=== PATIENT | female | born 1985 | race Caucasian/White ===

== ENCOUNTER 2017-02-06 09:26 | Emergency (ER) | payer MEDICAID ==
[2017-02-06 09:40] VITALS: BP 102/68
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
== END 2017-02-06 10:54 | disposition home or self-care (01) ==
LOC: UCCORT 09:26
DX: S00.83XA Contusion of other part of head, initial encounter (principal); X79.XXXA Intentional self-harm by blunt object, initial encounter; Y93.9 Activity, unspecified; Y92.199 Unspecified place in other specified residential institution as the place of occurrence of the external cause; F90.9 Attention-deficit hyperactivity disorder, unspecified type; R56.9 Unspecified convulsions; F79 Unspecified intellectual disabilities; F41.9 Anxiety disorder, unspecified; F32.9 Major depressive disorder, single episode, unspecified; F60.3 Borderline personality disorder
CPT/HCPCS: 99202; G0463

== ENCOUNTER 2017-04-04 17:07 | Emergency (ER) | payer MEDICAID ==
[2017-04-04 18:37] VITALS: BP 106/74
--- NOTE | 2017-04-04 18:53 | UC ---
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 Hx Last Menstrual Period: on depo ?: No Onset/Duration: Sudden Onset, Lasting Days - 2-3, Still Present Timing: Constant Severity Initially: Moderate Severity Currently: Moderate Pain Intensity: 6 Character: Burning Aggravating Factor(s): Urination Alleviating Factor(s): Nothing - Allergies/Home Medications Allergies/Adverse Reactions: Allergies Allergy/AdvReac Type Severity Reaction Status Date / Time No Known Allergies Allergy Verified 04/04/17 18:36 PMH/Surg Hx/FS Hx/Imm Hx Previously Healthy: No Endocrine History: Hypothyroidism Neurological History: Seizures Psychological History: Anxiety, Bipolar Disorder - Surgical History Surgical History: Yes Surgery Procedure, Year, and Place: SURGERY AN INFANT - Family History Known Family History: Positive: Hypertension - Social History Occupation: Employed Full-time Lives: [place] Alcohol Use: Rare Substance Use Type: None Smoking Status (MU): Never Smoked Tobacco Review of Systems Constitutional: Negative Skin: Negative Eyes: Negative ENT: Negative Respiratory: Negative Cardiovascular: Negative Gastrointestinal: Negative Genitourinary: Negative, Dysuria, Frequency, Urgency Motor: Negative Neurovascular: Negative Musculoskeletal: Negative Neurological: Negative Psychological: Negative Is Patient Immunocompromised?: No All Other Systems Reviewed And Are Negative: Yes Physical Exam Triage Information Reviewed: Yes Appearance: Well-Appearing, No Pain Distress, Well-Nourished Vital Signs: Initial Vital Signs Temp 98.7 F 04/04/17 18:28 Pulse 86 04/04/17 18:28 Resp 16 04/04/17 18:28 BP 106/74 04/04/17 18:28 Pulse Ox 100 04/04/17 18:28 Vital Signs Reviewed: Yes Eye Exam: Normal Eyes: Positive: Conjunctiva Clear ENT Exam: Normal ENT: Positive: Normal ENT inspection, Hearing grossly normal. Negative: Nasal congestion, Nasal drainage, Tonsillar swelling, Tonsillar exudate, Trismus, Muffled voice, Hoarse voice, Dental tenderness Dental Exam: Normal Neck exam: Normal Neck: Positive: Supple, Nontender, No Lymphadenopathy Respiratory Exam: Normal Respiratory: Positive: Chest non-tender, Lungs clear, Normal breath sounds, No respiratory distress, No accessory muscle use Cardiovascular Exam: Normal Cardiovascular: Positive: RRR, No Murmur, Pulses Normal, Brisk Capillary Refill Abdominal Exam: Normal Abdomen Description: Positive: No Organomegaly, Soft, Other: - suprapubic pain. Negative: CVA Tenderness (R), CVA Tenderness (L) Bowel Sounds: Positive: Present Musculoskeletal Exam: Normal Musculoskeletal: Positive: Strength Intact, ROM Intact, No Edema Neurological Exam: Normal Neurological: Positive: Alert, Muscle Tone Normal Psychological Exam: Normal Skin Exam: Normal UC Physical Exam Vital Signs On Initial Exam: Initial Vitals Temp Pulse Resp BP Pulse Ox 98.7 F 86 16 106/74 100 04/04/17 18:28 04/04/17 18:28 04/04/17 18:28 04/04/17 18:28 04/04/17 18:28 - Genitalia Exam Female Genitourinary: Genitalia without Lesions/Masses - tender labia minora with localized irratation---no vaginal discharge or bleeding ---internal exam not down as patient not tolerating Diagnostics - Laboratory Diagnostic Studies Completed/Ordered: ua -+2 blood otherwise wnl Complaint Female Dx - Course Course Of Treatment: external barrier cream and assist with hygiene prn, follow hematuria with pcp,. culture urine - Differential Dx/Diagnosis Provider Diagnoses: external gential irratation, hematuria Discharge - Discharge Plan Condition: Stable Disposition: HOME Patient Education Materials: Topical Barrier Preparations (On the skin), Hematuria (ED) Referrals: Merrick WALSH,Flora [Primary Care Provider] - 4 Days Additional Instructions: 1. Will culture urine 2. Assist patient with Hygiene and use barrier cream 3. Follow hematuria with PCP in next 3-5 days 4. To ED should symptoms worsen or fail to improve
--- NOTE | 2017-04-05 15:15 | UC ---
- Progress Note Progress Note: Please call patients residence and advise patient is positive for "GARDNERELLA VAGINALIS" This is treated with Flagyl 500mg po bid for 7 days... and assure patient gets rechecked by pcp---med has been sent to patients pharmacy
== END 2017-04-04 20:12 | disposition home or self-care (01) ==
LOC: UCEAST 17:07
DX: R31.9 Hematuria, unspecified (principal); N89.8 Other specified noninflammatory disorders of vagina; B96.89 Other specified bacterial agents as the cause of diseases classified elsewhere
CPT/HCPCS: 81003; 84702; 87086; 87480; 87510; 87660; 99212; G0463

== ENCOUNTER 2017-07-24 14:41 | Emergency (ER) | payer MEDICAID ==
[2017-07-24 15:07] VITALS: BP 97/62
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
== END 2017-07-24 15:42 | disposition home or self-care (01) ==
LOC: UCCORT 14:41
DX: L56.2 Photocontact dermatitis [berloque dermatitis] (principal)
CPT/HCPCS: 99211; G0463

== ENCOUNTER 2018-08-13 14:10 | Emergency (ER) | payer MEDICAID ==
--- OUTSIDE RECORDS SUMMARY | 2018-08-13 15:05 | XMS REPORT | Continuity of Care Document ---
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 Constipation Roslyn Smith NP Onset: 08/31/2016 Mood disorder Roslyn Smith NP Onset: 08/31/2016 Seizure Roslyn Smith NP Onset: 08/31/2016 Mild recurrent major depression Roslyn Smith NP Onset: 08/31 Family History Date Family Member(s) Observation Comments Mother Depression Social History Type Date Description Comments Sex Unknown ETOH Use Denies alcohol use Tobacco Use Reviewed: 04/16/18 Patient has never smoked Smoking Status Reviewed: 07/18/18 Patient has never smoked Allergies, Adverse Reactions, Alerts Description No Known Drug Allergies Medications Active Medications SIG Qnty Indications Ordering Date Provider Stool Softener Take 2 Capsules 60caps Nanava, 06/11/19 100mg Capsules (200MG) By Mouth AT Flora Goodman MD 19 Bedtime * Hold For Loose Stools * Cabergoline one tablet twice per [facility], 10/24/19 0.5mg Tablets week MD Rubia Doss Medroxyprogesterone Inject 1ML (150MG) un [facility], 09/13/19 Acetate Intramuscularly MD Rubia Doss 150mg/ml Suspension Every 3 Months Clonazepam 1 by mouth three 90tabs [facility], 08/03/19 1mg Tablets times a day MDD 3 MD Rubia Doss Risperdal 1 tab b ymouth q 30tabs [facility], 08/03/19 3mg Tablets daily MD Rubia Doss Premarin 1 By Mouth Every Day 30tabs Deya, 03/11/19 0.3mg Tablets MD Rubia Doss Fluticasone Propionate use [address] [facility], 11/16/19 nostril daily MD Ashely Doss 50mcg/Act Suspension SM Triple Antibiotic Apply Topically To [facility], 10/12/19 Affected Area Up To MD Ashely Doss 3.5-400-5000 Ointment Four Times A Day as Needed *May Use Up To 5 Consecutive Day Q-Tussin Take 2 Teaspoonfuls [facility] Deya, 10/12/19 100mg/5ML Solution By Mouth Every 4 Flora Goodman MD 17 Hours as Needed For Minor Cough Without Fever >100 [place]-Acid Take 1 Tablespoonful [facility], 09/07/19 [id number] By Mouth Every 4 MD Ashely Doss Suspension Hours as Needed For Stomach Upset And Heart Burn SM Hydrocortisone Apply Topically To [facility], 09/07/19 Maximum Strength Affected Area Up To MD Ashely Doss 1% Ointment 2Times A Day * May Use For Up To 3 Consecutive Days* Docqlace Take 2 Capsules 60caps Nanavati, 04/14/19 100mg Capsules (200MG) By Mouth AT Flora Goodman MD 16 Bedtime * Hold For Loose Stools * Fleet Enema give enema today- if 2units Merrick, 05/30/19 7-19GM/118ML no bm, repeat in 12 Flora Goodman MD 15 Enema hours. if no bm after 2nd enema- call pcp. [place] Carbonate one capsule three Other 02/23/19 300mg times a day Provider 15 Capsules Vitamin D3 Take 1 Capsule By 30capisaias Sin, 11/20/19 2000Unit Capsules Mouth Daily For Flora Goodman MD 14 Supplement Levothyroxine Sodium Take 1 Tablet By 30tabs [place], 11/01/19 75mcg Mouth 30 Minutes REJI Davis 13 Tablets Before Breakfast Citalopram Hydrobromide Take 1 Tablet By 30tabs Merrick, 06/15/19 20mg Mouth Daily Flora Goodman MD 12 Tablets Latanoprost 1 drop in each eye Unknown 0.005% Solution at bedtime 00 Biotene Dry Mouth use several times a Unknown Liquid day when mouth is 00 very dry otc Mapap Take 2 Tablets By 00tabs Merrick, 325mg Tablets Mouth Every 4 Hours Flora Goodman MD 00 Asneeded For Pain Or Fever >101*May Take Up To 7 Days Consecutively Risperidone one table by mouth Unknown 2mg Tablets every afternoon (in 00 addition to Am dose of 3mg) Quetiapine Fumarate one tablet by mouth Unknown 100mg at bedtime 00 Tablets Lamotrigine Take 1 Tablet By 60tabs Merrick, 100mg Tablets Mouth 2 Times Daily Flora Goodman MD 00 Oxybutynin Chloride ER 1 by mouth every day Unknown 10mg 00 Tablets ER 24HR History Medications Lamictal 1 by mouth twice a 60tabs B37.2 Flora Sin 08/02/2017 - 100mg day MD Rex 06/05/2018 Tablets Klonopin one at bedtime Flora Sin 04/19/2017 - 1mg Tablets MD Rex 04/19/2017 Risperdal 1 po tid 90tabs Flora Sin 04/09/2017 - 1mg Tablets MMD Thony 08/02/2017 Metronidazole 1 by mouth twice a 14tabs Flora Sin 04/09/2017 - 500mg day x 7 days. MD Rex 04/19/2017 Tablets Cipro 1 by mouth twice a 20tabs Flora Sin 07/19/2015 - 250mg Tablets day MD Rex 08/31/2015 Depo-Provera 150mg intramuscular 1ml Flora Sin 12/22/2014 - 150mg/ml every 3 months MD Rex 09/12/2017 Suspension Lactulose 30ml po x 2 days 60ml Flora Sin 05/29/2014 - 10GM/15ML MD Rex 03/15/2017 Solution Nystatin apply thin layer to 1units 112.3 Flora Sin 02/23/2014 - affected area on abd MMD Thony 04/09/2017 [id number]/GM Cream twice a day Lamotrigine 2 po three times a Other Provider 02/23/2014 - 25mg day 02/23/2014 Tablets Lamictal 2 po three times a 112.3 Other Provider 02/23/2014 - 25mg Tablets day 08/02/2017 Trospium Chloride take 1 tablet by 60tabs Flora Sin 01/28/2013 - mouth 2 times daily Cedric.MD 03/15/2017 20mg Tablets for bladder control Tropsium 1 tab PO bid Other Provider 10/15/2012 - 20mg 01/28/2013 D/C Order D/C ibuprofen 200 mg Flora Sin 08/26/2012 - 3 tabs po prn. PT MD Rex 09/09/2012 may only take 2 tabs po prn Ibuprofen 2 tabs by mouth 60tabs Flora Sin 08/19/2012 - 200mg every 4 hours as MMD Thony 03/15/2017 Tablets needed pain and menstraul cramps, with food up to 8 days consecutively Levothyroxine Sodium 1 po qd 30tabs Flora Sin 08/05/2012 - MD Rex 10/31/2012 50mcg Tablets Cyclessa 1 by mouth every day 1PK lFora Sin 05/09/2012 - MD Rex 08/31/2015 0.1/0.125/0.15 -0.025 mg Tablets Cyclessa 1 po qd 3Packs Flora Sin 05/09/2012 - Tablets MMD Thony 05/09/2012 Levothyroxine Sodium 1 po qd 30tabs Flora Sin 01/19/2012 - MD Rex 08/05/2012 75mcg Tablets Azithromycin 2 tab po today 1 tab 1Pack 461.0 Flora Sin 11/27/2011 - 250mg po qd x 4 M., 01/21/2012 Tablets Vesicare 1 po qd 30tabs Flora Sin 06/15/2011 - 10mg Tablets MMD Thony 10/15/2012 Cyclessa 1 po qd 3Packs Flora Sin 06/15/2011 - Tablets MD Rex 05/09/2012 Colace 2 tabs by mouth 60caps Flora Sin 06/15/2011 - 100mg Capsules every at bedtime MD Rex 04/14/2015 Risperdal 1 po qd 30tabs Flora Sin 06/15/2011 - 4mg Tablets MMD Thony 04/09/2017 [place] Carbonate 2 po bid 60caps Flora Sin 06/15/2011 - MD Rex 02/23/2014 300mg Capsules Klonopin 1 po qid 90tabs Flora Sin 06/15/2011 - 1mg Tablets MMD Thony 08/02/2017 Lamictal 2 po three times a SaadiaavaFlora rice 06/15/2011 - 25mg Tablets day MD Rex 02/23/2014 Levothyroxine Sodium 1 po qd 30tabs Odilia 06/09/2011 - NAVJOT Fan 01/19/2012 50mcg Tablets Medications Administered in Office Medication SIG Qnty Indications Ordering Provider Date Medroxyprogesterone Acetate, 1MG Farchione, Susan, 06/26/2018 - Use 150MG For Depo-Provera PA Injection Medroxyprogesterone Acetate, 1MG Farchione, Susan, 03/19/2018 - Use 150MG For Depo-Provera PA Injection Medroxyprogesterone Acetate, 1MG Farchione, Susan, 12/17/2017 - Use 150MG For Depo-Provera PA Injection Medroxyprogesterone Acetate, 1MG Location V1 Nurse 2 09/14/2017 - Use 150MG For Depo-Provera Injection Medroxyprogesterone Acetate, 1MG Nanavati, Digant M., 06/12/2017 - Use 150MG For Depo-Provera MD Injection Medroxyprogesterone Acetate, 1MG Farchione, Susan, 03/15/2017 - Use 150MG For Depo-Provera PA Injection Medroxyprogesterone Acetate, 1MG Nanavati, Digant M., 12/04/2016 - Use 150MG For Depo-Provera MD Injection Medroxyprogesterone Acetate, 1MG Depdennis Aquinoo, 08/31/2016 - Use 150MG For Depo-Provera Roslyn, SENIOR ANALYST PROGRAMMER Injection Medroxyprogesterone Acetate, 1MG Nanavati, Digant M., 06/15/2016 - Use 150MG For Depo-Provera MD Injection Medroxyprogesterone Acetate, 1MG Nanavati, Digant M., 06/15/2016 - Use 150MG For Depo-Provera MD Injection Medroxyprogesterone Acetate, 1MG Nanavati, Digant M., 03/16/2016 - Use 150MG For Depo-Provera MD Injection Medroxyprogesterone Acetate, 1MG Nanavati, Digant M., 12/16/2015 - Use 150MG For Depo-Provera MD Injection Medroxyprogesterone Acetate, 1MG Nanavati, Digant M., 10/04/2015 - Use 150MG For Depo-Provera MD Injection Medroxyprogesterone Acetate, 1MG Nanavati, Digant M., 07/05/2015 - Use 150MG For Depo-Provera MD Injection Medroxyprogesterone Acetate, 1MG Nanavati, Digant M., 04/05/2015 - Use 150MG For Depo-Provera MD Injection Medroxyprogesterone Acetate, 1MG Nataliia Kenny, SENIOR ANALYST PROGRAMMER 01/05/2015 - Use 150MG For Depo-Provera Injection PPD Nanavati, Digant M., 09/15/2011 Injection MD Immunizations CPT Code Status Date Vaccine Lot # [id number] Given 12/10/2017 Influenza Virus Vaccine,Quadrivalent,Split,Preserv [id number] Free, 0.5mL,[place] [address] Given 12/04/2016 Influenza Virus Vaccine,Quadrivalent,Split,Preserv [id number] Free, 0.5mL,[place] 28079 Given 12/16/2015 Influenza Vac, Quadrivalent, Split, 0.5mL Dosage, [id number] Im Use 48056 Given 08/31/2015 Tdap (Adacel) Ages 7 And Above Only 23288 Given 11/03/2014 Influenza Vac, Quadrivalent, Split, 0.5mL Dosage, [id number] Im Use 48300 Given 11/19/2013 Influenza Virus Vaccine,Quadrivalent,Split,Preserv [id number] Free, 0.5mL,Im [id number] Given 01/19/2012 Fluvirin Immunization [id number] Given 11/12/2006 Tdap (Adacel) Ages 7 And Above Only Vital Signs Date Vital Result Comment 07/18/2018 1:11pm Body Temperature 97.9 F Weight 189.00 lb Heart Rate 71 /min BP Systolic 110 mmHg BP Diastolic 76 mmHg Respiratory Rate 16 /min Height 64 inches 5'4" O2 % BldC Oximetry 97 % BMI (Body Mass Index) 32.4 kg/m2 06/26/2018 3:30pm Weight 190.00 lb Heart Rate 89 /min BP Systolic 104 mmHg BP Diastolic 82 mmHg Respiratory Rate 16 /min Height 64 inches 5'4" O2 % BldC Oximetry 98 % BMI (Body Mass Index) 32.6 kg/m2 06/05/2018 1:09pm Body Temperature 98.4 F Weight 187.00 lb Heart Rate 54 /min BP Systolic 109 mmHg BP Diastolic 83 mmHg Respiratory Rate 16 /min Height 64 inches 5'4" O2 % BldC Oximetry 98 % BMI (Body Mass Index) 32.1 kg/m2 04/16/2018 10:19am Body Temperature 98.2 F Weight 187.31 lb Heart Rate 64 /min BP Systolic 96 mmHg BP Diastolic 69 mmHg Respiratory Rate 16 /min Height 64 inches 5'4" O2 % BldC Oximetry 98 % BMI (Body Mass Index) 32.1 kg/m2 03/19/2018 9:51am Weight 185.00 lb Heart Rate 68 /min BP Systolic 90 mmHg BP Diastolic 70 mmHg Respiratory Rate 16 /min Height 64 inches 5'4" O2 % BldC Oximetry 93 % BMI (Body Mass Index) 31.8 kg/m2 01/16/2018 9:45am Weight 180.00 lb Heart Rate 64 /min BP Systolic 98 mmHg BP Diastolic 76 mmHg Respiratory Rate 16 /min Height 64 inches 5'4" O2 % BldC Oximetry 99 % BMI (Body Mass Index) 30.9 kg/m2 12/17/2017 9:43am Weight 178.00 lb Heart Rate 57 /min BP Systolic 89 mmHg BP Diastolic 58 mmHg Respiratory Rate 16 /min Height 64 inches 5'4" O2 % BldC Oximetry 97 % BMI (Body Mass Index) 30.6 kg/m2 10/23/2017 1:04pm Weight 176.00 lb Heart Rate 91 /min BP Systolic 118 mmHg BP Diastolic 84 mmHg Respiratory Rate 16 /min Height 64 inches 5'4" O2 % BldC Oximetry 95 % BMI (Body Mass Index) 30.2 kg/m2 10/11/2017 3:09pm Body Temperature 98.0 F Weight 174.00 lb Heart Rate 78 /min BP Systolic 122 mmHg BP Diastolic 78 mmHg Respiratory Rate 16 /min Height 64 inches 5'4" O2 % BldC Oximetry 98 % BMI (Body Mass Index) 29.9 kg/m2 09/11/2017 10:30am Body Temperature 98.2 F Weight 174.00 lb Heart Rate 63 /min BP Systolic 100 mmHg BP Diastolic 68 mmHg Respiratory Rate 16 /min Height 64 inches 5'4" O2 % BldC Oximetry 98 % BMI (Body Mass Index) 29.9 kg/m2 06/12/2017 2:02pm Body Temperature 98.6 F Weight 169.00 lb Heart Rate 63 /min BP Systolic 102 mmHg BP Diastolic 73 mmHg Respiratory Rate 16 /min Height 64 inches 5'4" O2 % BldC Oximetry 98 % BMI (Body Mass Index) 29.0 kg/m2 04/19/2017 2:08pm Body Temperature 98.2 F Weight 165.00 lb Heart Rate 76 /min BP Systolic 124 mmHg BP Diastolic 70 mmHg Height 64 inches 5'4" O2 % BldC Oximetry 98 % BMI (Body Mass Index) 28.3 kg/m2 04/09/2017 1:02pm Body Temperature 97.8 F Weight 165.00 lb Heart Rate 84 /min BP Systolic 126 mmHg BP Diastolic 80 mmHg Height 64 inches 5'4" O2 % BldC Oximetry 99 % BMI (Body Mass Index) 28.3 kg/m2 03/15/2017 11:10am Body Temperature 98.7 F Weight 163.00 lb Heart Rate 70 /min BP Systolic 100 mmHg BP Diastolic 74 mmHg Respiratory Rate 16 /min Height 64 inches 5'4" O2 % BldC Oximetry 98 % BMI (Body Mass Index) 28.0 kg/m2 03/06/2017 1:07pm Body Temperature 98.0 F Weight 162.00 lb Heart Rate 68 /min BP Systolic 105 mmHg BP Diastolic 57 mmHg Respiratory Rate 16 /min Height 64 inches 5'4" O2 % BldC Oximetry 100 % BMI (Body Mass Index) 27.8 kg/m2 12/04/2016 10:59am Body Temperature 97.6 F Weight 152.00 lb Heart Rate 60 /min BP Systolic 118 mmHg BP Diastolic 70 mmHg Respiratory Rate 16 /min Height 64 inches 5'4" O2 % BldC Oximetry 98 % BMI (Body Mass Index) 26.1 kg/m2 11/15/2016 2:45pm Body Temperature 98.2 F Weight 153.00 lb Heart Rate 60 /min BP Systolic 116 mmHg BP Diastolic 62 mmHg Height 64 inches 5'4" O2 % BldC Oximetry 99 % BMI (Body Mass Index) 26.3 kg/m2 08/31/2016 9:59am Body Temperature 97.9 F Weight 151.00 lb Heart Rate 78 /min BP Systolic 132 mmHg BP Diastolic 78 mmHg Height 64 inches 5'4" O2 % BldC Oximetry 98 % BMI (Body Mass Index) 25.9 kg/m2 07/17/2016 2:16pm Body Temperature 98.4 F Weight 154.00 lb Heart Rate 63 /min BP Systolic 109 mmHg BP Diastolic 71 mmHg Respiratory Rate 18 /min Height 64 inches 5'4" O2 % BldC Oximetry 100 % BMI (Body Mass Index) 26.4 kg/m2 06/15/2016 2:01pm Body Temperature 97.6 F Weight 155.00 lb Heart Rate 83 /min BP Systolic 98 mmHg BP Diastolic 70 mmHg Respiratory Rate 16 /min Height 64 inches 5'4" O2 % BldC Oximetry 99 % BMI (Body Mass Index) 26.6 kg/m2 04/04/2016 11:47am Body Temperature 97.4 F Weight 157.00 lb Heart Rate 76 /min BP Systolic 104 mmHg BP Diastolic 66 mmHg Respiratory Rate 18 /min O2 % BldC Oximetry 98 % 03/16/2016 8:55am Body Temperature 99.0 F Weight 162.00 lb Heart Rate 78 /min BP Systolic 104 mmHg BP Diastolic 76 mmHg Respiratory Rate 16 /min Height 64 inches 5'4" O2 % BldC Oximetry 97 % BMI (Body Mass Index) 27.8 kg/m2 12/16/2015 9:58am Body Temperature 97.7 F Weight 164.00 lb Heart Rate 96 /min BP Systolic 102 mmHg BP Diastolic 66 mmHg Respiratory Rate 18 /min Height 64 inches 5'4" O2 % BldC Oximetry 99 % BMI (Body Mass Index) 28.1 kg/m2 10/04/2015 8:27am Body Temperature 97.8 F Weight 163.00 lb Heart Rate 68 /min BP Systolic 98 mmHg BP Diastolic 64 mmHg Respiratory Rate 16 /min Height 64 inches 5'4" O2 % BldC Oximetry 98 % BMI (Body Mass Index) 28.0 kg/m2 08/31/2015 10:11am Body Temperature 98.4 F Weight 163.00 lb Heart Rate 101 /min BP Systolic 110 mmHg BP Diastolic 70 mmHg Respiratory Rate 18 /min Height 64 inches 5'4" O2 % BldC Oximetry 99 % BMI (Body Mass Index) 28.0 kg/m2 07/05/2015 10:04am Body Temperature 98.8 F Weight 166.00 lb Heart Rate 78 /min BP Systolic 122 mmHg BP Diastolic 76 mmHg Respiratory Rate 18 /min Height 64 inches 5'4" O2 % BldC Oximetry 99 % BMI (Body Mass Index) 28.5 kg/m2 04/05/2015 9:40am Body Temperature 98.3 F Weight 171.00 lb Heart Rate 87 /min BP Systolic 110 mmHg BP Diastolic 72 mmHg Respiratory Rate 18 /min Height 64 inches 5'4" O2 % BldC Oximetry 98 % BMI (Body Mass Index) 29.3 kg/m2 02/02/2015 10:21am Weight 172.00 lb Heart Rate 76 /min BP Systolic 110 mmHg BP Diastolic 70 mmHg Respiratory Rate 18 /min Height 64 inches 5'4" BMI (Body Mass Index) 29.5 kg/m2 01/05/2015 8:11am Weight 175.38 lb Heart Rate 72 /min BP Systolic 87 mmHg BP Diastolic 63 mmHg Height 64 inches 5'4" BMI (Body Mass Index) 30.1 kg/m2 12/22/2014 3:43pm Body Temperature 98.9 F Weight 175.00 lb Heart Rate 69 /min BP Systolic 102 mmHg BP Diastolic 68 mmHg Respiratory Rate 18 /min Height 64 inches 5'4" O2 % BldC Oximetry 98 % BMI (Body Mass Index) 30.0 kg/m2 11/03/2014 1:14pm Body Temperature 98.6 F Weight 177.00 lb Heart Rate 60 /min BP Systolic 122 mmHg BP Diastolic 68 mmHg Respiratory Rate 18 /min Height 64 inches 5'4" O2 % BldC Oximetry 98 % BMI (Body Mass Index) 30.4 kg/m2 08/17/2014 2:07pm Body Temperature 96.2 F Weight 181.25 lb Heart Rate 80 /min BP Systolic 120 mmHg BP Diastolic 82 mmHg Respiratory Rate 16 /min Height 64 inches 5'4" O2 % BldC Oximetry 98 % BMI (Body Mass Index) 31.1 kg/m2 08/03/2014 11:19am Body Temperature 97.2 F Weight 183.00 lb Heart Rate 57 /min BP Systolic 109 mmHg BP Diastolic 68 mmHg Respiratory Rate 18 /min Height 64 inches 5'4" BMI (Body Mass Index) 31.4 kg/m2 05/26/2014 10:58am Body Temperature 97.6 F Weight 187.00 lb Heart Rate 62 /min BP Systolic 110 mmHg BP Diastolic 70 mmHg Respiratory Rate 16 /min Height 64 inches 5'4" O2 % BldC Oximetry 95 % BMI (Body Mass Index) 32.1 kg/m2 05/20/2014 2:18pm Body Temperature 99.2 F Weight 187.00 lb Heart Rate 112 /min BP Systolic 108 mmHg BP Diastolic 64 mmHg Respiratory Rate 18 /min Height 64 inches 5'4" O2 % BldC Oximetry 96 % BMI (Body Mass Index) 32.1 kg/m2 05/12/2014 10:00am Body Temperature 97.4 F Weight 185.00 lb Heart Rate 64 /min BP Systolic 96 mmHg BP Diastolic 60 mmHg Respiratory Rate 18 /min Height 64 inches 5'4" O2 % BldC Oximetry 96 % BMI (Body Mass Index) 31.8 kg/m2 02/23/2014 10:43am Body Temperature 97.5 F Heart Rate 64 /min BP Systolic 118 mmHg BP Diastolic 84 mmHg Respiratory Rate 16 /min Height 64 inches 5'4" O2 % BldC Oximetry 98 % 01/05/2014 2:59pm Body Temperature 98.4 F Weight 200.00 lb Heart Rate 72 /min BP Systolic 104 mmHg BP Diastolic 58 mmHg Respiratory Rate 18 /min Height 64 inches 5'4" BMI (Body Mass Index) 34.3 kg/m2 12/29/2013 4:08pm Body Temperature 98.0 F Weight 200.00 lb Heart Rate 84 /min BP Systolic 106 mmHg BP Diastolic 64 mmHg Respiratory Rate 16 /min Height 64 inches 5'4" BMI (Body Mass Index) 34.3 kg/m2 11/19/2013 9:04am Body Temperature 97.6 F Weight 203.00 lb Heart Rate 84 /min BP Systolic 114 mmHg BP Diastolic 74 mmHg Respiratory Rate 16 /min Height 64 inches 5'4" BMI (Body Mass Index) 34.8 kg/m2 09/22/2013 3:44pm Weight 206.25 lb Heart Rate 83 /min BP Systolic 95 mmHg BP Diastolic 73 mmHg 07/30/2013 11:47am Body Temperature 96.3 F Weight 210.00 lb Heart Rate 76 /min BP Systolic 106 mmHg BP Diastolic 62 mmHg Respiratory Rate 18 /min Height 62 inches 5'2" BMI (Body Mass Index) 38.4 kg/m2 05/15/2013 10:07am Body Temperature 97.1 F Weight 213.00 lb Heart Rate 66 /min BP Systolic 116 mmHg BP Diastolic 80 mmHg Respiratory Rate 16 /min Height 62 inches 5'2" O2 % BldC Oximetry 98 % BMI (Body Mass Index) 39.0 kg/m2 04/14/2013 10:17am Body Temperature 97.9 F Weight 215.00 lb Heart Rate 84 /min BP Systolic 118 mmHg BP Diastolic 80 mmHg Respiratory Rate 16 /min Height 62 inches 5'2" O2 % BldC Oximetry 98 % BMI (Body Mass Index) 39.3 kg/m2 01/14/2013 10:29am Body Temperature 99.4 F Weight 215.00 lb Heart Rate 76 /min BP Systolic 110 mmHg BP Diastolic 72 mmHg Respiratory Rate 16 /min Height 62 inches 5'2" O2 % BldC Oximetry 96 % BMI (Body Mass Index) 39.3 kg/m2 10/15/2012 9:15am Body Temperature 98.6 F Weight 214.00 lb Heart Rate 68 /min BP Systolic 106 mmHg BP Diastolic 58 mmHg Respiratory Rate 16 /min Height 62 inches 5'2" O2 % BldC Oximetry 98 % BMI (Body Mass Index) 39.1 kg/m2 08/19/2012 3:04pm Body Temperature 98.3 F Weight 214.25 lb Heart Rate 72 /min BP Systolic 102 mmHg BP Diastolic 80 mmHg Respiratory Rate 16 /min Height 62 inches 5'2" BMI (Body Mass Index) 39.2 kg/m2 07/15/2012 9:29am Body Temperature 97.8 F Weight 214.00 lb Heart Rate 68 /min BP Systolic 104 mmHg BP Diastolic 70 mmHg Respiratory Rate 16 /min Height 62 inches 5'2" BMI (Body Mass Index) 39.1 kg/m2 04/12/2012 9:14am Body Temperature 98.0 F Weight 222.00 lb Heart Rate 78 /min BP Systolic 104 mmHg BP Diastolic 72 mmHg Respiratory Rate 16 /min Height 62 inches 5'2" BMI (Body Mass Index) 40.6 kg/m2 03/01/2012 11:03am Body Temperature 97.5 F Weight 220.00 lb Heart Rate 64 /min BP Systolic 122 mmHg BP Diastolic 86 mmHg Respiratory Rate 16 /min Height 62 inches 5'2" BMI (Body Mass Index) 40.2 kg/m2 01/19/2012 3:19pm Body Temperature 98.5 F Weight 221.00 lb Heart Rate 70 /min BP Systolic 104 mmHg BP Diastolic 64 mmHg Respiratory Rate 16 /min Height 62 inches 5'2" BMI (Body Mass Index) 40.4 kg/m2 11/27/2011 2:57pm Body Temperature 98.4 F Weight 221.00 lb Heart Rate 80 /min BP Systolic 102 mmHg BP Diastolic 70 mmHg Respiratory Rate 16 /min Height 62 inches 5'2" BMI (Body Mass Index) 40.4 kg/m2 09/15/2011 10:41am Body Temperature 98.0 F Weight 225.00 lb Heart Rate 84 /min BP Systolic 106 mmHg BP Diastolic 72 mmHg Respiratory Rate 16 /min Height 62 inches 5'2" BMI (Body Mass Index) 41.1 kg/m2 05/29/2011 8:21am Body Temperature 98.8 F Weight 225.00 lb Heart Rate 84 /min BP Systolic 108 mmHg BP Diastolic 70 mmHg Respiratory Rate 18 /min Height 62 inches 5'2" BMI (Body Mass Index) 41.1 kg/m2 Results Test Date Facility Test Result H/L Range Note CBC with Auto Diff-fcmg 04/16/2018 [facility] WBC 12.8 10*3/uL High (4.1- 11.0) 1 RBC 4.49 10*6/uL (4.00-5.40) HGB 12.6 g/dL (12.0-16.0) HCT 40.3 % (36.0-47.0) MCV 89.8 fL (80.0-95.0) MCH 28.1 pg (27.0-32.0) MCHC 31.3 g/dL Low (32.0-36.0) RDW 15.5 % High (10.5-14.5) PLT 331 10*3/uL (150-450) MPV 9.8 fL (7.1-10.7) Neut % 70.8 % (35.0-75.0) Lymph % 20.1 % (16.0-52.0) [place] % 6.2 % (0.0-8.0) Eos % 2.0 % (0.0-5.0) Baso % 0.9 % (0.0-4.0) Neut # 9.1 10*3/uL High (1.8-7.7) Lymph # 2.6 10*3/uL (1.2-4.8) [place] # 0.8 10*3/uL (0.0-0.8) Eos # 0.3 10*3/uL (0.0-0.5) Baso # 0.1 10*3/uL (0.0-0.2) 2 Comprehensive Met Panel-[facility] 04/16/2018 [facility] Sodium 139 mmol/L (136- 145) Potassium 5.2 mmol/L (3.6-5.2) Chloride 105 mmol/L (100-108) Co2 27 mmol/L (22-31) Anion Gap 7 mmol/L (7-16) Urea Nitrogen 15 mg/dL (7-24) Creatinine 0.66 mg/dL (0.60-1.00) BUN/Creat Ratio 22.7 RATIO High (10.0-20.0) Glucose 51 mg/dL Low (70-99) Calcium 9.1 mg/dL (8.4-10.2) Total Protein 7.0 g/dL (6.4-8.2) Albumin 3.4 g/dL Low (3.5-4.6) Globulin 3.6 g/dL (2.7-4.3) Alb/Glob Ratio 0.9 RATIO Alkaline Phosphatase 121 U/L High (45-117) Bilirubin,Total 0.2 mg/dL (0.0-1.0) Ast (Sgot) 24 U/L (11-39) Alt (SGPT) 50 U/L (12-78) GFR >60 ml/min/1.73m2 (>59) GFR ( Amer) >60 ml/min/1.73m2 (>59) GFR Interpretation (SEE NOTE) 3 Laboratory test finding 04/16/2018 [facility] Vitamin B12 661 pg/mL (193- 986) 4 Vitamin D 25 Hydroxy 41 ng/mL (31-100) 5 Prolactin 241.1 ng/mL 6 Lipid Panel-RL 04/16/2018 [facility] Cholesterol @ 161 mg/dL (0-200) Triglyceride @ 82 mg/dL (30-200) HDL Cholesterol @ 52 mg/dL (>40) 7 Chol/HDL Ratio 3.1 RATIO 8 LDL Chol (Calc) 93 mg/dL (<130) 9 Laboratory test 03/19/2018 Done In [facility] Office 1 Preg Urine Negative Negative finding (In-House) Hemoglobin A1c 03/07/2018 [facility] Hgb A1c MFr Bld 5.1 % 4.0-6.0 10 HPLC Est. average glucose Bld gHb Est-mCnc 100 mg/dL <126 Laboratory test finding 03/07/2018 [facility] TSH 1.670 u[IU]/mL 0.270 -4.200 Free Thyroxine 1.10 ng/dL 0.93-1.70 Lipid Profile 1 03/07/2018 [facility] Cholest SerPl-mCnc 170 mg/dL < 200 Trigl SerPl-mCnc 81 mg/dL <150 HDLc SerPl-mCnc 59 mg/dL >50 LDLc SerPl Calc-mCnc 95 mg/dL <100 VLDLc SerPl Calc-mCnc 16 mg/dL 16-42 NonHDLc SerPl-mCnc 111 mg/dL <130 Laboratory test finding 03/07/2018 [facility] Vit D 25 Hydroxy 39 ng/mL >30 Total Comprehensive Metabolic 01/15/2018 [facility] Albumin SerPl 3.9 g/dL 3.5-5.2 Puente BCG-mCnc Bilirub SerPl-mCnc 0.3 mg/dL <1.2 Calcium SerPl-mCnc 9.5 mg/dL 8.6-10.0 Chloride SerPl-sCnc 104 mmol/L 98-107 Creat SerPl-mCnc 0.56 mg/dL 0.4-1.0 Glucose SerPl-mCnc 87 mg/dL 70-140 Alp SerPl-cCnc 104 U/L 35-104 Potassium SerPl-sCnc 4.7 mmol/L 3.5-5.1 Prot SerPl-mCnc 6.3 g/dL Low 6.4-8.3 Sodium SerPl-sCnc 138 mmol/L 136-145 Ast SerPl-cCnc 21 U/L <32 BUN SerPl-mCnc 14 mg/dL 6-20 Osmolality SerPl Calc 286 mosm/kg 275-300 Creat/Urea nit SerPl 25 Hco3 Ser-sCnc 27 mmol/L 22-29 Alt SerPl-cCnc 39 U/L High <33 Anion Gap3 SerPl-sCnc 7 mmol/L Low 8-15 Albumin/Glob SerPl 1.6 GFR/Bsa pred.non black SerPl MDRD-ArVRat >90 mL/min/1.73m2 >60 GFR/Bsa pred.black SerPl MDRD-ArVRat >90 mL/min/1.73m2 >60 Laboratory test finding 01/15/2018 [facility] Prolactin 300.0 ng/ml High 4.7-23.3 TSH 1.290 u[IU]/mL 0.270-4.200 Vit D 25 Hydroxy Total 33 ng/mL >30 Laboratory test 12/17/2017 Done In [facility] HCG (Urine Neg finding Yes/No)RL Lipid Panel-RL 12/10/2017 [facility] Cholesterol @ 129 mg/dL (0-200) 11 Triglyceride @ 66 mg/dL (30-200) HDL Cholesterol @ 50 mg/dL (>40) 12 Chol/HDL Ratio 2.6 RATIO 13 LDL Chol (Calc) 66 mg/dL (<130) 14 Laboratory test finding 12/10/2017 [place] TSH 3.170 mIU/L (0.360-4.170 ) 15 Vitamin B12 654 pg/mL (193-986) 16 Vitamin D 25 Hydroxy 50 ng/mL (31-100) 17 Prolactin 226.5 ng/mL 18 Comprehensive Met Panel-[facility] 12/10/2017 [facility] Sodium 143 mmol/L (136- 145) Potassium 4.6 mmol/L (3.6-5.2) Chloride 109 mmol/L High (100-108) Co2 27 mmol/L (22-31) Anion Gap 7 mmol/L (7-16) Urea Nitrogen 8 mg/dL (7-24) Creatinine 0.60 mg/dL (0.60-1.00) BUN/Creat Ratio 13.3 RATIO (10.0-20.0) Glucose 79 mg/dL (70-99) Calcium 9.1 mg/dL (8.4-10.2) Total Protein 7.0 g/dL (6.4-8.2) Albumin 3.5 g/dL (3.5-4.6) Globulin 3.5 g/dL (2.7-4.3) Alb/Glob Ratio 1.0 RATIO Alkaline Phosphatase 121 U/L High (45-117) Bilirubin,Total 0.4 mg/dL (0.0-1.0) Ast (Sgot) 20 U/L (11-39) Alt (SGPT) 43 U/L (12-78) GFR >60 ml/min/1.73m2 (>59) GFR ( Amer) >60 ml/min/1.73m2 (>59) GFR Interpretation (SEE NOTE) 19 CBC with Auto Diff-fcmg 12/10/2017 [facility] WBC 12.5 10*3/uL High (4.1- 11.0) RBC 4.47 10*6/uL (4.00-5.40) HGB 12.8 g/dL (12.0-16.0) HCT 38.6 % (36.0-47.0) MCV 86.4 fL (80.0-95.0) MCH 28.6 pg (27.0-32.0) MCHC 33.2 g/dL (32.0-36.0) RDW 14.3 % (10.5-14.5) PLT 240 10*3/uL (150-450) MPV 10.1 fL (7.1-10.7) Neut % 81.2 % High (35.0-75.0) Lymph % 13.5 % Low (16.0-52.0) [place] % 4.0 % (0.0-8.0) Eos % 0.8 % (0.0-5.0) Baso % 0.5 % (0.0-4.0) Neut # 10.1 10*3/uL High (1.8-7.7) Lymph # 1.7 10*3/uL (1.2-4.8) [place] # 0.5 10*3/uL (0.0-0.8) Eos # 0.1 10*3/uL (0.0-0.5) Baso # 0.1 10*3/uL (0.0-0.2) 20 1 Urinalysis By Machine (In 11/06/2017 Done In [facility] Z#Color Yellow Ho Z#Appearance Cloudy Urine,Leukocytes - Nitrite - Urobilinogen - Urine,Protein - Z#PH Urine 6.5 Z#Blood, Urine 3+ Z#Specific [place] 1.000 Z#Ketones Urine - Z#Bili,Urine - Z#Glu Urine - Comprehensive Met Panel-[facility] 10/23/2017 [facility] Sodium 140 mmol/L (136- 145) 21 Potassium 4.5 mmol/L (3.6-5.2) Chloride 105 mmol/L (100-108) Co2 26 mmol/L (22-31) Anion Gap 9 mmol/L (7-16) Urea Nitrogen 10 mg/dL (7-24) Creatinine 0.73 mg/dL (0.60-1.00) BUN/Creat Ratio 13.7 RATIO (10.0-20.0) Glucose 67 mg/dL Low (70-99) Calcium 9.3 mg/dL (8.4-10.2) Total Protein 7.0 g/dL (6.4-8.2) Albumin 3.6 g/dL (3.5-4.6) Globulin 3.4 g/dL (2.7-4.3) Alb/Glob Ratio 1.1 RATIO Alkaline Phosphatase 112 U/L (45-117) Bilirubin,Total 0.3 mg/dL (0.0-1.0) Ast (Sgot) 22 U/L (11-39) Alt (SGPT) 47 U/L (12-78) GFR >60 ml/min/1.73m2 (>59) GFR ( Amer) >60 ml/min/1.73m2 (>59) GFR Interpretation (SEE NOTE) 22 Laboratory test finding 10/23/2017 [facility] TSH 2.130 mIU/L (0.360-4.170 ) 23 Vitamin D 25 Hydroxy 49 ng/mL (31-100) 24 Prolactin 141.1 ng/mL 25 1 Urinalysis By Machine (In 10/23/2017 Done In [facility] Z#Color Yellow Ho Z#Appearance Clear Urine,Leukocytes - Nitrite - Urobilinogen - Urine,Protein - Z#PH Urine 6.5 Z#Blood, Urine 3+ Z#Specific [place] 1.010 Z#Ketones Urine - Z#Bili,Urine - Z#Glu Urine - Urinalysis With 10/20/2017 [facility] Urine Color YELLOW Yellow 26 Microscopic (315)- - Urine Clarity CLEAR Clear Urine Glucose - Dipstick NEGATIVE mg/dL Negative Urine Bilirubin - Dipstick NEGATIVE Negative Urine Ketone NEGATIVE mg/dL Negative Urine Specific [place] 1.020 N 1.010-1.030 Urine Blood LARGE Abnormal Negative Urine PH 6.0 Low 6.5-7.5 Urine Protein - Dipstick TRACE mg/dL Negative Urine Urobilinogen - Dipstick 0.2 E.U./dL N 0.2-1.0 Urine Nitrite - Dipstick NEGATIVE Negative Urine Leuk Esterase NEGATIVE Negative Urine RBC 10-20 rbc/hpf High 0-2 Urine WBC 0-2 wbc/hpf 0-7 Urine Epithelial Cells FEW /lpf None Seen Urine Bacteria VERY FEW None Seen Urine Amorph Sediment VERY FEW Negative Source: URINE, CLEAN CAT <SEE NOTE> 27 Drugs Of Abuse-Urine 10/20/2017 [facility] Amphetamines ( Urine) Negative Screen 7 (315)- - Barbiturates (Urine) Negative Benzodiazepines (Urine) Negative Cannabinoids (Urine) Negative Cocaine Metabolite (Urine) Negative Methadone (Urine) Negative Opiates (Urine) Negative Urine Cutoffs * 28 Laboratory test 10/20/2017 [facility] Salicylate < 1.7 mg /dL Low 2.8-20.0 29 finding (315)- - Laboratory test 10/12/2017 [facility] Salicylate < 1.7 mg /dL Low 2.8-20.0 30, 31 finding (315)- - Urinalysis With 10/12/2017 [facility] Urine Color YELLOW Yellow Microscopic (315)- - Urine Clarity CLEAR Clear Urine Glucose - Dipstick NEGATIVE mg/dL Negative Urine Bilirubin - Dipstick NEGATIVE Negative Urine Ketone NEGATIVE mg/dL Negative Urine Specific [place] <=1.005 Low 1.010-1.030 Urine Blood LARGE Abnormal Negative Urine PH 6.0 Low 6.5-7.5 Urine Protein - Dipstick TRACE mg/dL Negative Urine Urobilinogen - Dipstick 0.2 E.U./dL N 0.2-1.0 Urine Nitrite - Dipstick NEGATIVE Negative Urine Leuk Esterase NEGATIVE Negative Urine RBC 5-10 rbc/hpf High 0-2 Urine WBC NONE SEEN wbc/hpf 0-7 Urine Epithelial Cells FEW /lpf None Seen Urine Amorph Sediment VERY FEW Negative Source: URINE, CLEAN CAT <SEE NOTE> 32 Drugs Of Abuse-Urine 10/12/2017 [facility] Amphetamines ( Urine) Negative Screen 7 (315)- - Barbiturates (Urine) Negative Benzodiazepines (Urine) Negative Cannabinoids (Urine) Negative Cocaine Metabolite (Urine) Negative Methadone (Urine) Negative Opiates (Urine) Negative Urine Cutoffs * 33 CBS W/Automated 09/20/2017 [facility] White Blood 11.2 K/ uL High 3.1-10.7 34 Diff (315)- - Count Red Blood Count 4.35 M/uL N 3.90-5.40 Hemoglobin 12.6 gm/dL N 11.6-15.8 Hematocrit 38.6 % N 36.0-46.1 Mean Cell Volume 88.7 fl N 80.9-99.0 Mean Corpuscular HGB 29.0 pg N 25.9-32.7 Mean Corpuscular HGB Conc 32.6 g/dL N 30.8-34.3 Platelet Count 249 K/uL N 155-360 Red Cell Distri Width SD 45.6 fl N 3-47 Red Cell Distri Width %CV 14.3 % N 11.7-14.4 Mean Platelet Volume 10.7 fL N 8.9-12.4 Neut% 78.4 % High 40.4-72.8 Lymph % 13.5 % Low 20.0-42.0 [place] % 5.7 % N 4.3-13.2 Eo% 2.1 % N 0.0-6.6 Bas% 0.3 % N 0.0-1.1 Neut# 8.80 K/uL High 1.8-7.0 Lymph # 1.51 K/uL N 1.0-4.0 [place] # 0.64 K/uL N 0.3-0.9 Eos # 0.23 K/uL N 0.0-0.5 Baso # 0.03 K/uL N 0.0-0.1 Slide Review 09/20/2017 [facility] Slide Review (SEE NOTE ) 35 (315)- - Comprehensive 09/20/2017 [facility] Glucose 100 mg/dL N 74-106 Metabolic Panel (315)- - BUN 10 mg/dL N 7-18 Creatinine 0.6 mg/dL N 0.6-1.3 Glom Filtration Rate, Estimate >60 mL/min >60 If >60 mL/min >60 36 BUN/Creat 16.6 ratio Sodium 143 mmol/L N 136-145 Potassium 3.9 mmol/L N 3.5-5.1 Chloride 113 mmol/L High 98-107 Carbon Dioxide 24 mmol/L N 21-32 Anion Gap 6 mEq/L Low 8-16 Calcium 8.9 mg/dL N 8.5-10.1 Total Protein 7.0 g/dL N 6.4-8.2 Albumin 3.2 g/dL Low 3.4-5.0 Globulin 3.8 g/dL N 1.9-4.3 Alb/Glob 0.8 ratio Bilirubin,Total 0.3 mg/dL N 0.2-1.0 Sgot/Ast 18 U/L N 15-37 SGPT/Alt 36 U/L N 12-78 Alkaline Phosphatase 108 U/L N 45-117 Laboratory test 09/20/2017 [facility] Troponin-I < 0.015 37 finding (315)- - ng/mL CBC with Auto 09/05/2017 [facility] WBC 11.3 10*3/uL High (4.1-11 38 Diff-fcmg .0) RBC 4.57 10*6/uL (4.00-5.40) HGB 13.1 g/dL (12.0-16.0) HCT 40.9 % (36.0-47.0) MCV 89.4 fL (80.0-95.0) MCH 28.6 pg (27.0-32.0) MCHC 32.0 g/dL (32.0-36.0) RDW 14.7 % High (10.5-14.5) MPV 10.1 fL (7.1-10.7) PLT 265 10*3/uL (150-450) Neut % 73.2 % (35.0-75.0) Lymph % 19.3 % (16.0-52.0) [place] % 5.2 % (0.0-8.0) Eos % 1.7 % (0.0-5.0) Baso % 0.6 % (0.0-4.0) Neut # 8.2 10*3/uL High (1.8-7.7) Lymph # 2.2 10*3/uL (1.2-4.8) [place] # 0.6 10*3/uL (0.0-0.8) Eos # 0.2 10*3/uL (0.0-0.5) Baso # 0.1 10*3/uL (0.0-0.2) 39 PLT Count 265 K/ul 140-400 PLT 265 10*3/uL (150-450) Comprehensive Met Panel-[facility] [place] 09/05/2017 [facility] Sodium 139 mmol/L (136- 145) Potassium 4.6 mmol/L (3.6-5.2) Chloride 105 mmol/L (100-108) Co2 26 mmol/L (22-31) Anion Gap 8 mmol/L (7-16) Urea Nitrogen 10 mg/dL (7-24) Creatinine 0.66 mg/dL (0.60-1.00) BUN/Creat Ratio 15.2 RATIO (10.0-20.0) Glucose 84 mg/dL (70-99) Calcium 9.2 mg/dL (8.4-10.2) Total Protein 7.1 g/dL (6.4-8.2) Albumin 3.7 g/dL (3.5-4.6) Globulin 3.4 g/dL (2.7-4.3) Alb/Glob Ratio 1.1 RATIO Alkaline Phosphatase 118 U/L High (45-117) Bilirubin,Total 0.6 mg/dL (0.0-1.0) Ast (Sgot) 19 U/L (11-39) Alt (SGPT) 39 U/L (12-78) GFR >60 ml/min/1.73m2 (>59) GFR ( Amer) >60 ml/min/1.73m2 (>59) GFR Interpretation (SEE NOTE) 40 Laboratory test finding 09/05/2017 [facility] TSH 1.770 mIU/L (0.360-4.170 ) 41 Vitamin B12 645 pg/mL (193-986) 42 Vitamin D 25 Hydroxy 50 ng/mL (31-100) 43 Lipid Panel-RL 09/05/2017 [facility] Cholesterol @ 153 mg/dL (0-200) Triglyceride @ 65 mg/dL (30-200) HDL Cholesterol @ 59 mg/dL (>40) 44 Chol/HDL Ratio 2.6 RATIO 45 LDL Chol (Calc) 81 mg/dL (<130) 46 Laboratory test 09/05/2017 [facility] [place] 0.65 mmol/L (0.60-1.50) 47 finding Basic Metabolic 07/11/2017 [facility] Glucose 84 mg/dL N 74-106 48 Panel (315)- - BUN 12 mg/dL N 7-18 Creatinine 0.6 mg/dL N 0.6-1.3 Glom Filtration Rate, Estimate >60 mL/min >60 If >60 mL/min >60 49 BUN/Creat 20.0 ratio Sodium 142 mmol/L N 136-145 Potassium 4.2 mmol/L N 3.5-5.1 Chloride 112 mmol/L High 98-107 Carbon Dioxide 25 mmol/L N 21-32 Anion Gap 5 mEq/L Low 8-16 Calcium 8.9 mg/dL N 8.5-10.1 Slide Review 07/10/2017 [facility] Slide Review . 50 (315)- - CBS W/Automated 07/10/2017 [facility] White Blood 16.0 K/ uL High 3.1-10.7 Diff (315)- - Count Red Blood Count 4.67 M/uL N 3.90-5.40 Hemoglobin 13.4 gm/dL N 11.6-15.8 Hematocrit 42.1 % N 36.0-46.1 Mean Cell Volume 90.1 fl N 80.9-99.0 Mean Corpuscular HGB 28.7 pg N 25.9-32.7 Mean Corpuscular HGB Conc 31.8 g/dL N 30.8-34.3 Platelet Count 254 K/uL N 155-360 Red Cell Distri Width SD 47.2 fl High 3-47 Red Cell Distri Width %CV 14.6 % High 11.7-14.4 Mean Platelet Volume 11.2 fL N 8.9-12.4 Neut% 78.1 % High 40.4-72.8 Lymph % 14.0 % Low 20.0-42.0 [place] % 6.0 % N 4.3-13.2 Eo% 1.6 % N 0.0-6.6 Bas% 0.3 % N 0.0-1.1 Neut# 12.48 K/uL High 1.8-7.0 Lymph # 2.23 K/uL N 1.0-4.0 [place] # 0.96 K/uL High 0.3-0.9 Eos # 0.25 K/uL N 0.0-0.5 Baso # 0.05 K/uL N 0.0-0.1 Basic Metabolic Panel 07/10/2017 [facility] Glucose 86 mg /dL N 74-106 (315)- - BUN 10 mg/dL N 7-18 Creatinine 0.5 mg/dL Low 0.6-1.3 Glom Filtration Rate, Estimate >60 mL/min >60 If >60 mL/min >60 51 BUN/Creat 20.0 ratio Sodium 141 mmol/L N 136-145 Potassium 4.1 mmol/L N 3.5-5.1 Chloride 112 mmol/L High 98-107 Carbon Dioxide 25 mmol/L N 21-32 Anion Gap 4 mEq/L Low 8-16 Calcium 9.2 mg/dL N 8.5-10.1 Laboratory 07/07/2017 [facility] Lamotrigine 1.6 ug/mL Low 2.0-20.0 52, 53 test finding (315)- - (Lamictal), Serum Drugs Of 07/07/2017 [facility] Amphetamines Negative Abuse-Urine (315)- - (Urine) Screen 7 Barbiturates (Urine) Negative Benzodiazepines (Urine) Negative Cannabinoids (Urine) Negative Cocaine Metabolite (Urine) Negative Methadone (Urine) Negative Opiates (Urine) Negative Urine Cutoffs * 54 Laboratory 07/07/2017 [facility] [place] 0.69 N 0.60- 1.20 test finding (315)- - mmol/L Laboratory 07/02/2017 [facility] Lamotrigine 1.9 ug/mL Low 2.0-20.0 55, 56 test finding (315)- - (Lamictal), Serum Laboratory 07/02/2017 [facility] [place] 0.67 N 0.60- 1.20 57 test finding (315)- - mmol/L Slide Review 07/02/2017 [facility] Slide Review (SEE NOTE ) 58 (315)- - CBS 07/02/2017 [facility] White Blood 12.4 K/uL High 3.1-10.7 W/Automated (315)- - Count Diff Red Blood Count 4.30 M/uL N 3.90-5.40 Hemoglobin 12.6 gm/dL N 11.6-15.8 Hematocrit 38.3 % N 36.0-46.1 Mean Cell Volume 89.1 fl N 80.9-99.0 Mean Corpuscular HGB 29.3 pg N 25.9-32.7 Mean Corpuscular HGB Conc 32.9 g/dL N 30.8-34.3 Platelet Count 235 K/uL N 155-360 Red Cell Distri Width SD 45.6 fl N 3-47 Red Cell Distri Width %CV 14.3 % N 11.7-14.4 Mean Platelet Volume 10.8 fL N 8.9-12.4 Neut% 82.8 % High 40.4-72.8 Lymph % 10.5 % Low 20.0-42.0 [place] % 5.7 % N 4.3-13.2 Eo% 0.7 % N 0.0-6.6 Bas% 0.3 % N 0.0-1.1 Neut# 10.25 K/uL High 1.8-7.0 Lymph # 1.30 K/uL N 1.0-4.0 [place] # 0.71 K/uL N 0.3-0.9 Eos # 0.09 K/uL N 0.0-0.5 Baso # 0.04 K/uL N 0.0-0.1 Urinalysis With 07/02/2017 [facility] Urine Color YELLOW Yellow Microscopic (315)- - Urine Clarity CLEAR Clear Urine Glucose - Dipstick NEGATIVE mg/dL Negative Urine Bilirubin - Dipstick NEGATIVE Negative Urine Ketone NEGATIVE mg/dL Negative Urine Specific [place] 1.010 N 1.010-1.030 Urine Blood MODERATE Abnormal Negative Urine PH 7.0 N 6.5-7.5 Urine Protein - Dipstick NEGATIVE mg/dL Negative Urine Urobilinogen - Dipstick 0.2 E.U./dL N 0.2-1.0 Urine Nitrite - Dipstick NEGATIVE Negative Urine Leuk Esterase NEGATIVE Negative Urine RBC 20-30 rbc/hpf High 0-2 Urine WBC 0-2 wbc/hpf 0-7 Urine Epithelial Cells VERY FEW /lpf None Seen Urine Bacteria VERY FEW None Seen Source: URINE, CLEAN CAT <SEE NOTE> 59 Drugs Of Abuse-Urine 07/02/2017 [facility] Amphetamines ( Urine) Negative Screen 7 (315)- - Barbiturates (Urine) Negative Benzodiazepines (Urine) Negative Cannabinoids (Urine) Negative Cocaine Metabolite (Urine) Negative Methadone (Urine) Negative Opiates (Urine) Negative Urine Cutoffs * 60 Laboratory test 07/02/2017 [facility] Salicylate < 1.7 Low 2.8-20.0 61 finding (315)- - mg/dL Laboratory test 07/02/2017 [facility] TSH Reflex FT4 2.01 N 0.30-4.20 finding (315)- - and/or FT3 uIU/mL HCG,Serum (Qualitative) NEGATIVE (Negative) 62 Comprehensive Metabolic 07/02/2017 [facility] Glucose 93 mg/dL N 74-106 Panel (315)- - BUN 11 mg/dL N 7-18 Creatinine 0.7 mg/dL N 0.6-1.3 Glom Filtration Rate, Estimate >60 mL/min >60 If >60 mL/min >60 63 BUN/Creat 15.7 ratio Sodium 138 mmol/L N 136-145 Potassium 4.1 mmol/L N 3.5-5.1 Chloride 107 mmol/L N 98-107 Carbon Dioxide 25 mmol/L N 21-32 Anion Gap 6 mEq/L Low 8-16 Calcium 9.0 mg/dL N 8.5-10.1 Total Protein 7.2 g/dL N 6.4-8.2 Albumin 3.6 g/dL N 3.4-5.0 Globulin 3.6 g/dL N 1.9-4.3 Alb/Glob 1.0 ratio Bilirubin,Total 0.4 mg/dL N 0.2-1.0 Sgot/Ast 15 U/L N 15-37 SGPT/Alt 32 U/L N 12-78 Alkaline Phosphatase 113 U/L N 45-117 Laboratory test 07/02/2017 [facility] Acetaminophen < 2.0 ug/mL Low 10.0-30.0 64 finding (315)- - Ethyl Alcohol < 3.0 mg/dL 1 Urinalysis By Machine (In 06/12/2017 Done In [facility] Z#Color yellow Ho Z#Appearance cloudy Urine,Leukocytes - Nitrite - Urobilinogen - Urine,Protein +- Z#PH Urine 7.0 Z#Blood, Urine 1+ Z#Specific [place] 1.015 Z#Ketones Urine - Z#Bili,Urine - Z#Glu Urine - Laboratory test 06/12/2017 [facility] Urine HCG <pending> finding LDL Cholesterol 05/04/2017 [facility] Cholesterol 163 mg/ dL <200 65, 66 Profile (315)- - Triglycerides 81 mg/dL <150 67 HDL Cholesterol 58 mg/dL >40 68 LDL-Cholesterol 89 mg/dL < 100 69 Laboratory test 05/04/2017 [facility] Treponema Negative Negative 70 finding (315)- - Antibody [place] Laboratory test 04/04/2017 [facility] Urine Culture <pending> finding Laboratory test 03/15/2017 Done In [facility] HCG (Urine Negative finding Yes/No)RL Laboratory test 12/04/2016 [facility] Vit D25oh 56 ng/mL (31-100) 71, 72 finding Vitamin B12 657 pg/mL (193-986) 73 Comprehensive Metabolic-RL 12/04/2016 [facility] Sodium 144 mmol/L (136-145 ) Potassium 4.6 mmol/L (3.6-5.2) Chloride 110 mmol/L High (100-108) Co2 30 mmol/L (22-31) Anion Gap 4 mmol/L Low (7-16) Urea Nitrogen 12 mg/dL (7-24) Creatinine 0.59 mg/dL Low (0.60-1.00) BUN/Creat Ratio 20.3 RATIO High (10.0-20.0) Glucose 66 mg/dL Low (70-99) Calcium 9.5 mg/dL (8.4-10.2) Total Protein 7.3 g/dL (6.4-8.2) Albumin 4.1 g/dL (3.5-4.6) Globulin 3.2 g/dL (2.7-4.3) Alb/Glob Ratio 1.3 RATIO Alkaline Phosphatase 155 U/L High (45-117) Bilirubin,Total 0.5 mg/dL (0.0-1.0) Ast (Sgot) 18 U/L (11-39) Alt (SGPT) 61 U/L (12-78) GFR >60 ml/min/1.73m2 (>59) GFR ( Amer) >60 ml/min/1.73m2 (>59) GFR Interpretation (SEE NOTE) 74 Lipid 12/04/2016 [facility] Cholesterol @ 137 mg/dL (0-200) Triglyceride @ 51 mg/dL (30-200) HDL Cholesterol @ 56 mg/dL (>40) 75 Chol/HDL Ratio 2.4 RATIO 76 LDL Chol (Calc) 71 mg/dL (<130) 77 Laboratory test finding 12/04/2016 [facility] TSH 2.300 mIU/L (0.360-4.170 ) 78 CBC With Auto Diff 12/04/2016 [facility] WBC 9.4 10*3/uL (4.1-11.0) RBC 4.51 10*6/uL (4.00-5.40) HGB 12.5 g/dL (12.0-16.0) HCT 39.7 % (36.0-47.0) MCV 88.1 fL (80.0-95.0) MCH 27.7 pg (27.0-32.0) MCHC 31.4 g/dL Low (32.0-36.0) RDW 15.8 % High (10.5-14.5) PLT 264 10*3/uL (150-450) Neut % 67.5 % (35.0-75.0) Lymph % 22.0 % (16.0-52.0) [place] % 7.1 % (0.0-8.0) Eos % 2.5 % (0.0-5.0) Baso % 0.9 % (0.0-4.0) Neut # 6.4 10*3/uL (1.8-7.7) Lymph # 2.1 10*3/uL (1.2-4.8) [place] # 0.7 10*3/uL (0.0-0.8) Eos # 0.2 10*3/uL (0.0-0.5) Baso # 0.1 10*3/uL (0.0-0.2) 79 Urine HCG 08/31/2016 Done In [facility] Z#Misc NEGATIVE Laboratory test finding 08/26/2016 [facility] Urine HCG NEGATIVE (Neg) 80 Urinalysis 08/26/2016 [facility] Color YELLOW Appearance CLEAR Spec Grav Urine 1.006 (1.003-1.030) PH Urine 7.0 (5.0-7.5) Leuk Esterase 1+ Abnormal (Neg) Nitrite Urine NEGATIVE (Neg) Protein Urine NEGATIVE (Neg) Glucose Urine NEGATIVE (Neg) Ketone Urine NEGATIVE (Neg) Urobilinogen 0.2 mg/dL (0-1.0) Bilirubin Urine NEGATIVE (Neg) Blood/HGB Urine 1+ Abnormal (Neg) Epithelial Cells NEGATIVE [HPF] (Neg) Hyaline Casts 0.3 [LPF] (0-5) Bacteria NEGATIVE [HPF] (Neg) Urine WBC 2.1 [HPF] (0-8) Urine RBC 6.8 [HPF] High (0-3) 81 CBC With Auto Diff 08/21/2016 [facility] WBC 9.1 10*3/uL (4.1-11.0) [phone] RBC 4.27 10*6/uL (4.00-5.40) HGB 12.1 g/dL (12.0-16.0) HCT 36.8 % (36.0-47.0) 82 MCV 86.0 fL (80.0-95.0) MCH 28.2 pg (27.0-32.0) MCHC 32.8 g/dL (32.0-36.0) RDW 14.6 % High (10.5-14.5) PLT 203 10*3/uL (150-450) MPV 10.0 fL (7.1-10.7) Neut % 72.8 % (35.0-75.0) Lymph % 17.9 % (16.0-52.0) [place] % 6.0 % (0.0-8.0) Eos % 2.7 % (0.0-5.0) Baso % 0.6 % (0.0-4.0) Neut # 6.6 10*3/uL (1.8-7.7) Lymph # 1.6 10*3/uL (1.2-4.8) [place] # 0.5 10*3/uL (0.0-0.8) Eos # 0.2 10*3/uL (0.0-0.5) Baso # 0.1 10*3/uL (0.0-0.2) Lipid Panel 08/21/2016 [facility] [place] Cholesterol @ 120 mg/dL (0-200) [phone] Triglyceride @ 34 mg/dL (30-200) HDL Cholesterol @ 50 mg/dL (>40) 83 Chol/HDL Ratio 2.4 RATIO 84 LDL Chol (Calc) 63 mg/dL (<130) 85 Laboratory test 08/21/2016 [facility] [place] [facility] 25 Hydroxy Vit D 66 ng/mL (31- 100) 86 finding [phone] @ Iron Panel 08/21/2016 [facility] Iron,Total @ 48 g/dL (35-150) [phone] Uibc @ 198 g/dL (130-375) Tibc @ 246 g/dL Low (250-450) % Saturation 20 % (12-50) Laboratory test finding 08/21/2016 [facility] [place] Vitamin D, 25 Oh <pending> [phone] TSH,Ultrasensitive @ 1.004 mIU/L (0.360-4.170) 87 Laboratory test 08/21/2016 [facility] Vitamin B12 @ 559 pg/mL (193-986 ) finding [phone] Ferritin @ 96 ng/mL (8-252) CMP 08/21/2016 [facility] Sodium 142 mmol/L (136-145) [phone] Potassium 4.3 mmol/L (3.6-5.2) Chloride 108 mmol/L (100-108) Co2 27 mmol/L (22-31) Anion Gap 7 mmol/L (7-16) Urea Nitrogen 11 mg/dL (7-24) Creatinine 0.60 mg/dL (0.60-1.00) BUN/Creat Ratio 18.3 RATIO (10.0-20.0) Glucose 96 mg/dL (70-99) Calcium 9.6 mg/dL (8.4-10.2) Total Protein 6.8 g/dL (6.4-8.2) Albumin 4.0 g/dL (3.5-4.6) Globulin 2.8 g/dL (2.7-4.3) Alb/Glob Ratio 1.4 RATIO Alkaline Phosphatase 151 U/L High (45-117) Bilirubin,Total 0.5 mg/dL (0.0-1.0) Ast (Sgot) 23 U/L (11-39) Alt (SGPT) 59 U/L (12-78) GFR >60 ml/min/1.73m2 (>59) GFR ( Amer) >60 ml/min/1.73m2 (>59) GFR Interpretation <SEE NOTE> 88 Laboratory test 06/15/2016 Done In [facility] HCG (Urine Negative finding Yes/No)RL Laboratory test 05/31/2016 [facility] TSH <pending> finding Lamotrigine/Lamictal-RL <pending> [place] -RL <pending> Prolactin <pending> Lipid Panel 05/31/2016 [facility] Cholesterol Total <pending> Z#Cholesterol/HDL Ratio <pending> HDL Cholesterol- <pending> Z#LDL, Low Density Lipoprotein <pending> Triglycerides <pending> Z#VLDL Cholesterol <pending> CMP, Comp Metabolic Panel 05/31/2016 [facility] Albumin <pending> Alt (SGPT) Liver Enzyme <pending> Calcium <pending> Co2 Carbon Dioxide <pending> Chloride <pending> Creatinine, Serum <pending> Glucose <pending> Alkaline Phosphatase <pending> Potassium <pending> Sodium <pending> Ast (Sgot) Liver Enzyme <pending> BUN, Urea Nitrogen <pending> Total Protein <pending> Bilirubin,Total <pending> A/G Ratio <pending> Globulin-RL <pending> Z#BUN/Creatinine Ratio <pending> CBC With Auto Diff 05/31/2016 [facility] White Blood Count-RL < pending> Z#Red Blood Count <pending> Hemoglobin <pending> Hematocrit <pending> Z#MCV (Corpuscular Volume) <pending> Z#MCH (Corpuscular Hemoglobin) <pending> Z#CHC (Corpuscular Hemog Conc) <pending> Z#RDW <pending> Platelet Count <pending> Z#MPV <pending> Z#Neutrophils <pending> Z#Bands <pending> Z#Lymphocytes <pending> Z#Monocytes <pending> Z#Eosinophils <pending> Z#Basophils <pending> Z#Absolute Neutrophils <pending> Z#Absolute Lymphocytes <pending> Z#Absolute Monocytes <pending> Z#Absolute Eosinophils <pending> Z#Absolute Basophils <pending> Z#Segmented Neutrophils <pending> Z#Differential For CBC <pending> CBC With Auto Diff 03/09/2015 [facility] White Blood Count-RL 11.6 Z#Red Blood Count 4.50 Hemoglobin 12.3 Hematocrit 39.0 Z#MCV (Corpuscular Volume) 86.7 Z#MCH (Corpuscular Hemoglobin) 27.4 Z#CHC (Corpuscular Hemog Conc) 31.6 Z#RDW 14.3 Platelet Count 277 Z#Neutrophils 76 Z#Lymphocytes 16 Z#Monocytes 6 Z#Eosinophils 2 Z#Basophils 0 Z#Absolute Neutrophils 8.70 Z#Absolute Lymphocytes 1.90 Z#Absolute Monocytes 0.70 Z#Absolute Eosinophils 0.20 Z#Absolute Basophils 0.00 CMP, Comp Metabolic Panel 03/09/2015 [facility] Albumin 4.3 Alt (SGPT) Liver Enzyme 64 Calcium 10.5 Co2 Carbon Dioxide 26 Chloride 103 Creatinine, Serum 0.7 Glucose 97 Alkaline Phosphatase 133 Potassium 4.3 Sodium 138 Ast (Sgot) Liver Enzyme 28 BUN, Urea Nitrogen 12 Total Protein 6.8 Bilirubin,Total 0.3 A/G Ratio 1.7 Z#BUN/Creatinine Ratio 17 Lipid Panel 03/09/2015 [facility] Cholesterol Total 148 HDL Cholesterol- 47 Z#LDL, Low Density Lipoprotein 90 Triglycerides 55 Z#VLDL Cholesterol 11 Laboratory test finding 03/09/2015 [facility] Vitamin D, 25 Oh 40 Lamotrigine/Lamictal-RL <2.0 Urinalysis 08/12/2014 [facility] General Color YELLOW Appearance CLEAR Spec Grav Urine 1.007 (1.003-1.030) PH Urine 6.5 (5.0-7.5) Leuk Esterase NEGATIVE (Neg) Nitrite Urine NEGATIVE (Neg) Protein Urine NEGATIVE (Neg) Glucose Urine NEGATIVE (Neg) Ketone Urine NEGATIVE (Neg) Urobilinogen 0.2 mg/dL (0-1.0) Bilirubin Urine NEGATIVE (Neg) Blood/HGB Urine 1+ Abnormal (Neg) Urine Mocro Only 08/12/2014 [facility] Urine WBC 0-2 [HPF] (0-5) Urine RBC * 3-5 [HPF] (0-2) Epithelial Cells 1+ [HPF] CBC W/Diff 08/12/2014 [facility] WBC 13.1 10*3/uL High (4.1-11.0) RBC 4.00 10*6/uL (4.00-5.40) HGB 11.1 g/dL Low (12.0-16.0) HCT 34.9 % Low (36.0-47.0) MCV 87.2 fL (80.0-95.0) MCH 27.8 pg (27.0-32.0) MCHC 31.9 g/dL Low (32.0-36.0) RDW 14.4 % (10.5-14.5) PLT 280 10*3/uL (150-450) MPV 10.4 fL (7.1-10.7) Neut % 78.1 % High (35.0-75.0) Lymph % 15.1 % Low (16.0-52.0) [place] % 4.6 % (0.0-8.0) Eos % 1.3 % (0.0-5.0) Baso % 0.9 % (0.0-4.0) Neut # 10.2 10*3/uL High (1.8-7.7) Lymph # 2.0 10*3/uL (1.2-4.8) [place] # 0.6 10*3/uL (0.0-0.8) Eos # 0.2 10*3/uL (0.0-0.5) Baso # 0.1 10*3/uL (0.0-0.2) CMP 08/12/2014 [facility] General Sodium 139 mmol/L (136-145) Potassium 4.3 mmol/L (3.6-5.2) Chloride 105 mmol/L (100-108) Co2 27 mmol/L (22-31) Anion Gap 7 mmol/L (7-16) Urea Nitrogen 11 mg/dL (7-24) Creatinine 0.7 mg/dL (0.6-1.0) BUN/Creat Ratio 15.7 RATIO (10.0-20.0) Glucose 79 mg/dL (70-99) Calcium 9.1 mg/dL (8.4-10.2) Total Protein 6.7 g/dL (6.4-8.2) Albumin 2.9 g/dL Low (3.5-4.6) Globulin 3.8 g/dL (2.7-4.3) Alb/Glob Ratio 0.8 RATIO Alkaline Phosphatase 115 U/L (45-117) Bilirubin,Total 0.3 mg/dL (0.0-1.0) Ast (Sgot) 17 U/L (11-39) Alt (SGPT) 27 U/L (12-78) GFR >90 ml/min/1.73m2 (>59) GFR ( Amer) >90 ml/min/1.73m2 (>59) GFR Interpretation <SEE NOTE> 89 Laboratory test 08/12/2014 [facility] Troponin I <0.06 ng/mL ( 0.00-0.10) 90 finding CBC With Auto 06/04/2014 [facility] White Blood 16.5 Diff Count-RL Z#Red Blood Count 4.68 Hemoglobin 13.4 Hematocrit 40.2 Z#MCV (Corpuscular Volume) 85.8 Z#MCH (Corpuscular Hemoglobin) 28.5 Z#CHC (Corpuscular Hemog Conc) 33.3 Z#RDW 14.1 Platelet Count 275 Z#Neutrophils 78 Z#Lymphocytes 15 Z#Monocytes 4 Z#Eosinophils 1 Z#Basophils 1 Z#Absolute Neutrophils 13.00 Z#Absolute Lymphocytes 2.50 Z#Absolute Monocytes 0.70 Z#Absolute Eosinophils 0.20 Z#Absolute Basophils 0.10 CMP, Comp Metabolic Panel 06/04/2014 [facility] Albumin 3.8 Alt (SGPT) Liver Enzyme 36 Calcium 9.9 Co2 Carbon Dioxide 20 Chloride 105 Creatinine, Serum 0.6 Glucose 90 Alkaline Phosphatase 129 Potassium 5.1 Sodium 138 Ast (Sgot) Liver Enzyme 21 BUN, Urea Nitrogen 10 Total Protein 6.7 Bilirubin,Total 0.4 A/G Ratio 1.3 Z#BUN/Creatinine Ratio 17 Laboratory test finding 06/04/2014 [facility] TSH 4.460 Vitamin D, 25 Oh 40 [place] -RL 1.13 Lipid Panel 06/04/2014 [facility] Cholesterol Total 172 HDL Cholesterol- 61 Z#LDL, Low Density Lipoprotein 86 Triglycerides 127 Z#VLDL Cholesterol 25 Laboratory test 06/04/2014 [facility] Lamotrigine/Lamictal-RL <2.0 finding Laboratory test 01/02/2014 [facility] [place] -RL 1.25 finding Lamotrigine/Lamictal-RL <2.0 CMP, Comp Metabolic Panel 01/02/2014 [facility] Albumin 3.8 Alt (SGPT) Liver Enzyme 34 Calcium 10.1 Co2 Carbon Dioxide 24 Chloride 105 Creatinine, Serum 0.7 Glucose 91 Alkaline Phosphatase 119 Potassium 4.3 Sodium 138 Ast (Sgot) Liver Enzyme 18 BUN, Urea Nitrogen 11 Total Protein 6.5 Bilirubin,Total 0.3 A/G Ratio 1.4 Z#BUN/Creatinine Ratio 16 CBC With Auto Diff 01/02/2014 [facility] White Blood Count-RL 15.0 Z#Red Blood Count 4.71 Hemoglobin 13.0 Hematocrit 40.7 Z#MCV (Corpuscular Volume) 86.4 Z#MCH (Corpuscular Hemoglobin) 27.5 Z#CHC (Corpuscular Hemog Conc) 31.8 Z#RDW 14.3 Platelet Count 278 Z#Neutrophils 80 Z#Bands 1 Z#Lymphocytes 16 Z#Monocytes 3 Z#Eosinophils 0.15 Z#Absolute Neutrophils 12.00 Z#Absolute Lymphocytes 2.40 Z#Absolute Monocytes 0.45 CBC With Auto Diff 11/03/2013 [facility] White Blood Count-RL 16.5 Z#Red Blood Count 4.18 Hemoglobin 11.6 Hematocrit 36.0 Z#MCV (Corpuscular Volume) 86.2 Z#MCH (Corpuscular Hemoglobin) 27.9 Z#CHC (Corpuscular Hemog Conc) 32.3 Z#RDW 14.5 Platelet Count 276 Z#Neutrophils 84 Z#Lymphocytes 13 Z#Monocytes 2 Z#Eosinophils 1 Z#Basophils 0 Z#Absolute Neutrophils 14.00 Z#Absolute Lymphocytes 2.10 Z#Absolute Monocytes 0.20 Z#Absolute Eosinophils 0.20 Z#Absolute Basophils 0.00 CMP, Comp Metabolic Panel 11/03/2013 [facility] Albumin 3.8 Alt (SGPT) Liver Enzyme 23 Calcium 9.9 Co2 Carbon Dioxide 23 Chloride 101 Creatinine, Serum 0.6 Glucose 96 Alkaline Phosphatase 120 Potassium 4.5 Sodium 134 Ast (Sgot) Liver Enzyme 13 BUN, Urea Nitrogen 16 Total Protein 6.6 Bilirubin,Total 0.2 A/G Ratio 1.4 Laboratory test finding 11/03/2013 [facility] TSH 3.470 Laboratory test finding 11/03/2013 [facility] Lab [place] -RL 1.03 Lipid Panel 11/03/2013 [facility] Cholesterol Total 154 HDL Cholesterol- 68 Z#LDL, Low Density Lipoprotein 69 Triglycerides 86 Z#VLDL Cholesterol 86 Laboratory test finding 11/03/2013 [facility] Vitamin B12 381 Vitamin D 1,25 Oh-RL 29 CBC With Auto Diff 07/30/2013 [facility] 14.4 10*3/uL High (4.1-11.0) 91 RBC 4.48 10*6/uL (4.00-5.40) HGB 12.8 g/dL (12.0-16.0) HCT 39.2 % (36.0-47.0) MCV 87.4 fL (80.0-95.0) MCH 28.6 pg (27.0-32.0) MCHC 32.7 g/dL (32.0-36.0) RDW 14.6 % High (10.5-14.5) PLT 322 10*3/uL (150-400) MPV 10.7 fL (7.1-10.7) Neut % 77.3 % High (35.0-75.0) Lymph % 15.4 % Low (16.0-52.0) [place] % 5.5 % (0-8.0) Eos % 1.4 % (0-5.0) Baso % 0.4 % (0-4.0) Neut # 11.1 10*3/uL High (1.8-7.7) Lymph # 2.2 10*3/uL (1.2-4.8) [place] # 0.8 10*3/uL (0-0.8) Eos # 0.2 10*3/uL (0-0.5) Baso # 0.1 10*3/uL (0-0.2) 92 Comprehensive Metabolic (CMP) 07/30/2013 [facility] Sodium 137 mmol/L (136- 145) Potassium 4.4 mmol/L (3.6-5.2) Chloride 106 mmol/L (100-108) Co2 26 mmol/L (22-31) Anion Gap 5 mmol/L Low (7-16) Urea Nitrogen 11 mg/dL (7-24) Creatinine 0.9 mg/dL (0.6-1.0) BUN/Creat Ratio 12.2 RATIO (10.0-20.0) Glucose 92 mg/dL (70-99) Calcium 10.0 mg/dL (8.4-10.2) Total Protein 7.0 g/dL (6.4-8.2) Albumin 3.4 g/dL Low (3.5-4.6) Globulin 3.6 g/dL (2.7-4.3) Alb/Glob Ratio 0.9 RATIO Alkaline Phosphatase 133 U/L High (45-117) 93 Bilirubin,Total 0.3 mg/dL (0.0-1.0) Ast (Sgot) 17 U/L (11-39) Alt (SGPT) 40 U/L (12-78) GFR 79 mL/min/{1.73_m2 (>59) GFR ( Amer) >90 mL/min/{1.73_m2 (>59) GFR Interpretation (SEE NOTE) 94 Lipid 07/30/2013 [facility] Cholesterol @ 195 mg/dL (0-200) Triglyceride @ 136 mg/dL (30-200) HDL Cholesterol @ 66 mg/dL (>40) 95 Chol/HDL Ratio 3.0 RATIO 96 LDL Chol (Calc) 102 mg/dL (<130) 97 Laboratory test finding 07/30/2013 [facility] Vitamin B12 462 pg/mL (193- 986) 98 Vit D,25 Hydroxy 33 ng/mL (31-100) 99 Laboratory test 07/30/2013 [facility] [place] 1.55 mmol/L High (0.60-1.50) 100, 101 finding Laboratory test 04/12/2012 [facility] [place] 1.23 mmol/L (0.60-1.50) 102 , 103 finding CBC With Auto Diff 04/12/2012 [facility] WBC 15.9 K/UL High (4.1-11.0) RBC 4.46 M/UL (4.00-5.40) HGB 12.6 GM/DL (12.0-16.0) HCT 39.2 % (36.0-47.0) MCV 88.0 FL (80.0-95.0) MCH 28.2 pg (27.0-32.0) MCHC 32.0 g/dL (32.0-36.0) RDW 14.7 % High (10.5-14.5) PLT 347 K/UL (150-400) MPV 10.2 FL (7.1-10.7) Neut % 79.1 % High (35.0-75.0) Lymph % 13.5 % Low (16.0-52.0) [place] % 5.3 % (0-8.0) Eos % 1.7 % (0-5.0) Baso % 0.4 % (0-4.0) Neut # 12.5 K/UL High (1.8-7.7) Lymph # 2.1 K/UL (1.2-4.8) [place] # 0.8 K/UL (0-0.8) Eos # 0.3 K/UL (0-0.5) Baso # 0.1 K/UL (0-0.2) 104 Comprehensive Metabolic (CMP) 04/12/2012 [facility] Sodium 139 mmol/L (136- 145) Potassium 4.4 mmol/L (3.6-5.2) Chloride 106 mmol/L (100-108) Co2 24 mmol/L (22-31) Anion Gap 9 mmol/L (7-16) Urea Nitrogen 15 mg/dL (7-24) Creatinine 0.5 mg/dL Low (0.6-1.0) BUN/Creat Ratio 30.0 RATIO High (10.0-20.0) Glucose 84 mg/dL (70-99) Calcium 9.3 mg/dL (8.4-10.2) Total Protein 6.8 g/dL (6.4-8.2) Albumin 3.1 g/dL Low (3.5-4.6) Globulin 3.7 g/dL (2.7-4.3) Alb/Glob Ratio 0.8 RATIO Alkaline Phosphatase 140 U/L High (50-136) Bilirubin,Total 0.2 mg/dL (0.0-1.0) Ast (Sgot) 15 U/L (11-39) Alt (SGPT) 35 U/L (25-69) GFR >90 ML/MIN/1.73M2 (>59) GFR ( Amer) >90 ML/MIN/1.73M2 (>59) GFR Interpretation (SEE NOTE) 105 Laboratory test finding 04/12/2012 [facility] TSH 1.520 mIU/L (0.360-4.170 ) 106 Vit D,25 Hydroxy 32 NG/ML (31-100) 107 Laboratory test 03/01/2012 [facility] [place] 1.20 mmol/L (0.60-1.50) finding [phone] Laboratory test 02/22/2012 [facility] [place] 1.63 mmol/L High (0.60- 1.50) 108 finding [phone] TSH,Ultrasensitive @ 2.720 mIU/L (0.360-4.170) Manual Differential 01/10/2012 [facility] RBC Morphology Normal Normal 109 Neut % 70 % (35-75) Band % 2 % (0-11) Lymph % 20 % (16-52) Atyp Lymph % 1 % (0-5) [place] % 4 % (0-8) Eos % 3 % (0-5) Neut # 9.45 K/UL High (1.80-7.70) Band # 0.27 K/UL Lymph # 2.70 K/UL (1.20-4.80) Atyp Lymph # 0.14 K/UL [place] # 0.54 K/UL (0-0.80) Eos # 0.41 K/UL (0-0.50) Large PLT 1+ 110 Laboratory test 01/10/2012 [facility] [place] <pending> [place] [id number] [phone] Laboratory test 01/10/2012 [facility] TSH 4.190 mIU/L High (0.360- 111 finding 4.170) Vitamin B12 496 pg/mL (180-914) 112 Vit D,25 Hydroxy 36 NG/ML 113 Lipid 01/10/2012 [facility] Cholesterol @ 181 mg/dL (0-200) Triglyceride @ 105 mg/dL (30-200) HDL Cholesterol @ 56 mg/dL (>40) 114 Chol/HDL Ratio 3.2 RATIO 115 LDL Chol (Calc) 104 mg/dL (<130) 116 Comprehensive Metabolic (CMP) 01/10/2012 [facility] Sodium 139 mmol/L (136- 145) Potassium 4.4 mmol/L (3.6-5.2) Chloride 104 mmol/L (100-108) Co2 27 mmol/L (22-31) Anion Gap 8 mmol/L (7-16) Urea Nitrogen 9 mg/dL (7-24) Creatinine 0.5 mg/dL Low (0.6-1.0) BUN/Creat Ratio 18.0 RATIO (10.0-20.0) Glucose 87 mg/dL (70-99) Calcium 9.3 mg/dL (8.4-10.2) Total Protein 7.2 g/dL (6.4-8.2) Albumin 3.4 g/dL Low (3.5-4.6) Globulin 3.8 g/dL (2.7-4.3) Alb/Glob Ratio 0.9 RATIO Alkaline Phosphatase 116 U/L (50-136) Bilirubin,Total 0.4 mg/dL (0.0-1.0) Ast (Sgot) 24 U/L (11-39) Alt (SGPT) 48 U/L (25-69) GFR >90 ML/MIN/1.73M2 (>59) GFR ( Amer) >90 ML/MIN/1.73M2 (>59) GFR Interpretation (SEE NOTE) 117 CBC With Auto Diff 01/10/2012 [facility] WBC 13.5 K/UL High (4.1-11.0) RBC 4.69 M/UL (4.00-5.40) HGB 13.2 GM/DL (12.0-16.0) HCT 41.7 % (36.0-47.0) MCV 89.0 FL (80.0-95.0) MCH 28.2 pg (27.0-32.0) MCHC 31.7 g/dL Low (32.0-36.0) RDW 14.5 % (10.5-14.5) PLT 261 K/UL (150-400) MPV 11.1 FL High (7.1-10.7) 118 Laboratory test 01/10/2012 [facility] [place] 0.90 mmol/L (0.60-1.50) finding [phone] Comprehensive 09/15/2011 [facility] Sodium 139 mmol/L (136-145) 119 Metabolic (CMP) Potassium 4.8 mmol/L (3.6-5.2) Chloride 106 mmol/L (100-108) Co2 21 mmol/L Low (22-31) Anion Gap 12 mmol/L (7-16) Urea Nitrogen 12 mg/dL (7-24) Creatinine 0.5 mg/dL Low (0.6-1.0) BUN/Creat Ratio 24.0 RATIO High (10.0-20.0) Glucose 69 mg/dL Low (70-99) Calcium 9.1 mg/dL (8.4-10.2) Total Protein 6.9 g/dL (6.4-8.2) Albumin 3.0 g/dL Low (3.5-4.6) Globulin 3.9 g/dL (2.7-4.3) Alb/Glob Ratio 0.8 RATIO Alkaline Phosphatase 117 U/L (50-136) Bilirubin,Total 0.2 mg/dL (0.0-1.0) Ast (Sgot) 21 U/L (11-39) Alt (SGPT) 32 U/L (25-69) GFR >90 ML/MIN/1.73M2 (>59) GFR ( Amer) >90 ML/MIN/1.73M2 (>59) GFR Interpretation (SEE NOTE) 120 Laboratory test finding 09/15/2011 [facility] Vit D,25 Hydroxy 39 NG/ML 121 Vitamin B12 363 pg/mL (180-914) 122 TSH 4.020 mIU/L (0.360-4.170) 123 [place] 1.13 mmol/L (0.60-1.50) 124 Laboratory test 05/29/2011 [facility] [place] 1.60 mmol/L High (0.60-1.50) 125, 126 finding CBC With Auto Diff 05/29/2011 [facility] WBC 12.3 K/UL High (4.1-11.0) RBC 4.67 M/UL (4.00-5.40) HGB 13.2 GM/DL (12.0-16.0) HCT 40.3 % (36.0-47.0) MCV 86.3 FL (80.0-95.0) MCH 28.2 pg (27.0-32.0) MCHC 32.7 g/dL (32.0-36.0) RDW 14.3 % (10.5-14.5) PLT 335 K/UL (150-400) MPV 10.2 FL (7.1-10.7) Neut % 79.1 % High (35.0-75.0) Lymph % 14.1 % Low (16.0-52.0) [place] % 4.3 % (0-8.0) Eos % 2.0 % (0-5.0) Baso % 0.5 % (0-4.0) Neut # 9.7 K/UL High (1.8-7.7) Lymph # 1.7 K/UL (1.2-4.8) [place] # 0.5 K/UL (0-0.8) Eos # 0.2 K/UL (0-0.5) Baso # 0.1 K/UL (0-0.2) 127 Hepatic Panel (LFT) 05/29/2011 [facility] Total Protein 7.6 g/dL (6.4-8.2) Albumin 3.3 g/dL Low (3.5-4.6) Globulin 4.3 g/dL (2.7-4.3) Alb/Glob Ratio 0.8 RATIO Bilirubin,Total 0.4 mg/dL (0.0-1.0) Bilirubin,Conjugated <0.1 mg/dL (0.0-0.3) Bilirubin,Unconj. NOT CALCULATED mg/dL (0.0-0.7) Alkaline Phosphatase 134 U/L (50-136) Ast (Sgot) 25 U/L (11-39) Alt (SGPT) 44 U/L (25-69) 128 Laboratory test finding 05/29/2011 [facility] TSH 4.376 mIU/L High (0.360- 4.170) 129 Basic (BMP) 05/29/2011 [facility] Sodium 139 mmol/L (136-145) Potassium 4.5 mmol/L (3.6-5.2) Chloride 106 mmol/L (100-108) Co2 24 mmol/L (22-31) Anion Gap 9 mmol/L (7-16) Urea Nitrogen 12 mg/dL (7-24) Creatinine 0.7 mg/dL (0.6-1.0) BUN/Creat Ratio 17.1 RATIO (10.0-20.0) Glucose 96 mg/dL (70-99) Calcium 9.5 mg/dL (8.4-10.2) GFR >90 ML/MIN/1.73M2 (>59) GFR ( Amer) >90 ML/MIN/1.73M2 (>59) GFR Interpretation (SEE NOTE) 130 1 This sample is drawn by:KEYA 2 Unless otherwise specified, testing performed by [facility] [place] [address] 3 NORMAL KIDNEY FUNCTION OR MILD DISEASE - GFR >OR=60 CHRONIC KIDNEY DISEASE - GFR 15 - 59 RENAL FAILURE - GFR <15 Est. GFR calculation based on the MDRD study equation, which assumes a steady state for creatinine. Est. GFR should not be used for medication dosing. Unless otherwise specified, testing performed by [facility] [place] [address] 4 Unless otherwise specified, testing performed by [employer] [facility] [place] [address] 5 A REVIEW OF THE LITERATURE SUGGESTS THE FOLLOWING RANGES FOR THE CLASSIFICATION OF 25-OH VITAMIN D STATUS: VITAMIN D STATUS 25-OH VITAMIN D DEFICIENCY <20 NG/ML INSUFFICIENCY 20-30 NG/ML SUFFICIENCY 31 - 100 NG/ML TOXICITY > 100 NG/ML A PEDIATRIC REFERENCE RANGE HAS NOT BEEN ESTABLISHED USING THIS METHOD. Unless otherwise specified, testing performed by [facility] [address] [place] [id number] 6 Prolactin Reference Range: Males 2.5 - 17.4 ng/mL Females Non- 2.2 - 30.3 ng/mL 8.1 - 347.6 ng/mL Postmenopausal 0.7 - 31.5 ng/mL Unless otherwise specified, testing performed by [facility] [address] [place] [id number] 7 PER NCEP ATP III GUIDELINES: RESULTS LOWER THAN 40 MG/DL ARE SUGGESTIVE OF INCREASED RISK FOR CORONARY ARTERY DISEASE. RESULTS > OR=TO 60 MG/DL ARE CONSIDERED A NEGATIVE RISK FACTOR. 8 INTERPRETATION OF CHOL-HDL RATIO CHD RISK FEMALE MALE VERY HIGH >8.3 >14.3 HIGH 5.6- 8.3 6.7- 14.3 AVERAGE 3.7- 5.6 4.0- 6.7 BELOW AVERAGE 2.5- 3.7 2.7- 4.0 PROTECTED <2.5 <2.7 9 PER NCEP ATP III GUIDELINES: OPTIMAL < 100 NEAR OPTIMAL 100 - 129 BORDERLINE HIGH 130 - 159 HIGH 160 - 189 VERY HIGH > 189 Unless otherwise specified, testing performed by [facility] [address] [place] [id number] 10 (NOTE) <5.7% Average risk of diabetes(ADA) 5.7-6.4% Increased risk of diabetes(ADA) >/=6.5% Diagnostic for diabetes(ADA) 11 This sample is drawn by:keya 12 PER NCEP ATP III GUIDELINES: RESULTS LOWER THAN 40 MG/DL ARE SUGGESTIVE OF INCREASED RISK FOR CORONARY ARTERY DISEASE. RESULTS > OR=TO 60 MG/DL ARE CONSIDERED A NEGATIVE RISK FACTOR. 13 INTERPRETATION OF CHOL-HDL RATIO CHD RISK FEMALE MALE VERY HIGH >8.3 >14.3 HIGH 5.6- 8.3 6.7- 14.3 AVERAGE 3.7- 5.6 4.0- 6.7 BELOW AVERAGE 2.5- 3.7 2.7- 4.0 PROTECTED <2.5 <2.7 14 PER NCEP ATP III GUIDELINES: OPTIMAL < 100 NEAR OPTIMAL 100 - 129 BORDERLINE HIGH 130 - 159 HIGH 160 - 189 VERY HIGH > 189 Unless otherwise specified, testing performed by [employer] [facility] [place] [address] 15 Unless otherwise specified, testing performed by [employer] [facility] [place] [address] 16 Unless otherwise specified, testing performed by [employer] [facility] [place] [address] 17 A REVIEW OF THE LITERATURE SUGGESTS THE FOLLOWING RANGES FOR THE CLASSIFICATION OF 25-OH VITAMIN D STATUS: VITAMIN D STATUS 25-OH VITAMIN D DEFICIENCY <20 NG/ML INSUFFICIENCY 20-30 NG/ML SUFFICIENCY 31 - 100 NG/ML TOXICITY > 100 NG/ML A PEDIATRIC REFERENCE RANGE HAS NOT BEEN ESTABLISHED USING THIS METHOD. Unless otherwise specified, testing performed by [facility] [place] [address] 18 Prolactin Reference Range: Males 2.5 - 17.4 ng/mL Females Non- 2.2 - 30.3 ng/mL 8.1 - 347.6 ng/mL Postmenopausal 0.7 - 31.5 ng/mL Unless otherwise specified, testing performed by [employer] [employer] [address] [place] [address] 19 NORMAL KIDNEY FUNCTION OR MILD DISEASE - GFR >OR=60 CHRONIC KIDNEY DISEASE - GFR 15 - 59 RENAL FAILURE - GFR <15 Est. GFR calculation based on the MDRD study equation, which assumes a steady state for creatinine. Est. GFR should not be used for medication dosing. Unless otherwise specified, testing performed by [facility] [place] [address] 20 Unless otherwise specified, testing performed by [employer] [facility] [place] [address] 21 This sample is drawn by:laura 22 NORMAL KIDNEY FUNCTION OR MILD DISEASE - GFR >OR=60 CHRONIC KIDNEY DISEASE - GFR 15 - 59 RENAL FAILURE - GFR <15 Est. GFR calculation based on the MDRD study equation, which assumes a steady state for creatinine. Est. GFR should not be used for medication dosing. Unless otherwise specified, testing performed by [facility] [place] [address] 23 Unless otherwise specified, testing performed by [employer] [facility] [place] [address] 24 A REVIEW OF THE LITERATURE SUGGESTS THE FOLLOWING RANGES FOR THE CLASSIFICATION OF 25-OH VITAMIN D STATUS: VITAMIN D STATUS 25-OH VITAMIN D DEFICIENCY <20 NG/ML INSUFFICIENCY 20-30 NG/ML SUFFICIENCY 31 - 100 NG/ML TOXICITY > 100 NG/ML A PEDIATRIC REFERENCE RANGE HAS NOT BEEN ESTABLISHED USING THIS METHOD. Unless otherwise specified, testing performed by [facility] [place] [address] 25 Prolactin Reference Range: Males 2.5 - 17.4 ng/mL Females Non- 2.2 - 30.3 ng/mL 8.1 - 347.6 ng/mL Postmenopausal 0.7 - 31.5 ng/mL Unless otherwise specified, testing performed by [facility] [place] [address] 26 EVAL 27 URINE, CLEAN CATCH 28 URINE SPECIMENS ARE SCREENED AT THE LISTED CUTOFFS DRUG CLASS INITIAL TEST LEVEL Amphetamines 1000 ng/mL Barbiturates 200 ng/mL Benzodiazepines 200 ng/mL Cannabinoids 50 ng/mL Cocaine Metabolite 300 ng/mL Methadone 300 ng/mL Opiates 300 ng/mL Any PRESUMPTIVE POSITIVE findings are UNCONFIRMED. Confirmatory testing is suggested if findings are unexpected. Please contact laboratory if confirmatory testing is desired. SPECIMENS ARE HELD FOR 72 HOURS. 29 THERAPEUTIC RANGE: 15-30 mg/dL POTENTIAL TOXICITY VARIES WITH TIME FROM INGESTION. PLEASE CONSULT APPROPRIATE NOMOGRAM. 30 MHE, VIOLENT OUTBURST 31 THERAPEUTIC RANGE: 15-30 mg/dL POTENTIAL TOXICITY VARIES WITH TIME FROM INGESTION. PLEASE CONSULT APPROPRIATE NOMOGRAM. 32 URINE, CLEAN CATCH 33 URINE SPECIMENS ARE SCREENED AT THE LISTED CUTOFFS DRUG CLASS INITIAL TEST LEVEL Amphetamines 1000 ng/mL Barbiturates 200 ng/mL Benzodiazepines 200 ng/mL Cannabinoids 50 ng/mL Cocaine Metabolite 300 ng/mL Methadone 300 ng/mL Opiates 300 ng/mL Any PRESUMPTIVE POSITIVE findings are UNCONFIRMED. Confirmatory testing is suggested if findings are unexpected. Please contact laboratory if confirmatory testing is desired. SPECIMENS ARE HELD FOR 72 HOURS. 34 ANXIETY/CP 35 Instrument flagged sample for slide review. Less than 10% Bands seen, no other immature WBC's seen. RBC morphology essentially normal. Platelet estimate=NORMAL 36 Note: Persistent reduction for 3 months or more in an eGFR <60 mL/min/1.73 m2 defines CKD. Patients with eGFR values >/=60 mL/min/1.73 m2 may also have CKD if evidence of persistent proteinuria is present. The original MDRD equation for estimated GFR is not valid for patients less than 18 years of age. Additional information may be found at [email or web address]. 37 0.0 - 0.045 ng/mL: Normal 0.046 - 0.5 ng/mL: Suggestive 0.6 - 1.5 ng/mL: Consistent 38 This sample is drawn by:keya 39 Unless otherwise specified, testing performed by [facility] [place] [address] 40 NORMAL KIDNEY FUNCTION OR MILD DISEASE - GFR >OR=60 CHRONIC KIDNEY DISEASE - GFR 15 - 59 RENAL FAILURE - GFR <15 Est. GFR calculation based on the MDRD study equation, which assumes a steady state for creatinine. Est. GFR should not be used for medication dosing. Unless otherwise specified, testing performed by [facility] [place] [address] 41 Unless otherwise specified, [place] [address] 42 Unless otherwise specified, testing performed by [employer] [facility] [place] [address] 43 A REVIEW OF THE LITERATURE SUGGESTS THE FOLLOWING RANGES FOR THE CLASSIFICATION OF 25-OH VITAMIN D STATUS: VITAMIN D STATUS 25-OH VITAMIN D DEFICIENCY <20 NG/ML INSUFFICIENCY 20-30 NG/ML SUFFICIENCY 31 - 100 NG/ML TOXICITY > 100 NG/ML A PEDIATRIC REFERENCE RANGE HAS NOT BEEN ESTABLISHED USING THIS METHOD. Unless otherwise specified, testing performed by [facility] [place] [address] 44 PER NCEP ATP III GUIDELINES: RESULTS LOWER THAN 40 MG/DL ARE SUGGESTIVE OF INCREASED RISK FOR CORONARY ARTERY DISEASE. RESULTS > OR=TO 60 MG/DL ARE CONSIDERED A NEGATIVE RISK FACTOR. 45 INTERPRETATION OF CHOL-HDL RATIO CHD RISK FEMALE MALE VERY HIGH >8.3 >14.3 HIGH 5.6- 8.3 6.7- 14.3 AVERAGE 3.7- 5.6 4.0- 6.7 BELOW AVERAGE 2.5- 3.7 2.7- 4.0 PROTECTED <2.5 <2.7 46 PER NCEP ATP III GUIDELINES: OPTIMAL < 100 NEAR OPTIMAL 100 - 129 BORDERLINE HIGH 130 - 159 HIGH 160 - 189 VERY HIGH > 189 Unless otherwise specified, testing performed by [facility] [place] [address] 47 Unless otherwise specified, testing performed by [employer] [facility] [place] [address] 48 PERSONALITY DISORDER 49 Note: Persistent reduction for 3 months or more in an eGFR <60 mL/min/1.73 m2 defines CKD. Patients with eGFR values >/=60 mL/min/1.73 m2 may also have CKD if evidence of persistent proteinuria is present. The original MDRD equation for estimated GFR is not valid for patients less than 18 years of age. Additional information may be found at [email or web address]. 50 Instrument flagged sample for slide review. Less than 10% Bands seen, no other immature WBC's seen. RBC morphology essentially normal. Platelet estimate=NORMAL 51 Note: Persistent reduction for 3 months or more in an eGFR <60 mL/min/1.73 m2 defines CKD. Patients with eGFR values >/=60 mL/min/1.73 m2 may also have CKD if evidence of persistent proteinuria is present. The original MDRD equation for estimated GFR is not valid for patients less than 18 years of age. Additional information may be found at [email or web address]. 52 EVAL 53 Detection Limit=1.0 Performed at: [facility] [id number] Jailor: Marbin Treadwell MD, Phone: [phone] 54 URINE SPECIMENS ARE SCREENED AT THE LISTED [facility] INITIAL TEST LEVEL Amphetamines 1000 ng/mL Barbiturates 200 ng/mL Benzodiazepines 200 ng/mL Cannabinoids 50 ng/mL Cocaine Metabolite 300 ng/mL Methadone 300 ng/mL Opiates 300 ng/mL Any PRESUMPTIVE POSITIVE findings are UNCONFIRMED. Confirmatory testing is suggested if findings are unexpected. Please contact laboratory if confirmatory testing is desired. SPECIMENS ARE HELD FOR 72 HOURS. 55 PSYCH SERVICES 56 Detection Limit=1.0 Performed at: [facility] [id number] Jailor: Marbin Treadwell MD, Phone: [phone] 57 [facility] EVAL 58 Instrument flagged sample for slide review. Less than 10% Bands seen, no other immature WBC's seen. RBC morphology essentially normal. Platelet estimate=NORMAL 59 URINE, CLEAN CATCH 60 URINE SPECIMENS ARE SCREENED AT THE LISTED [facility] INITIAL TEST LEVEL Amphetamines 1000 ng/mL Barbiturates 200 ng/mL Benzodiazepines 200 ng/mL Cannabinoids 50 ng/mL Cocaine Metabolite 300 ng/mL Methadone 300 ng/mL Opiates 300 ng/mL Any PRESUMPTIVE POSITIVE findings are UNCONFIRMED. Confirmatory testing is suggested if findings are unexpected. Please contact laboratory if confirmatory testing is desired. SPECIMENS ARE HELD FOR 72 HOURS. 61 THERAPEUTIC RANGE: 15-30 mg/dL POTENTIAL TOXICITY VARIES WITH TIME FROM INGESTION. PLEASE CONSULT APPROPRIATE NOMOGRAM. 62 Method: [employer] QuickVue One-Step Immunoassay 63 Note: Persistent reduction for 3 months or more in an eGFR <60 mL/min/1.73 m2 defines CKD. Patients with eGFR values >/=60 mL/min/1.73 m2 may also have CKD if evidence of persistent proteinuria is present. The original MDRD equation for estimated GFR is not valid for patients less than 18 years of age. Additional information may be found at [email or web address]. 64 Acetaminophen concentration >150 ug/mL at four hours after ingestion and 50.0 ug/mL at twelve hours after ingestion are often associated with toxic reactions. 65 PSYCH SERIVIES 66 Reference Guidelines*: Desirable: ........... < 200 mg/dL Borderline High: ..... 200-239 mg/dL High: ................ >=240 mg/dL * The National Cholesterol Education Program (NCEP) 67 Reference Guidelines*: Normal: ............. < 150 mg/dL Borderline High: .... 150-199 mg/dL High: ............... 200-499 mg/dL Very High: .......... > 500 mg/dL * Source: National Cholesterol Education Program (NCEP) 68 Reference Guidelines*: Low HDL: ..... < 40 mg/dL Normal: ..... 40-60 mg/dL Desirable: ... > 60 mg/dL *The National Cholesterol Education Program(NCEP) 69 Reference Guidelines*: Optimal:........... <100 mg/dL Near Optimal....... 100-129 mg/dL Borderline High.... 130-159 mg/dL High............... 160-189 mg/dL Very High.......... >=190 mg/dL * Source: National Cholesterol Education Program (NCEP) 70 Performed at: [address] [id number] Jailor: Marbin Treadwell MD, Phone: [phone] This sample is drawn by:TG 72 A REVIEW OF THE LITERATURE SUGGESTS THE FOLLOWING RANGES FOR THE CLASSIFICATION OF 25-OH VITAMIN D STATUS: VITAMIN D STATUS 25-OH VITAMIN D DEFICIENCY <20 NG/ML INSUFFICIENCY 20-30 NG/ML SUFFICIENCY 31 - 100 NG/ML TOXICITY > 100 NG/ML A PEDIATRIC REFERENCE RANGE HAS NOT BEEN ESTABLISHED USING THIS METHOD. Unless otherwise specified, testing performed by [facility] [address] [place] [address] [id number] [phone] Unless otherwise specified, testing performed by [facility] [address] [place] [address] [id number] 74 NORMAL KIDNEY FUNCTION OR MILD DISEASE - GFR >OR=60 CHRONIC KIDNEY DISEASE - GFR 15 - 59 RENAL FAILURE - GFR <15 Est. GFR calculation based on the MDRD study equation, which assumes a steady state for creatinine. Est. GFR should not be used for medication dosing. Unless otherwise specified, testing performed by [facility] [address] [place] [address] [phone] 75 PER NCEP ATP III GUIDELINES: RESULTS LOWER THAN 40 MG/DL ARE SUGGESTIVE OF INCREASED RISK FOR CORONARY ARTERY DISEASE. RESULTS > OR=TO 60 MG/DL ARE CONSIDERED A NEGATIVE RISK FACTOR. 76 INTERPRETATION OF CHOL-HDL RATIO CHD RISK FEMALE MALE VERY HIGH >8.3 >14.3 HIGH 5.6- 8.3 6.7- 14.3 AVERAGE 3.7- 5.6 4.0- 6.7 BELOW AVERAGE 2.5- 3.7 2.7- 4.0 PROTECTED <2.5 <2.7 77 PER NCEP ATP III GUIDELINES: OPTIMAL < 100 NEAR OPTIMAL 100 - 129 BORDERLINE HIGH 130 - 159 HIGH 160 - 189 VERY HIGH > 189 Unless otherwise specified, testing performed by [facility] [address] [place] [address] [phone] Unless otherwise specified, testing performed by [facility] [address] [place] [address] [phone] 79 Unless otherwise specified, testing performed by [facility] [address] [place] [address] [phone] 80 Unless otherwise specified, testing performed by [facility] [address] [place] [address] [id number] 81 Unless otherwise specified, testing performed by [facility] [address] [place] [address] [phone] 82 PERFORMED AT [place] [address] 83 PER NCEP ATP III GUIDELINES: RESULTS LOWER THAN 40 MG/DL ARE SUGGESTIVE OF INCREASED RISK FOR CORONARY ARTERY DISEASE. RESULTS > OR=TO 60 MG/DL ARE CONSIDERED A NEGATIVE RISK FACTOR. 84 INTERPRETATION OF CHOL-HDL RATIO CHD RISK FEMALE MALE VERY HIGH >8.3 >14.3 HIGH 5.6- 8.3 6.7- 14.3 AVERAGE 3.7- 5.6 4.0- 6.7 BELOW AVERAGE 2.5- 3.7 2.7- 4.0 PROTECTED <2.5 <2.7 85 PER NCEP ATP III GUIDELINES: OPTIMAL < 100 NEAR OPTIMAL 100 - 129 BORDERLINE HIGH 130 - 159 HIGH 160 - 189 VERY HIGH > 189 86 A REVIEW OF THE LITERATURE SUGGESTS THE FOLLOWING RANGES FOR THE CLASSIFICATION OF 25-OH VITAMIN D STATUS: VITAMIN D STATUS 25-OH VITAMIN D DEFICIENCY <20 NG/ML INSUFFICIENCY 20-30 NG/ML SUFFICIENCY 31 - 100 NG/ML TOXICITY > 100 NG/ML A PEDIATRIC REFERENCE RANGE HAS NOT BEEN ESTABLISHED USING THIS METHOD. 87 PERFORMED AT [place] [address] 88 NORMAL KIDNEY FUNCTION OR MILD DISEASE - GFR >OR=60 CHRONIC KIDNEY DISEASE - GFR 15 - 59 RENAL FAILURE - GFR <15 Est. GFR calculation based on the MDRD study equation, which assumes a steady state for creatinine. Est. GFR should not be used for medication dosing. 89 NORMAL KIDNEY FUNCTION OR MILD DISEASE - GFR >OR=60 CHRONIC KIDNEY DISEASE - GFR 15 - 59 RENAL FAILURE - GFR <15 Est. GFR calculation based on the MDRD study equation, which assumes a steady state for creatinine. Est. GFR should not be used for medication dosing. 90 TROPONIN LEVELS TWO TIMES THE UPPER LIMIT OF NORMAL ARE MORE PREDICTIVE OF MYOCARDIAL INJURY THAN LESSER ELEVATIONS. ([facility] 361:9, 2009) 91 This sample is drawn by:pg [employer] [facility] This sample is drawn by:pg [facility] [facility] This sample is drawn by:pg [employer] hours This sample is drawn by :pg [employer] [facility] This sample is drawn by:pg Fast[employer] hours This sample is drawn by:pg Fast[employer] hours 92 Unless otherwise specified, testing performed by [facility] [place] [address] 93 NOTE: [facility] METHOD AND REFERENCE RANGE EFFECTIVE 13 94 NORMAL KIDNEY FUNCTION OR MILD DISEASE - GFR >OR=60 CHRONIC KIDNEY DISEASE - GFR 15 - 59 RENAL FAILURE - GFR <15 Est. GFR calculation based on the MDRD study equation, which assumes a steady state for creatinine. Est. GFR should not be used for medication dosing. Unless otherwise specified, testing performed by [facility] [place] [address] 95 PER NCEP ATP III GUIDELINES: RESULTS LOWER THAN 40 MG/DL ARE SUGGESTIVE OF INCREASED RISK FOR CORONARY ARTERY DISEASE. RESULTS > OR=TO 60 MG/DL ARE CONSIDERED A NEGATIVE RISK FACTOR. 96 INTERPRETATION OF CHOL-HDL RATIO CHD RISK FEMALE MALE VERY HIGH >8.3 >14.3 HIGH 5.6- 8.3 6.7- 14.3 AVERAGE 3.7- 5.6 4.0- 6.7 BELOW AVERAGE 2.5- 3.7 2.7- 4.0 PROTECTED <2.5 <2.7 97 PER NCEP ATP III GUIDELINES: OPTIMAL < 100 NEAR OPTIMAL 100 - 129 BORDERLINE HIGH 130 - 159 HIGH 160 - 189 VERY HIGH > 189 Unless otherwise specified, testing performed by [facility] [place] [address] 98 NEW METHOD AND REFERENCE RANGE IN EFFECT 2013. Unless otherwise specified, testing performed by [facility] [address] [place] [address] 99 A REVIEW OF THE LITERATURE SUGGESTS THE FOLLOWING RANGES FOR THE CLASSIFICATION OF 25-OH VITAMIN D STATUS: VITAMIN D STATUS 25-OH VITAMIN D DEFICIENCY <20 NG/ML INSUFFICIENCY 20-30 NG/ML SUFFICIENCY 31 - 100 NG/ML TOXICITY > 100 NG/ML A PEDIATRIC REFERENCE RANGE HAS NOT BEEN ESTABLISHED USING THIS METHOD. Unless otherwise specified, testing performed by [facility] [address] [place] [address] 100 This sample is drawn by:pg [employer] [facility] 101 RESULT VERIFIED BY REPEAT TESTING. Unless otherwise specified, testing performed by [facility] [address] [place] [address] 102 This sample is drawn by: BW 103 Unless otherwise specified, testing performed by [facility] [address] [place] [address] 104 Unless otherwise specified, testing performed by [facility] [address] [place] [address] 105 NORMAL KIDNEY FUNCTION OR MILD DISEASE - GFR >OR=60 CHRONIC KIDNEY DISEASE - GFR 15 - 59 RENAL FAILURE - GFR <15 Est. GFR calculation based on the MDRD study equation, which assumes a steady state for creatinine. Est. GFR should not be used for medication dosing. Unless otherwise specified, testing performed by [facility] [address] [place] [address] 106 Unless otherwise specified, testing performed by [facility] [address] [place] [address] 107 A REVIEW OF THE LITERATURE SUGGESTS THE FOLLOWING RANGES FOR THE CLASSIFICATION OF 25-OH VITAMIN D STATUS: VITAMIN D STATUS 25-OH VITAMIN D DEFICIENCY <20 NG/ML INSUFFICIENCY 20-30 NG/ML SUFFICIENCY 31 - 100 NG/ML TOXICITY > 100 NG/ML A PEDIATRIC REFERENCE RANGE HAS NOT BEEN ESTABLISHED USING THIS METHOD. Unless otherwise specified, testing performed by [facility] [place] [address] 108 RESULT(S) CALLED TO AND READ BACK BY LINDA AT [id number] ON 02/22/12 AT 1314 [place] [id number] 109 This sample is drawn by:CD 110 Unless otherwise specified, testing performed by [facility] [place] [address] 111 Unless otherwise specified, testing performed by [facility] [facility] [place] [address] 112 VIT B12 REFERENCE RANGE: DEFICIENT: < 146 pg/mL INDETERMINATE: 146 - 179 pg/mL NORMAL: 180 - 914 pg/mL Unless otherwise specified, testing performed by [facility] [address] [place] [address] 113 A REVIEW OF THE LITERATURE SUGGESTS THE FOLLOWING RANGES FOR THE CLASSIFICATION OF 25-OH VITAMIN D STATUS: VITAMIN D STATUS 25-OH VITAMIN D DEFICIENCY <20 NG/ML INSUFFICIENCY 20-30 NG/ML SUFFICIENCY 31 - 100 NG/ML TOXICITY > 100 NG/ML A PEDIATRIC REFERENCE RANGE HAS NOT BEEN ESTABLISHED USING THIS METHOD. (UPDATED RANGES EFFECTIVE 01/14/09) Unless otherwise specified, testing performed by [facility] [address] [place] [address] 114 PER NCEP ATP III GUIDELINES: RESULTS LOWER THAN 40 MG/DL ARE SUGGESTIVE OF INCREASED RISK FOR CORONARY ARTERY DISEASE. RESULTS > OR=TO 60 MG/DL ARE CONSIDERED A NEGATIVE RISK FACTOR. 115 INTERPRETATION OF CHOL-HDL RATIO CHD RISK FEMALE MALE VERY HIGH >8.3 >14.3 HIGH 5.6- 8.3 6.7- 14.3 AVERAGE 3.7- 5.6 4.0- 6.7 BELOW AVERAGE 2.5- 3.7 2.7- 4.0 PROTECTED <2.5 <2.7 116 PER NCEP ATP III GUIDELINES: OPTIMAL < 100 NEAR OPTIMAL 100 - 129 BORDERLINE HIGH 130 - 159 HIGH 160 - 189 VERY HIGH > 189 Unless otherwise specified, testing performed by [facility] [place] [address] 117 NORMAL KIDNEY FUNCTION OR MILD DISEASE - GFR >OR=60 CHRONIC KIDNEY DISEASE - GFR 15 - 59 RENAL FAILURE - GFR <15 Est. GFR calculation based on the MDRD study equation, which assumes a steady state for creatinine. Est. GFR should not be used for medication dosing. Unless otherwise specified, testing performed by [facility] [place] [address] 118 Unless otherwise specified, testing performed by [facility] [place] [address] 119 This sample is drawn by:HR 120 NORMAL KIDNEY FUNCTION OR MILD DISEASE - GFR >OR=60 CHRONIC KIDNEY DISEASE - GFR 15 - 59 RENAL FAILURE - GFR <15 Est. GFR calculation based on the MDRD study equation, which assumes a steady state for creatinine. Est. GFR should not be used for medication dosing. Unless otherwise specified, testing performed by [facility] [place] [address] 121 A REVIEW OF THE LITERATURE SUGGESTS THE FOLLOWING RANGES FOR THE CLASSIFICATION OF 25-OH VITAMIN D STATUS: VITAMIN D STATUS 25-OH VITAMIN D DEFICIENCY <20 NG/ML INSUFFICIENCY 20-30 NG/ML SUFFICIENCY 31 - 100 NG/ML TOXICITY > 100 NG/ML A PEDIATRIC REFERENCE RANGE HAS NOT BEEN ESTABLISHED USING THIS METHOD. (UPDATED RANGES EFFECTIVE 01/14/09) Unless otherwise specified, testing performed by [facility] [address] [place] [address] [id number] 122 VIT B12 REFERENCE RANGE: DEFICIENT: < 146 pg/mL INDETERMINATE: 146 - 179 pg/mL NORMAL: 180 - 914 pg/mL NEW METHOD AND REFERENCE RANGE IN EFFECT OF 06/28/11 Unless otherwise specified, testing performed by [email or web address] [address] [place] [address] [id number] Unless otherwise specified, testing performed by [email or web address] [address] [place] [address] [id number] 124 Unless otherwise specified, testing performed by [facility] [address] [place] [address] 125 This sample is drawn by:hr 126 Unless otherwise specified, testing performed by [facility] [address] [place] [address] [phone] Unless otherwise specified, testing performed by [facility] [address] [place] [address] [id number] 128 Unless otherwise specified, testing performed by [facility] [address] [place] [address] [id number] 129 Unless otherwise specified, testing performed by [facility] [address] [place] [address] [id number] 130 NORMAL KIDNEY FUNCTION OR MILD DISEASE - GFR >OR=60 CHRONIC KIDNEY DISEASE - GFR 15 - 59 RENAL FAILURE - GFR <15 Est. GFR calculation based on the MDRD study equation, which assumes a steady state for creatinine. Est. GFR should not be used for medication dosing. Unless otherwise specified, testing performed by [facility] [address] [place] [address] [id number] Procedures Date Code Description Status 06/26/2018 [id number] Admin Of Inj (Therapeutic Phrophylactic Or Diagnostic Subq Completed Inj 03/19/2018 [id number] Admin Of Inj (Therapeutic Phrophylactic Or Diagnostic Subq Completed Inj 12/17/2017 81537 Admin Of Inj (Therapeutic Phrophylactic Or Diagnostic Subq Completed Inj 09/14/2017 70549 Admin Of Inj (Therapeutic Phrophylactic Or Diagnostic Subq Completed Inj 06/12/2017 [id number] Admin Of Inj (Therapeutic Phrophylactic Or Diagnostic Subq Completed Inj 03/15/2017 42856 Admin Of Inj (Therapeutic Phrophylactic Or Diagnostic Subq Completed Inj 12/04/2016 49668 Admin Of Inj (Therapeutic Phrophylactic Or Diagnostic Subq Completed Inj 08/31/2016 44015 Admin Of Inj (Therapeutic Phrophylactic Or Diagnostic Subq Completed Inj 06/15/2016 04861 Admin Of Inj (Therapeutic Phrophylactic Or Diagnostic Subq Completed Inj 03/16/2016 68466 Admin Of Inj (Therapeutic Phrophylactic Or Diagnostic Subq Completed Inj 12/16/2015 98662 Admin Of Inj (Therapeutic Phrophylactic Or Diagnostic Subq Completed Inj 10/04/2015 31791 Admin Of Inj (Therapeutic Phrophylactic Or Diagnostic Subq Completed Inj 08/31/2015 41077 Electrocardiogram Complete Completed 07/05/2015 74681 Admin Of Inj (Therapeutic Phrophylactic Or Diagnostic Subq Completed Inj 04/05/2015 69428 Admin Of Inj (Therapeutic Phrophylactic Or Diagnostic Subq Completed Inj 01/05/2015 64556 Admin Of Inj (Therapeutic Phrophylactic Or Diagnostic Subq Completed Inj 08/18/2014 45467 Holter Up To 48HR Incl Recording,Scanning RPT, Review & Completed Interp 08/06/2014 64405 Holter Up To 48HR Incl Recording,Scanning RPTDR Review & Completed Interp 08/03/2014 38798 Electrocardiogram Complete Completed 04/29/2013 35495 ECHO Transthoracis 2D W Spectral Doppler Completed Encounters Type Date Location Provider Dx Diagnosis Office Visit 06/26/2018 [facility] Farchione, S90.112A Contusion of LEFT 3:40p REJI Dominique great toe w/o damage to nail, init encntr Z32.02 Encounter for test, result negative Z30.8 Encounter for other contraceptive management Office Visit 06/05/2018 1:00p [facility] Flora Sin F70 [facility] MD Rex disabilities F33.0 Major depressive disorder, recurrent, mild F41.1 Generalized anxiety disorder F31.81 Bipolar II disorder G40.909 Epilepsy, unsp, not intractable, without status epilepticus R32 Unspecified urinary incontinence E03.9 Hypothyroidism, unspecified E22.1 Hyperprolactinemia E55.9 Vitamin D deficiency, unspecified E53.9 Vitamin B deficiency, unspecified E66.09 Other obesity due to excess calories Z68.32 Body mass index (BMI) 32.0-32.9, adult Office Visit 04/16/2018 10:15a [facility] Tomasa Sinant F70 [facility] MD Rex disabilities F31.81 Bipolar II disorder F33.0 Major depressive disorder, recurrent, mild F41.1 Generalized anxiety disorder G40.909 Epilepsy, unsp, not intractable, without status epilepticus R32 Unspecified urinary incontinence E55.9 Vitamin D deficiency, unspecified E53.9 Vitamin B deficiency, unspecified E66.09 Other obesity due to excess calories Z68.32 Body mass index (BMI) 32.0-32.9, adult Office Visit 03/19/2018 10:00a [facility], F70 [facility] REJI Davis disabilities I95.9 Hypotension, unspecified R56.9 Unspecified convulsions F31.81 Bipolar II disorder E03.9 Hypothyroidism, unspecified E55.9 Vitamin D deficiency, unspecified Z32.02 Encounter for test, result negative Z30.8 Encounter for other contraceptive management Z68.31 Body mass index (BMI) 31.0-31.9, adult Office Visit 01/16/2018 [facility] Shady, I95.9 Hypotension, 9:40a REJI Dominique unspecified F70 Mild intellectual disabilities R56.9 Unspecified convulsions F31.81 Bipolar II disorder Office Visit 12/17/2017 9:40a [facility], Z00.00 Encntr for REJI Dominique general adult medical exam w/o abnormal findings F70 Mild intellectual disabilities F31.81 Bipolar II disorder E03.9 Hypothyroidism, unspecified E55.9 Vitamin D deficiency, unspecified E22.1 Hyperprolactinemia R56.9 Unspecified convulsions Z32.02 Encounter for test, result negative Z68.30 Body mass index (BMI) 30.0-30.9, adult Z30.8 Encounter for other contraceptive management Office Visit 10/23/2017 1:00p [facility] Shady, F70 [facility] REJI Davis disabilities F31.81 Bipolar II disorder D35.2 Benign neoplasm of pituitary gland Z68.30 Body mass index (BMI) 30.0-30.9, adult E03.9 Hypothyroidism, unspecified E55.9 Vitamin D deficiency, unspecified E22.1 Hyperprolactinemia Office Visit 10/11/2017 3:15p [facility] Flora Sin F70 [facility] MD Rex disabilities F33.0 Major depressive disorder, recurrent, mild F41.1 Generalized anxiety disorder F31.81 Bipolar II disorder R56.9 Unspecified convulsions E03.9 Hypothyroidism, unspecified E22.1 Hyperprolactinemia E55.9 Vitamin D deficiency, unspecified E53.9 Vitamin B deficiency, unspecified E66.3 Overweight Z68.29 Body mass index (BMI) 29.0-29.9, adult J06.9 Acute upper respiratory infection, unspecified Office Visit 09/11/2017 [facility] Merrick, E03.9 Hypothyroidism, 10:30a Associates Flora Goodman MD unspecified E22.1 Hyperprolactinemia 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 F33.0 Major depressive disorder, recurrent, mild F41.1 Generalized anxiety disorder F31.81 Bipolar II disorder R56.9 Unspecified convulsions R53.83 Other fatigue E55.9 Vitamin D deficiency, unspecified E53.9 Vitamin B deficiency, unspecified E66.3 Overweight Z68.29 Body mass index (BMI) 29.0-29.9, adult Office Visit 06/12/2017 1:45p [facility] Flora Sin F70 [facility] MD Rex disabilities F33.0 Major depressive disorder, recurrent, mild F41.1 Generalized anxiety disorder F31.81 Bipolar II disorder E03.9 Hypothyroidism, unspecified E22.1 Hyperprolactinemia E55.9 Vitamin D deficiency, unspecified E53.9 Vitamin B deficiency, unspecified E66.3 Overweight Z68.29 Body mass index (BMI) 29.0-29.9, adult Z30.8 Encounter for other contraceptive management R35.0 Frequency of micturition R56.9 Unspecified convulsions Office Visit 04/19/2017 1:40p [facility] Ivonne Lozano, N76.0 Acute vaginitis Associates [facility] Mcgowan F70 Mild intellectual disabilities Office Visit 04/09/2017 1:20p [facility] Ivonne Lozano, N76.0 Acute vaginitis Associates NAVJOT Mcgowan F70 Mild intellectual disabilities S00.201A Unsp superfic inj RIGHT eyelid and perioculr area, init Office Visit 03/15/2017 11:00a [facility] Shady, F70 [facility] REJI Davis disabilities F33.0 Major depressive disorder, recurrent, mild Z30.8 Encounter for other contraceptive management D35.2 Benign neoplasm of pituitary gland Z32.02 Encounter for test, result negative Office Visit 03/06/2017 1:00p [facility] Flora Sin F70 [facility] MD Rex disabilities F33.0 Major depressive disorder, recurrent, mild F41.1 Generalized anxiety disorder F31.81 Bipolar II disorder E03.9 Hypothyroidism, unspecified E22.1 Hyperprolactinemia D35.2 Benign neoplasm of pituitary gland E55.9 Vitamin D deficiency, unspecified E53.9 Vitamin B deficiency, unspecified Office Visit 12/04/2016 11:00a [facility] Flora Sin Z00.00 Encntr for Williams Goodman MD general adult medical exam w/o abnormal findings F70 Mild intellectual disabilities F33.0 Major depressive disorder, recurrent, mild F41.1 Generalized anxiety disorder F31.81 Bipolar II disorder E03.9 Hypothyroidism, unspecified E22.1 Hyperprolactinemia D35.2 Benign neoplasm of pituitary gland E55.9 Vitamin D deficiency, unspecified Z23 Encounter for immunization Z30.8 Encounter for other contraceptive management Z30.9 Encounter for contraceptive management, unspecified Office Visit 11/15/2016 [facility] Colby Hough J01.90 Acute sinusitis, 2:45p Associates P, DO unspecified F70 Mild intellectual disabilities R05 Cough R56.9 Unspecified convulsions Office Visit 08/31/2016 [place] Ivonne E03.9 Hypothyroidism, 9:30a Medical Marta, unspecified Associates [facility] Mcgowan F33.0 Major depressive disorder, recurrent, mild R56.9 Unspecified convulsions 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 K59.00 Constipation, unspecified E22.1 Hyperprolactinemia R32 Unspecified urinary incontinence Z30.09 Encounter for oth general coun and advice on contraception Office Visit 07/17/2016 [facility] Merrick, E03.9 Hypothyroidism, 2:00p Williams Goodman MD unspecified F33.0 Major depressive disorder, recurrent, mild S00.83xA Contusion of other part of head, initial encounter R56.9 Unspecified convulsions 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 K59.00 Constipation, unspecified 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 Office Visit 06/15/2016 1:45p [facility] Merrick, D64.9 Anemia, Williams Goodman MD unspecified F70 Mild intellectual disabilities E03.9 Hypothyroidism, unspecified F33.0 Major depressive disorder, recurrent, mild S00.83xA Contusion of other part of head, initial encounter R56.9 Unspecified convulsions Z30.8 Encounter for other contraceptive management E22.1 Hyperprolactinemia Office Visit 04/04/2016 11:40a [facility] Colby Hough M79.642 [facility] P, DO LEFT hand W18.30xA Fall on same level, unspecified, initial encounter F70 Mild intellectual disabilities F41.1 Generalized anxiety disorder Office Visit 03/16/2016 [facility] Merrick, E03.9 Hypothyroidism, 8:45a Williams Goodman MD unspecified F33.0 Major depressive disorder, recurrent, mild F70 Mild intellectual disabilities K59.00 Constipation, unspecified F41.1 Generalized anxiety disorder R56.9 Unspecified convulsions 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 Z30.8 Encounter for other contraceptive management Office Visit 12/16/2015 [facility] Merrick, E03.9 Hypothyroidism, 9:45a Williams Goodman MD unspecified F33.0 Major depressive disorder, recurrent, mild F70 Mild intellectual disabilities K59.00 Constipation, unspecified F41.1 Generalized anxiety disorder R56.9 Unspecified convulsions Z30.8 Encounter for other contraceptive management R32 Unspecified urinary incontinence 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 Z79.899 Other senior care (current) drug therapy Z23 Encounter for immunization Z30.09 Encounter for oth general coun and advice on contraception Office Visit 10/04/2015 [facility] Merrick, E03.9 Hypothyroidism, 8:30a Williams Goodman MD unspecified F33.0 Major depressive disorder, recurrent, mild F70 Mild intellectual disabilities Z30.8 Encounter for other contraceptive management R56.9 Unspecified convulsions K59.00 Constipation, unspecified F41.1 Generalized anxiety disorder R32 Unspecified urinary incontinence 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 Office Visit 08/31/2015 [facility] Merrick, E03.9 Hypothyroidism, 10:00a Williams Goodman MD unspecified F41.1 Generalized anxiety disorder F33.0 Major depressive disorder, recurrent, mild K59.00 Constipation, unspecified F70 Mild intellectual disabilities Z30.8 Encounter for other contraceptive management Z79.899 Other lobsterman (current) drug therapy E66.9 Obesity, unspecified Z00.00 Encntr for general adult medical exam w/o abnormal findings Z23 Encounter for immunization Office Visit 07/05/2015 9:45a [facility] Merrick, R56.9 Unspecified Williams Goodman MD convulsions E55.9 Vitamin D deficiency, unspecified E03.9 Hypothyroidism, unspecified F41.1 Generalized anxiety disorder F33.0 Major depressive disorder, recurrent, mild K59.00 Constipation, unspecified F70 Mild intellectual disabilities Z79.899 Other senior care (current) drug therapy 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 Z30.8 Encounter for other contraceptive management Office Visit 04/05/2015 9:30a [facility] Merrick, R56.9 Unspecified Williams Goodman MD convulsions E55.9 Vitamin D deficiency, unspecified E03.9 Hypothyroidism, unspecified F41.1 Generalized anxiety disorder F32.9 Major depressive disorder, single episode, unspecified Z30.8 Encounter for other contraceptive management Office Visit 02/02/2015 10:45a [place] Louann Sin, R56.9 Unspecified Williams Goodman MD convulsions E55.9 Vitamin D deficiency, unspecified E03.9 Hypothyroidism, unspecified F41.1 Generalized anxiety disorder F32.9 Major depressive disorder, single episode, unspecified K59.00 Constipation, unspecified E66.9 Obesity, unspecified Office Visit 01/05/2015 Nataliia Back, Z30.013 Encounter for 8:00a [facility] SENIOR ANALYST PROGRAMMER initial prescription of injectable contracep Z70.9 Sex counseling, unspecified Office Visit 12/22/2014 2:00p [place] Louann Sin, E55.9 [facility] D [facility] Flora Goodman MD deficiency, unspecified F70 Mild intellectual disabilities Z79.899 Other senior care (current) drug therapy K59.00 Constipation, unspecified F32.9 Major depressive disorder, single episode, unspecified R56.9 Unspecified convulsions E66.9 Obesity, unspecified Z30.8 Encounter for other contraceptive management Office Visit 11/03/2014 1:00p [place] Flora Wiley Z23 Encounter for Williams Goodman MD immunization E55.9 Vitamin D deficiency, unspecified F70 Mild intellectual disabilities Z79.899 Other lobsterman (current) drug therapy K59.00 Constipation, unspecified F32.9 Major depressive disorder, single episode, unspecified R56.9 Unspecified convulsions N39.498 Other specified urinary incontinence E66.9 Obesity, unspecified Office Visit 08/17/2014 2:00p Nataliia Back, SENIOR ANALYST PROGRAMMER 786.50 [facility] Unspec V67.59 Exam Follow Up Other Office Visit 08/03/2014 11:00a Flora Scott 317 [facility] MD Rex Mild 300.02 Anxiety Disorder Generalized 268.9 Vitamin D Deficiency Unspec V58.69 Medications Snf (Current) Use Encounter 244.9 Hypothyroidism Other Unspec V70.0 Exam (Adult) General Medical Routine AT Health Care Facility Office Visit 05/20/2014 2:20p Nataliia Back, 079.99 [facility] Infection [facility] SENIOR ANALYST PROGRAMMER Unspec Office Visit 05/12/2014 10:00a Nataliia Back, 719.44 [facility] SENIOR ANALYST PROGRAMMER 959.01 Injury Head Unspecified E885.9 Fall From Other Slipping,Tripping, Or Stumbling V67.59 Exam Follow Up Other Office Visit 02/23/2014 10:40a Nataliia Back, 112.3 Candidiasis Skin [facility] SENIOR ANALYST PROGRAMMER & Nails 244.9 Hypothyroidism Other Unspec 311 Depressive Disorder Not Elsewhere Spec 780.39 Convulsions Other 300.02 Anxiety Disorder Generalized 564.00 Constipation Unspecified Office Visit 01/05/2014 3:00p [place] Louann Sin, V58.69 Medications Neftaly Goodman MD Term (Current) Use Encounter 780.79 Malaise And Fatigue Other Office 12/29/2013 Beto Sin, E885.9 Fall From Other Visit 4:00p Louann Goodman MD Slipping,Tripping, Or Associates Stumbling V58.69 Medications Snf (Current) Use Encounter Office 11/19/2013 Beto Sin, V04.81 Need For Prophylactic Visit 8:45a Louann Goodman MD Vaccination & Associates Inoculation/Influenza V58.69 Medications Postal Sorting Officer (Current) Use Encounter 244.9 Hypothyroidism Other Unspec 311 Depressive Disorder Not Elsewhere Spec 780.39 Convulsions Other 300.02 Anxiety Disorder Generalized 564.00 Constipation Unspecified Office Visit 09/22/2013 3:30p [facility] Eddie, 787.91 Diarrhea [facility] MD Javad Office Visit 07/30/2013 11:30a [facility] Merrick, V58.69 Medications Neftaly Goodman MD Term (Current) Use Encounter 244.9 Hypothyroidism Other Unspec 300.02 Anxiety Disorder Generalized 311 Depressive Disorder Not Elsewhere Spec 780.39 Convulsions Other V58.69 Medications Snf (Current) Use Encounter V25.8 Contraceptive Management Spec Other 788.39 Incontinence Urinary Other 564.00 Constipation Unspecified V70.0 Exam (Adult) General Medical Routine AT Health Care Facility 782.1 Rash & Other Nonspec Skin Eruption 278.00 Obesity Unspec 268.9 Vitamin D Deficiency Unspec Office Visit 05/15/2013 [facility] Odilia, 244.9 Hypothyroidism 10:00a [facility] NAVJOT Fan Other Unspec 300.02 Anxiety Disorder Generalized 311 Depressive Disorder Not Elsewhere Spec 780.39 Convulsions Other V58.69 Medications Snf (Current) Use Encounter Office Visit 04/14/2013 [facility] Odilia, 244.9 Hypothyroidism 10:00a [facility] NAVJOT Fan Other Unspec 300.02 Anxiety Disorder Generalized V58.69 Medications Snf (Current) Use Encounter 311 Depressive Disorder Not Elsewhere Spec 780.39 Convulsions Other V25.8 Contraceptive Management Spec Other 788.39 Incontinence Urinary Other Office Visit 01/14/2013 [facility], 244.9 Hypothyroidism 10:00a Williams Fan NP Other Unspec 300.02 Anxiety Disorder Generalized V58.69 Medications Snf (Current) Use Encounter 311 Depressive Disorder Not Elsewhere Spec 780.39 Convulsions Other Office Visit 10/15/2012 [facility] Odilia, 244.9 Hypothyroidism 9:00a Williams Fan NP Other Unspec 300.02 Anxiety Disorder Generalized V58.69 Medications Postal Sorting Officer (Current) Use Encounter 311 Depressive Disorder Not Elsewhere Spec 780.39 Convulsions Other [facility], 244.9 Hypothyroidism 3:00p Williams Fan NP Other Unspec 300.02 Anxiety Disorder Generalized V58.69 Medications Snf (Current) Use Encounter 311 Depressive Disorder Not Elsewhere Spec 780.39 Convulsions Other Office Visit 07/15/2012 [facility], 244.9 Hypothyroidism 9:00a Williams Fan NP Other Unspec 300.02 Anxiety Disorder Generalized V58.69 Medications Snf (Current) Use Encounter 311 Depressive Disorder Not Elsewhere Spec 564.00 Constipation Unspecified Office Visit 04/12/2012 [facility] Odilia, 244.9 Hypothyroidism 9:00a Williams Fan NP Other Unspec 300.02 Anxiety Disorder Generalized V58.69 Medications Snf (Current) Use Encounter 311 Depressive Disorder Not Elsewhere Spec Office Visit 03/01/2012 [facility], 244.9 Hypothyroidism 11:00a Williams Fan NP Other Unspec 300.02 Anxiety Disorder Generalized 564.00 Constipation Unspecified V58.69 Medications Snf (Current) Use Encounter Office Visit 01/19/2012 3:00p [place] Louann Sin Digant V70.0 Exam (Adult) Williams Goodman MD General Medical Routine AT Health Care Facility 244.9 Hypothyroidism Other Unspec 266.2 B Complex Deficiencies Other 268.9 Vitamin D Deficiency Unspec 564.00 Constipation Unspecified V25.8 Contraceptive Management Spec Other 788.39 Incontinence Urinary Other 278.00 Obesity Unspec Office Visit 11/27/2011 2:45p Beto Sin Digant 461.0 Sinusitis Acute Williams Goodman MD Maxillary V58.69 Medications Snf (Current) Use Encounter Office Visit 09/15/2011 10:30a [facility] Merrick, 300.02 Anxiety Disorder [facility] Flora Goodman MD Generalized 244.9 Hypothyroidism Other Unspec 268.9 Vitamin D Deficiency Unspec 564.00 Constipation Unspecified V25.8 Contraceptive Management Spec Other 788.39 Incontinence Urinary Other V74.1 Screening Examination Pulmonary Tuberculosis Office Visit 05/29/2011 8:15a [facility] Merrick, 300.02 Anxiety [facility] Flora Goodman MD Generalized 311 Depressive Disorder Not Elsewhere Spec 268.9 Vitamin D Deficiency Unspec 244.9 Hypothyroidism Other Unspec V58.69 Medications Snf (Current) Use Encounter 788.39 Incontinence Urinary Other 564.00 Constipation Unspecified V25.8 Contraceptive Management Spec Other Plan of Treatment Future Appointment(s):08/29/2018 1:30 pm - Flora Sin MD at [facility]07/18/2018 - Flora Sin MDF70 Mild intellectual disabilitiesComments:We will need to closely monitor the patient.F33.0 Major depressive disorder, recurrent, mildComments:Condition reviewed in detail, the patient's mood is stable at present with current medication regimen. We will continue to monitor.F41.1 Generalized anxiety disorderComments:The patient is relatively doing well on current regimen without any adverse effects, will continue the same. We will continue to monitor.F31.81 Bipolar II disorderComments:Condition reviewed in detail, will continue to monitor.G40.909 Epilepsy, unsp, not intractable, without status epilepticusComments:She has history of seizure disorder. We will continue current medication regimen. We will continueto monitor.R32 Unspecified urinary incontinenceComments:She continues to struggle with urinary incontinence. Continue current medication regimen. We will continue to monitor.E03.9 Hypothyroidism, unspecifiedComments: The patient was advised to continue on current medication regimen. We will need to monitor her TSH periodically.E22.1 HyperprolactinemiaComments:She is on estrogen replacement therapy. She will follow up with [facility]. We will continue to monitor.E55.9 Vitamin D deficiency, unspecifiedComments:Will continue supplements and we will need to check blood work periodically. Improvement in symptomsseen.E53.9 Vitamin B deficiency, unspecifiedComments:We will continue to monitor her blood work periodically.E66.09 Other obesity due to excess caloriesComments:The patient had lost around 1lbs of body weight since the previous visit and she currently weighs around 189lbs. A detailed discussion was had with the patient regarding her body weight and BMI. She was made aware about the health hazards of obesity including diabetes, hypertension , cardiac diseases, and other various risk factors. She was advised to maintain a healthy, low-calorie diet and a regular exercise regimen which will help her lose weight. Greater than 10 minutes spent on counseling.Z68.32 Body mass index (BMI) 32.0-32.9, adultComments:Her BMI is at 32.4. She was strongly encouraged to lose weight with low-calorie diet and exercises. We will continue to monitor her weight and BMI periodically.AllFollow up:The patient will follow- up in six weeks for reevaluation.
[2018-08-13 15:21] VITALS: BP 119/52
--- NOTE | 2018-08-13 15:32 | UC ---
Lower Extremity/Ankle HPI - HPI Summary HPI Summary: 33 y/o female w/ mild MR presents to the urgent care accompany by Home health Aid Mrs Flor c/o left foot pain and bruise s/p injury w/a chair on Sunday. Mrs Flor reports a chair landed accidentally on Pt's left foot at the Assisted. The next day the left foot was mildly swollen and was not c/o of pain. This morning was c/o pain when she walked. She was wearing sandals and the Assisted Nurse noticed Pt's left foot was swollen w/ a bruise and recommend Pt have an X-ray and be evaluated by a provider. Pt has been taken Tylenol PO to alleviate symptoms. No meds today. Pain is 4/10 at rest on the dorsal side of the foot and 6/10 when she walks. Pt denies numbness or tingling sensation over the left foot or ankle, calf pain, SOB, chest pain, abdominal pain. N/V/d. - History of Current Complaint Chief Complaint: UCLowerExtremity Stated Complaint: LT FOOT INJURY Time Seen by Provider: 08/13/18 15:27 Hx Obtained From: Patient, Family/Webbing Inspector - Home health Aid Mrs Flor Hx Last Menstrual Period: pt on depo ?: No Onset/Duration: Sudden Onset, Lasting Days - 4 days, Still Present Severity Initially: Moderate Severity Currently: Moderate Pain Intensity: 4 - at rest Pain Scale Used: 0-10 Numeric Aggravating Factor(s): Standing, Ambulation Alleviating Factor(s): Rest, OTC Meds Able to Bear Weight: Yes - Risk Factors Gout Risk Factors: Negative DVT Risk Factors: Negative Septic Arthritis Risk Factor: Negative - Allergies/Home Medications Allergies/Adverse Reactions: Allergies Allergy/AdvReac Type Severity Reaction Status Date / Time No Known Allergies Allergy Verified 04/04/17 18:36 Home Medications: Home Medications Cholecalciferol (Vitamin D3) [Vitamin D3] 2,000 unit PO DAILY 08/13/18 [History Confirmed 08/13/18] Conjugated Estrogens TAB* [Premarin TAB*] 0.3 mg PO DAILY 08/13/18 [History Confirmed 08/13/18] Oxybutynin TAB* [Ditropan TAB*] 5 mg PO DAILY 08/13/18 [History Confirmed ] QUEtiapine TAB* [Seroquel 100 MG *] 100 mg PO BEDTIME 08/13/18 [History Confirmed 08/13/18] clonazePAM TAB(*) [Klonopin TAB(*)] 0.5 mg PO DAILY 08/13/18 [History Confirmed 08/13/18] risperiDONE TAB* [Risperdal*] 2 mg PO DAILY 08/13/18 [History Confirmed 08/13/18 ] PMH/Surg Hx/FS Hx/Imm Hx Previously Healthy: Yes Endocrine History: Hypothyroidism Neurological History: Seizures Other Neurological History: Mild Mental Retardation Other Psychological History: Boderline personality - Surgical History Surgical History: Yes Surgery Procedure, Year, and Place: SURGERY AN - Family History Known Family History: Positive: Cardiac Disease, Hypertension Family History: Dementia - Social History Occupation: Disabled Lives: Assisted Alcohol Use: Rare Substance Use Type: None Smoking Status (MU): Never Smoked Tobacco - Immunization History Vaccination Up to Date: Yes Review of Systems All Other Systems Reviewed And Are Negative: Yes Constitutional: Positive: Negative Skin: Positive: Bruising - dorsal side of left foot s/p injury Eyes: Positive: Negative ENT: Positive: Negative Respiratory: Positive: Negative Cardiovascular: Positive: Negative Gastrointestinal: Positive: Negative Genitourinary: Positive: Negative Motor: Positive: Negative Neurovascular: Positive: Negative Musculoskeletal: Positive: Other: - left foot pain and swelling s/p injury w/a chair Neurological: Positive: Negative Psychological: Positive: Negative Is Patient Immunocompromised?: No Physical Exam - Summary Physical Exam Summary: Vital Signs Reviewed: Yes General : well developed, well nourished MR obese female w/o any apparent distress Eyes: Positive: Conjunctiva Clear - PERRLA, EOMI ENT: Positive: Normal ENT inspection, Hearing grossly normal, Pharynx normal, TMs normal Neck: Positive: Supple, Nontender, No Lymphadenopathy Respiratory: Positive: Chest non-tender, Lungs clear, Normal breath sounds, No respiratory distress Cardiovascular: Positive: RRR, No Murmur, Pulses Normal Abdomen Description: Positive: Nontender, No Organomegaly, Soft. Negative: CVA Tenderness (R), CVA Tenderness (L) Bowel Sounds: Positive: Present Musculoskeletal: Positive: Strength Intact, ROM Intact, No Edema, LF Foot/Toes: Pt is able to bear weight but ambulate with mild limping. RT LFfoot :positive soft tissue swelling over the dorsal side of the forefoot w/ mild ecchymosis and bruise, no erythema, no ulcers or break in skin integrity. The L foot is without obvious asymmetry or deformity when compared to the R foot. No bony step-off, No tenderness to palpation over toes, point tenderness over the dorsal side of mid foot and fore foot, no tenderness of hindfoot, Decrease plantar/dorsiflexion, inversion/eversion due to pain. Distal motor and neurovascular status are intact. Neurological Exam: Normal Psychological Exam: Normal Skin Exam: Normal Triage Information Reviewed: Yes Vital Signs: Initial Vital Signs Temp 99.2 F 08/13/18 15:14 Pulse 70 08/13/18 15:14 Resp 18 08/13/18 15:14 BP 119/52 08/13/18 15:14 Pulse Ox 99 08/13/18 15:14 Lower Extremity Course/Dx - Course Course Of Treatment: 33 y/o female w/ mild MR presents to the urgent care accompany by Home health Aid Mrs Flor c/o left foot pain and bruise s/p injury w/a chair on Sunday. Mrs Flor reports a chair landed accidentally on Pt's left foot at the Assisted. The next day the left foot was mildly swollen and was not c/o of pain. This morning was c/o pain when she walked. She was wearing sandals and the Assisted Nurse noticed Pt's left foot was swollen w/ a bruise and recommend Pt have an X-ray and be evaluated by a provider. Pt has been taken Tylenol PO to alleviate symptoms. No meds today. Pain is 4/10 at rest on the dorsal side of the foot and 6/10 when she walks. Pt denies numbness or tingling sensation over the left foot or ankle, calf pain, SOB, chest pain, abdominal pain. N/V/d. Hx obtained. LF foot X-ray ordered, Impression:soft tissue swelling over fore foot. There was no fracture, dislocation. Probably Foot sprain s/p contusion. Pt's foot immobilized with keyshawn-bandage and given a post- op shoe to avoid flexion. Advised RICE, and coantinue taken Tylenol PO for pain , If not improvement of symptoms to f/u with Orthopedic DR Kang referral for further evaluation and treatment. Mrs Flor and Pt understood and agreed with D/C instructions. Pt left clinic ambulating. - Differential Dx/Diagnosis Differential Diagnosis/HQI/PQRI: Arthritis, Contusion, Fracture (Closed), Sprain , Strain, Tendonitis Provider Diagnosis: Contusion of left foot, Sprain of left foot Discharge - Sign-Out/Discharge Documenting (check all that apply): Patient Departure - D/C home All imaging exams completed and their final reports reviewed: Yes - Discharge Plan Condition: Stable Disposition: HOME Patient Education Materials: Foot Contusion (ED), Foot Sprain (ED) Forms: *Work Release Referrals: [facility] WALSH,Flora [Primary Care Provider] - 3 Days Jordy Kang MD [Medical Doctor] - 1 Week Additional Instructions: 1-Please continue taken Tylenol PO q6-8hrs prn as directed to alleviate pain and swelling. 2-Please apply ice prn and as tolerated , keep your foot immobilized with the Keyshawn bandage at all times. Avoid strenuous exercise or standing for long periods of time. Elevate your left foot to decrease swelling 3- Please f/u with your PCP or Orthopedic DR Kang in 1 week if not improvement of symptoms for further evaluation and treatment. - Billing Disposition and Condition Condition: STABLE Disposition: Home
[2018-08-13] MEDS ORDERED: Acetaminophen TAB* 325 MG PO ONE (15:46)
== END 2018-08-13 17:05 | disposition home or self-care (01) ==
LOC: UCCORT 14:10
DX: S93.602A Unspecified sprain of left foot, initial encounter (principal); S90.32XA Contusion of left foot, initial encounter; W20.8XXA Other cause of strike by thrown, projected or falling object, initial encounter; Y93.9 Activity, unspecified; Y92.009 Unspecified place in unspecified non-institutional (private) residence as the place of occurrence of the external cause; F70 Mild intellectual disabilities; R56.9 Unspecified convulsions; F60.3 Borderline personality disorder
CPT/HCPCS: 99212; A9270-GY; G0463

== ENCOUNTER 2018-11-29 17:24 | Emergency (ER) | payer MEDICAID ==
--- OUTSIDE RECORDS SUMMARY | 2018-11-29 18:05 | XMS REPORT | Continuity of Care Document ---
:1985 External Reference #:[id number] Author Name Roslyn Smith NP Address [address], [address] [place] [address] Care Team Providers Name Role Phone Flora Sin MD - Family Medicine Care Team Information It Audit Manager Ravin Lenz M.D. 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/2016 Constipation Roslyn Smith NP Onset: 08/31/2016 Mood disorder Roslyn Smith NP Onset: 08/31/2016 Seizure Roslyn Smith NP Onset: 08/31/2016 Mild recurrent major depression Roslyn Smith NP Onset: 08/31 Social History Type Date Description Comments Sex Unknown ETOH Use Denies alcohol use Tobacco Use Reviewed: 04/16/18 Patient has never smoked Smoking Status Reviewed: 09/17/18 Patient has never smoked Allergies, Adverse Reactions, Alerts Description No Known Drug Allergies Medications Active Medications SIG Qnty Indications Ordering Date Provider Notify RN After First Dose 1units Merrick, 09/22/19 With Results. Flora Goodamn, 19 Must Have JOE WALSH Approval For 2ND Dose Same Day. Must Have Physician Order For More Than 2 Consecutive Stool Softener Take 2 Capsules 60caps Nanavati, 06/11/19 100mg Capsules (200MG) By Mouth AT Digant M., 19 Bedtime * Hold MD For Loose Stools * Cabergoline one tablet twice per Nanavati, 10/24/19 0.5mg Tablets week Digant M., 18 [facility] ([facility] Acetate intramuscularly REJI Davis 18 150mg/ml Suspension every3 months Clonazepam 1 by mouth three 90tabs Nanava, 08/03/19 1mg Tablets times a day MDD 3 Digant M., 18 Premarin Take 1 Tablet By 30tabs [facility], 03/11/19 0.3mg Tablets Mouth Daily Digant M., 18 Fluticasone Propionate Use 1 Sprays In Each 16units [facility], 11/16/19 Nostril Daily Digant M., 17 50mcg/Act Suspension MD PERSON Triple Antibiotic apply topically to 28.400gm [facility], 10/12/19 affected area up to Digant M., 17 3.5-400-5000 Ointment four times a day as MD needed *may use up to 5 consecutive day Q-Tussin Take 2 Teaspoonfuls 00units [facility], 10/12/19 100mg/5ML Solution By Mouth Every 4 Digant M., 17 Hours as Needed For MD Minor Cough Without Fever >100 ID-Acid Take 1 Tablespoonful 355units [facility], 09/07/19 [phone]/5ML By Mouth Every 4 Digant M., 17 Suspension Hours as Needed For MD Stomach Upset And Heart Burn SM Hydrocortisone Apply Topically To 28.35unit [facility], 09/07/19 Maximum Strength Affected Area Up To s Digant M., 17 1% Ointment 2 Times A Day *May MD Use For Up To 3 Consecutive Days Docqlace Take 2 Capsules 60caps Nanavati, 04/14/19 100mg Capsules (200MG) By Mouth AT Digant M., 16 Bedtime * Hold MD For Loose Stools * Fleet Enema give enema today- if 2units Nanavati, 05/30/19 7-19GM/118ML no bm, repeat in 12 Digant M., 15 Enema hours. if no bm MD after 2nd enema- call pcp. Plaquemine Carbonate one capsule three Other 02/23/19 300mg times a day Provider 15 Capsules Vitamin D3 Take 1 Capsule By 30caps Merrick, 11/20/19 2000Unit Capsules Mouth Daily For Digant M., 14 Supplement Levothyroxine Sodium take 1 tablet by 30tadominique Sin, 11/01/19 75mcg mouth 30 minutes Digant M., 13 Tablets before breakfast Latanoprost 1 drop in each eye Unknown 0.005% Solution at bedtime 00 Biotene Dry Mouth use several times a Unknown Liquid day when mouth is 00 very dry otc Mapap Take 2 Tablets By 00tabs Merrick, 325mg Tablets Mouth Every 4 Hours Digant M., 00 Asneeded For Pain Or MD Fever >101*May Take Up To 7 Days Consecutively Risperidone one table by mouth Unknown 2mg Tablets every afternoon (in 00 addition to Am dose of 3mg) Quetiapine Fumarate one tablet by mouth Unknown 100mg at bedtime 00 Tablets Lamotrigine Take 1 Tablet By 56tabs Merrick, 100mg Tablets Mouth 2 Times Daily Digant M., 00 Oxybutynin Chloride ER 1 by mouth every day Unknown 10mg 00 Tablets ER 24HR Citalopram Hydrobromide Unknown 40mg 00 Tablets Risperdal one tablet in Am Unknown 1mg Tablets 00 Medications Administered in Office Medication SIG Qnty Indications Ordering Provider Date Medroxyprogesterone Acetate, 1MG Farchione, Susan, 09/17/2018 - Use 150MG For Depo-Provera PA Injection Medroxyprogesterone Acetate, 1MG Farchione, Susan, 06/26/2018 - Use 150MG For Depo-Provera PA Injection Medroxyprogesterone Acetate, 1MG Farchione, Susan, 03/19/2018 - Use 150MG For Depo-Provera PA Injection Medroxyprogesterone Acetate, 1MG Juwanchione, Susan, 12/17/2017 - Use 150MG For Depo-Provera [...] For Depo-Provera MD Injection Medroxyprogesterone Acetate, 1MG Depaulis Fiumano, 08/31/2016 - Use 150MG For Depo-Provera Roslyn, CAUSTIC STRENGTH INSPECTOR Injection Medroxyprogesterone Acetate, 1MG Nanavati, Digant M., [...] Depo-Provera MD Injection Medroxyprogesterone Acetate, 1MG Nataliia Kenny CAUSTIC STRENGTH INSPECTOR 01/05/2015 - Use 150MG For Depo-Provera Injection PPD Nanavati, Digant M., 09/15/2011 Injection MD Immunizations CPT Code Status Date Vaccine Lot # [id number] Given 12/10/2017 Influenza Virus Vaccine,Quadrivalent,Split,Preserv [id number] Free, 0.5mL,Im [address] Given 12/04/2016 Influenza Virus Vaccine,Quadrivalent,Split,Preserv [id number] Free, 0.5mL,[place] 37743 Given 12/16/2015 Influenza Vac, Quadrivalent, Split, 0.5mL Dosage, [id number] Im Use 94527 Given 08/31/2015 Tdap (Adacel) Ages 7 And Above Only 06508 Given 11/03/2014 Influenza Vac, Quadrivalent, Split, 0.5mL Dosage, [id number] Im Use 36163 Given 11/19/2013 Influenza Virus Vaccine,Quadrivalent,Split,Preserv [id number] Free, 0.5mL,Im [id number] Given 01/19/2012 Fluvirin Immunization [id number] 32151 Given 11/12/2006 Tdap (Adacel) Ages 7 And Above Only Vital Signs Date Vital Result Comment 11/08/2018 3:13pm Body Temperature 97.0 F Weight 191.00 lb Heart Rate 89 /min BP Systolic 120 mmHg BP Diastolic 72 mmHg Respiratory Rate 18 /min Height 64 inches 5'4" O2 % BldC Oximetry 99 % BMI (Body Mass Index) 32.8 kg/m2 09/17/2018 1:28pm Body Temperature 97.9 F Weight 198.00 lb Heart Rate 79 /min BP Systolic 112 mmHg BP Diastolic 64 mmHg Respiratory Rate 18 /min Height 64 inches 5'4" O2 % BldC Oximetry 98 % BMI (Body Mass Index) 34.0 kg/m2 Results Test Date Facility Test Result H/L Range Note 1 Urinalysis By 11/08/2018 Done In Doctors Office Z#Color PALE YELLOW Machine (In Ho Z#Appearance CLEAR Z#Urine,Leukocytes - Z#Nitrite - Z#Urobilinogen - Z#Urine,Protein - Z#PH Urine 6.5 Z#Blood, Urine +3 Z#Specific [place] 1.005 Z#Ketones Urine - Z#Bili,Urine - Z#Glu Urine - Laboratory test finding 10/30/2018 [facility] Cortisol 60min post 23.9 g/dL 1 Laboratory test finding 10/30/2018 [facility] Cortisol 30min post 20.1 g/dL 2 Laboratory test finding 10/30/2018 [facility] Cortisol 8.6 g/dL 3 Acth, Plasma 7.0 pg/mL Low 7.2-63.3 4 Laboratory test finding 10/17/2018 [facility] TSH 0.752 u[IU]/mL 0.270 -4.200 Free Thyroxine 1.63 ng/dL 0.93-1.70 Basic Metabolic Panel 10/17/2018 [facility] Hco3 Ser-sCnc 24 mmol/L 22 -29 Chloride SerPl-sCnc 104 mmol/L 98-107 Creat SerPl-mCnc 0.66 mg/dL 0.50-0.90 Glucose SerPl-mCnc 80 mg/dL 70-140 Potassium SerPl-sCnc 4.8 mmol/L 3.4-5.1 Sodium SerPl-sCnc 137 mmol/L 136-145 BUN SerPl-mCnc 15 mg/dL 6-20 Anion Gap3 SerPl-sCnc 9 mmol/L 8-15 Osmolality SerPl Calc 284 mosm/kg 275-300 Creat/Urea nit SerPl 23 Calcium SerPl-mCnc 9.5 mg/dL 8.6-10.0 GFR/Bsa pred.non black SerPl MDRD-ArVRat >90 mL/min/1.73m2 >60 GFR/Bsa pred.black SerPl MDRD-ArVRat >90 mL/min/1.73m2 >60 Laboratory test 10/17/2018 [facility] Prolactin 80.5 ng/ml High 4.7- 23.3 finding Affirm 10/16/2018 [facility] Trichomonas Negative [ Negative] 5 Vaginitis Panel (315)- - vaginalis Gardnerella vaginalis Negative [Negative] Linda species Negative [Negative] 6 Urinalysis With 10/16/2018 [facility] Urine Color STRAW Yellow Microscopic (315)- - Urine Clarity CLEAR Clear Urine Glucose - Dipstick NEGATIVE mg/dL Negative Urine Bilirubin - Dipstick NEGATIVE Negative Urine Ketone NEGATIVE mg/dL Negative Urine Specific [place] <= 1.005 Low 1.010-1.030 Urine Blood SMALL Abnormal 0-2 Urine PH 5.5 Low 6.5-7.5 Urine Protein - Dipstick NEGATIVE mg/dL Negative Urine Urobilinogen - Dipstick 0.2 E.U./dL Normal 0.2-1.0 Urine Nitrite - Dipstick NEGATIVE Negative Urine Leuk Esterase TRACE Abnormal Negative Urine RBC 0-2 rbc/hpf 0-2 Urine WBC 0-2 wbc/hpf 0-7 Urine Epithelial Cells VERY FEW /lpf None Seen Source: URINE, CLEAN CAT <SEE NOTE> 7 Laboratory test 09/17/2018 Done In Doctors Office 1 Preg Urine negative Negative finding (In-House) Drugs Of 09/07/2018 [facility] Amphetamines Negative 8 Abuse-Urine (315)- - (Urine) Screen 7 Barbiturates (Urine) Negative Benzodiazepines (Urine) Negative Cannabinoids (Urine) Negative Cocaine Metabolite (Urine) Negative Methadone (Urine) Negative Opiates (Urine) Negative Urine Cutoffs * 9 1 >17.9 ug/dL after IV ACTH >15.9 ug/dL after IM ACTH 2 >17.9 ug/dL after IV ACTH >15.9 ug/dL after IM ACTH 3 Ref range for 6-10 am samples: 6.0-18.4 ug/dL Ref range for 4-8 pm samples: 2.7-10.5 ug/dL Ref range not established for other times. 4 (NOTE) ACTH reference interval for samples collected between 7 and 10 AM. Performed At: RN [facility] [address] [id number] Joe Dye MD Ph:[phone] 5 FEVER,PAINFUL URINATION, HIT TO THE HEAD 6 Method: BD Affirm VPIII DNA Probe Assay 7 URINE, CLEAN CATCH 8 MENTAL HEALTH EVAL 9 URINE SPECIMENS ARE SCREENED AT THE LISTED CUTOFFS DRUG CLASS INITIAL TEST LEVEL Amphetamines 1000 ng/mL Barbiturates 200 ng/mL Benzodiazepines 200 ng/mL Cannabinoids 50 ng/mL Cocaine Metabolite 300 ng/mL Methadone 300 ng/mL Opiates 300 ng/mL Any PRESUMPTIVE POSITIVE findings are UNCONFIRMED. Confirmatory testing is suggested if findings are unexpected. Please contact laboratory if confirmatory testing is desired. SPECIMENS ARE HELD FOR 72 HOURS. Procedures Date Code Description Status 09/17/2018 33087 Admin Of Inj (Therapeutic Phrophylactic Or Diagnostic Subq Completed Inj 06/26/2018 41273 Admin Of Inj (Therapeutic Phrophylactic Or Diagnostic Subq Completed Inj Medical Devices Description No Information Available Encounters Type Date Location Provider Dx Diagnosis Office Visit 09/17[facility]2018 [facility] Encounter for other 1:00p REJI Dominique preprocedural examination E22.1 Hyperprolactinemia F70 Mild intellectual disabilities F33.0 Major depressive disorder, recurrent, mild F41.1 Generalized anxiety disorder F31.81 Bipolar II disorder G40.909 Epilepsy, unsp, not intractable, without status epilepticus R32 Unspecified urinary incontinence E03.9 Hypothyroidism, unspecified E55.9 Vitamin D deficiency, unspecified S05.11xD Contusion of eyeball and orbital tissues, RIGHT eye, subs E66.9 Obesity, unspecified Z68.34 Body mass index (BMI) 34.0-34.9, adult Office Visit 08/29/2018 1:30p [facility] Flora Sin FPearl Hurt intellectual Williams Goodman MD disabilities F33.0 Major depressive disorder, recurrent, mild F41.1 Generalized anxiety disorder F31.81 Bipolar II disorder G40.909 Epilepsy, unsp, not intractable, without status epilepticus R32 Unspecified urinary incontinence E03.9 Hypothyroidism, unspecified E22.1 Hyperprolactinemia E55.9 Vitamin D deficiency, unspecified E53.9 Vitamin B deficiency, unspecified E66.09 Other obesity due to excess calories Z68.33 Body mass index (BMI) 33.0-33.9, adult Office Visit 07/18/2018 1:15p [facility] Flora Sin F70 Blu Goodman MD disabilities F33.0 Major depressive disorder, recurrent, mild F41.1 Generalized anxiety disorder F31.81 Bipolar II disorder G40.909 Epilepsy, unsp, not intractable, without status epilepticus R32 Unspecified urinary incontinence E03.9 Hypothyroidism, unspecified E22.1 Hyperprolactinemia E55.9 Vitamin D deficiency, unspecified E53.9 Vitamin B deficiency, unspecified E66.09 Other obesity due to excess calories Z68.32 Body mass index (BMI) 32.0-32.9, adult Office Visit 06/26/2018 [facility] S90.112A Contusion of 3:40p REJI Dominique LEFT great toe w/o damage to nail, init encntr Z32.02 Encounter for test, result negative Z30.8 Encounter for other contraceptive management Office Visit 06/05/2018 1:00p [facility] Flora Sin MD disabilities F33.0 Major depressive disorder, recurrent, mild F41.1 Generalized anxiety disorder F31.81 Bipolar II disorder G40.909 Epilepsy, unsp, not intractable, without status epilepticus R32 Unspecified urinary incontinence E03.9 Hypothyroidism, unspecified E22.1 Hyperprolactinemia E55.9 Vitamin D deficiency, unspecified E53.9 Vitamin B deficiency, unspecified E66.09 Other obesity due to excess calories Z68.32 Body mass index (BMI) 32.0-32.9, adult Assessments Date Code Description Provider 11/08/2018 E66.9 Obesity, unspecified Roslyn Smith, CAUSTIC STRENGTH INSPECTOR 11/08/2018 Z68.32 Body mass index (BMI) 32.0-32.9, adult Roslyn Smith, CAUSTIC STRENGTH INSPECTOR 11/08/2018 R35.0 Frequency of micturition Roslyn Smith CAUSTIC STRENGTH INSPECTOR 09/17/2018 Z01.818 Encounter for other preprocedural Farchione, Susan, PA examination 09/17/2018 E22.1 Hyperprolactinemia Farchione, Susan, PA 09/17/2018 F70 Mild intellectual disabilities Farchione, Susan, PA 09/17/2018 F33.0 Major depressive disorder, recurrent, Farchione, Susan, PA mild 09/17/2018 F41.1 Generalized anxiety disorder Farchione, Susan, PA 09/17/2018 F31.81 Bipolar II disorder Farchione, Susan, PA 09/17/2018 G40.909 Epilepsy, unspecified, not Farchione, Susan, PA intractable, without status epile 09/17/2018 R32 Unspecified urinary incontinence Farchione, Susan, PA 09/17/2018 E03.9 Hypothyroidism, unspecified Farchione, Susan, PA 09/17/2018 E55.9 Vitamin D deficiency, unspecified Farchione, Susan, PA 09/17/2018 S05.11xD Contusion of eyeball and orbital Farchione, Susan, PA tissues, RIGHT eye, subsequent encounter 09/17/2018 E66.9 Obesity, unspecified Farchione, Susan, PA 09/17/2018 Z68.34 Body mass index (BMI) 34.0-34.9, adult Faraudeliaone, Susan , PA 08/29/2018 F70 Mild intellectual disabilities Flora Sin MD 08/29/2018 F33.0 Major depressive disorder, recurrent, Flora Sin MD mild 08/29/2018 F41.1 Generalized anxiety disorder Flora Sin MD 08/29/2018 F31.81 Bipolar II disorder Flora Sin MD 08/29/2018 G40.909 Epilepsy, unspecified, not Flora Sin MD intractable, without status epile 08/29/2018 R32 Unspecified urinary incontinence Flora Sin MD 08/29/2018 E03.9 Hypothyroidism, unspecified Flora Sin MD 08/29/2018 E22.1 Hyperprolactinemia Flora Sin MD 08/29/2018 E55.9 Vitamin D deficiency, unspecified Flora Sin MD 08/29/2018 E53.9 Vitamin B deficiency, unspecFlora Cardona MD 08/29/2018 E66.09 Other obesity due to excess calories Flora Sin MD 08/29/2018 Z68.33 Body mass index (BMI) 33.0-33.9, adult Flora Sin MD 07/18/2018 F70 Mild intellectual disabilities Flora Sin MD 07/18/2018 F33.0 Major depressive disorder, recurrent, Flora Sin MD mild 07/18/2018 F41.1 Generalized anxiety disorder Flora Sin MD 07/18/2018 F31.81 Bipolar II disorder Flora Sin MD 07/18/2018 G40.909 Epilepsy, unspecified, not Flora Sin MD intractable, without status epile 07/18/2018 R32 Unspecified urinary incontinence Flora Sin MD 07/18/2018 E03.9 Hypothyroidism, miguelified Flora Sin MD 07/18/2018 E22.1 Hyperprolactinemia Flora Sin MD 07/18/2018 E55.9 Vitamin D deficiency, unspecified Flora Sin MD 07/18/2018 E53.9 Vitamin B deficiency, unspecified Flora Sin MD 07/18/2018 E66.09 Other obesity due to excess calories Flora Sin MD 07/18/2018 Z68.32 Body mass index (BMI) 32.0-32.9, adult Flora Sin MD 06/26/2018 S90.112A Contusion of LEFT great toe without Farchione, REJI Davis damage to nail, initial 06/26/2018 Z32.02 Encounter for test, result Susan Caruso PA negative 06/26/2018 Z30.8 Encounter for other contraceptive Susan Caruso PA management 06/05/2018 F70 Mild intellectual disabilities Flora Sin MD 06/05/2018 F33.0 Major depressive disorder, recurrent, Flora Sin MD mild 06/05/2018 F41.1 Generalized anxiety disorder Flora Sin MD 06/05/2018 F31.81 Bipolar II disorder Flora Sin MD 06/05/2018 G40.909 Epilepsy, unspecified, not Flora Sin MD intractable, without status epile 06/05/2018 R32 Unspecified urinary incontinence Flora Sin MD 06/05/2018 E03.9 Hypothyroidism, unspecified Flora Sin MD 06/05/2018 E22.1 Hyperprolactinemia Flora Sin MD 06/05/2018 E55.9 Vitamin D deficiency, unspecified Flora Sin MD 06/05/2018 E53.9 Vitamin B deficiency, unspecified Flora Sin MD 06/05/2018 E66.09 Other obesity due to excess calories Flora Sin MD 06/05/2018 Z68.32 Body mass index (BMI) 32.0-32.9, adult Flora Sin MD Plan of Treatment 11/08/2018 - Depaulis Fiumano, Roslyn, NPE66.9 Obesity, unspecifiedComments: currently not on meds. Diet and exercise encouraged. Time spent discussing portion control and food choices.Z68.32 Body mass index (BMI) 32.0-32.9, adultComments:diet and exercise and weight loss encouraged.R35.0 Frequency of micturitionComments:check urine urinalysis in office is clear. will send out for culture. will hold on antibiotic until culture results return. if positive, will start on antibiotic. for now increase fluids. monitor. Functional Status Description No Information Available Mental Status Description No Information Available Referrals Description No Information Available
[2018-11-29 18:12] VITALS: BP 111/71
--- NOTE | 2018-11-29 18:23 | UC ---
Hand/Wrist HPI - HPI Summary HPI Summary: Pt punched a wall this am with her right hand. Pt states the hand is bruised and sore when she bends it. - History Of Current Complaint Chief Complaint: UCUpperExtremity Stated Complaint: RIGHT HAND INJURY Time Seen by Provider: 11/29/18 18:19 Hx Obtained From: Patient Hx Last Menstrual Period: Depo ?: No Onset/Duration: Sudden Onset, Lasting Hours Severity Initially: Mild Severity Currently: Mild Pain Intensity: 0 Character Of Pain: Dull, Aching Aggravating Factor(s): Movement - Allergies/Home Medications Allergies/Adverse Reactions: Allergies Allergy/AdvReac Type Severity Reaction Status Date / Time No Known Allergies Allergy Verified 11/29/18 18:12 Home Medications: Home Medications Desmopressin TAB (NF) 0.1 mg PO BID 11/29/18 [History Confirmed 11/29/18] Hydrocortisone TAB* [Cortef TAB*] 10 mg PO BID 11/29/18 [History Confirmed 11/29] Hydrocortisone TAB* [Cortef TAB*] 10 mg PO DAILY 11/29/18 [History Confirmed ] lamoTRIgine [Lamictal] 100 mg PO DAILY 11/29/18 [History Confirmed 11/29/18] risperiDONE [Risperidone] 1 mg PO DAILY 11/29/18 [History Confirmed 11/29/18] risperiDONE [Risperidone] 2 mg PO DAILY 11/29/18 [History Confirmed 11/29/18] PMH/Surg Hx/FS Hx/Imm Hx Previously Healthy: Yes - Surgical History Surgical History: Yes Surgery Procedure, Year, and Place: SURGERY AN , 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 - Family History Known Family History: Positive: Cardiac Disease, Hypertension Family History: Dementia - Social History Alcohol Use: Rare Substance Use Type: None Smoking Status (MU): Never Smoked Tobacco - Immunization History Vaccination Up to Date: Yes Review of Systems All Other Systems Reviewed And Are Negative: Yes Skin: Positive: Bruising Musculoskeletal: Positive: Arthralgia, Edema Physical Exam Triage Information Reviewed: Yes Appearance: Well-Appearing, Well-Nourished, Pain Distress Vital Signs: Initial Vital Signs Temp 97.4 F 11/29/18 18:08 Pulse 74 11/29/18 18:08 Resp 15 11/29/18 18:08 BP 111/71 11/29/18 18:08 Pulse Ox 100 11/29/18 18:08 Vital Signs Reviewed: Yes Eye Exam: Normal ENT Exam: Normal Dental Exam: Normal Neck exam: Normal Respiratory Exam: Normal Respiratory: Positive: Chest non-tender, Lungs clear, Normal breath sounds Cardiovascular Exam: Normal Cardiovascular: Positive: RRR, No Murmur, Pulses Normal Abdominal Exam: Normal Abdomen Description: Positive: Nontender, No Organomegaly, Soft Musculoskeletal: Positive: ROM Intact, Strength Limited @ - 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 - Differential Dx/Diagnosis Differential Diagnosis/HQI/PQRI: Contusion, Fracture, Sprain, Strain Provider Diagnosis: Contusion of right hand, initial encounter Discharge ED - Sign-Out/Discharge Documenting (check all that apply): Patient Departure All imaging exams completed and their final reports reviewed: No - Discharge Plan Condition: Stable Disposition: HOME Patient Education Materials: Contusion in Adults (ED) Referrals: Flora Sin MD [Primary Care Provider] - Additional Instructions: 1. use the aniket wrap of support a dn reduction of swelling 2. Ibuprofen or tylenol for any pain 3. Follow up if not improving in the next week your xray has no apparent fracture noted, it will be read by the radiologist in the morning and if he sees anything different we will call you. - Billing Disposition and Condition Condition: STABLE Disposition: Home
--- NOTE | 2018-11-30 10:22 | UC ---
- Progress Note Progress Note: Final radiologist reading a right hand x-ray from November 29, 2018 comes back as soft tissue swelling no fracture. Provider interpretation the same date is no fracture therefore there is no discrepancy. Course/Dx - Diagnoses Provider Diagnoses: Contusion of right hand, initial encounter Discharge ED - Sign-Out/Discharge Documenting (check all that apply): Patient Departure All imaging exams completed and their final reports reviewed: Yes - Discharge Plan Condition: Stable Disposition: HOME Patient Education Materials: Contusion in Adults (ED) Referrals: Flora Sin MD [Primary Care Provider] - Additional Instructions: 1. use the aniket wrap of support a dn reduction of swelling 2. Ibuprofen or tylenol for any pain 3. Follow up if not improving in the next week your xray has no apparent fracture noted, it will be read by the radiologist in the morning and if he sees anything different we will call you. - Billing Disposition and Condition Condition: STABLE Disposition: Home
== END 2018-11-29 18:50 | disposition home or self-care (01) ==
LOC: UCCORT 17:24
DX: S60.221A Contusion of right hand, initial encounter (principal); W22.01XA Walked into wall, initial encounter; Y92.9 Unspecified place or not applicable
CPT/HCPCS: 99212; G0463

== ENCOUNTER 2019-03-31 14:08 | Emergency (ER) | payer MEDICAID ==
--- OUTSIDE RECORDS SUMMARY | 2019-03-31 15:12 | XMS REPORT | Continuity of Care Document ---
:1985 External Reference #:[id number] Author Name Flora Sin MD Address [address] [place] [address] Care Team Providers Name Role Phone Flora Sin MD - Family Medicine Care Team Information Mine Technician Ravin Lenz M.D. 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 Urinary incontinence Roslyn Smith NP Onset: 08/31/2016 Generalized anxiety disorder Roslyn Smith NP Onset: 2018 Mild mental handicap Roslyn Smith NP Onset: 01/22/2019 Bipolar disorder Roslyn Smith NP Onset: 01/22/2019 Epilepsy Roslyn Smith NP Onset: 01/22/2019 Social History Type Date Description Comments Sex Unknown ETOH Use Denies alcohol use Tobacco Use Reviewed: 01/22/19 Patient has never smoked Smoking Status Reviewed: 01/22/19 Patient has never smoked Allergies, Adverse Reactions, Alerts Description No Known Drug Allergies Medications Active Medications SIG Qnty Indications Ordering Date Provider Vitamin D3 Take 1 Capsule By 30caps Saadiaava, 03/13/19 50mcg (2000 Ut) Mouth Daily For Digant M., 20 Capsules Supplement MD Notify RN After First Dose 1units Nanavati, 09/22/19 With Results. M., 19 Must Have RN MD Approval For 2ND Dose Same Day. Must Have Physician Order For More Than 2 Consecutive Stool Softener Take 2 Capsules 60caps Nanavati, 06/11/19 100mg Capsules (200MG) By Mouth AT Digant M., 19 Bedtime * Hold MD For Loose Stools * Cabergoline one tablet twice per [facility], 10/24/19 0.5mg Tablets week Dig M., 18 Medroxyprogesterone Inject 1ML 1units [facility], 09/13/19 Acetate Intramuscularly Dig M., 18 150mg/ml Suspension Every 3 Months Clonazepam 1 by mouth three 90tabs [facility], 08/03/19 1mg Tablets times a day MDD 3 Digant M., 18 Premarin Take 1 Tablet By 30tabs [facility], 03/11/19 0.3mg Tablets Mouth Daily Digant M., 18 Fluticasone Propionate Use 1 Sprays In Each 16units [place], 11/16/19 Nostril Daily Digant M., 17 50mcg/Act Suspension MD PERSON Triple Antibiotic apply topically to 28.400gm [facility], 10/12/19 affected area up to Digant M., 17 3.5-400-5000 Ointment four times a day as MD needed *may use up to 5 consecutive day Q-Tussin Take 2 Teaspoonfuls 00units Nanavati, 10/12/19 100mg/5ML Solution By Mouth Every 4 Digant M., 17 Hours as Needed For Minor Cough Without Fever >100 KS-Acid Take 1 Tablespoonful 355units Nanavati, 09/07/19 234-372-60ek/5ML By Mouth Every 4 Digant M., 17 Suspension Hours as Needed For Stomach Upset And Heart Burn SM Hydrocortisone Apply Topically To 28.35unit [facility], 09/07/19 Maximum Strength Affected Area Up To s Digant M., 17 1% Ointment 2 Times A Day *May MD Use For Up To 3 Consecutive Days Docqlace Take 2 Capsules 60caps [facility], 04/14/19 100mg Capsules (200MG) By Mouth AT Digant M., 16 Bedtime * Hold MD For Loose Stools * Fleet Enema give enema today- if 2units Merrick, 05/30/19 7-19GM/118ML no bm, repeat in 12 Digant M., 15 Enema hours. if no bm MD after 2nd enema- call pcp. [place] Carbonate one capsule three Other 02/23/19 300mg times a day Provider 15 Capsules Levothyroxine Sodium take 1 tablet by 30tabs [facility], 11/01/19 75mcg mouth 30 minutes Digant M., [...] Indications Ordering Provider Date Medroxyprogesterone Acetate, 1MG [facility] Digant M., 03/24/2019 - Use 150MG For Depo-Provera Injection Medroxyprogesterone Acetate, 1MG Location V1 Nurse 2 12/19/2018 - Use 150MG For Depo-Provera Injection Medroxyprogesterone Acetate, 1MG Farchione, Susan, 09/17/2018 - [...] For Depo-Provera MD Injection Medroxyprogesterone Acetate, 1MG Depbreezys Marta, 08/31/2016 - Use 150MG For Depo-Provera Roslyn, AUGER OPERATOR Injection Medroxyprogesterone Acetate, 1MG Nanavati, Digant M., [...] For Depo-Provera MD Injection Medroxyprogesterone Acetate, 1MG Flora Sin, 07/05/2015 - Use 150MG For Depo-Provera MD Injection Medroxyprogesterone Acetate, 1MG Flora Sin, 04/05/2015 - Use 150MG For Depo-Provera MD Injection Medroxyprogesterone Acetate, 1MG Nataliia Kenny, AUGER OPERATOR 01/05/2015 - Use 150MG For Depo-Provera Injection PPD Flora Sin, 09/15/2011 Injection MD Immunizations CPT Code Status Date Vaccine Lot # [id number] Given 12/13/2018 Influenza Vaccine Preservative & Antibiotic Free For Im Use 11726 Given 12/10/2017 Influenza Virus Vaccine,Quadrivalent,Split,Preserv [id number] Free, 0.5mL,[place] 7[address]83 Given 12/04/2016 Influenza Virus Vaccine,Quadrivalent,Split,Preserv [id number] Free, 0.5mL,[place] 65107 Given 12/16/2015 Influenza Vac, Quadrivalent, Split, 0.5mL Dosage, [id number] Im Use 80451 Given 08/31/2015 Tdap (Adacel) Ages 7 And Above Only 24755 Given 11/03/2014 Influenza Vac, Quadrivalent, Split, 0.5mL Dosage, [id number] Im Use 51093 Given 11/19/2013 Influenza Virus Vaccine,Quadrivalent,Split,Preserv [id number] Free, 0.5mL,Im Q2037 Given 01/19/2012 Fluvirin Immunization [id number] 85625 Given 11/12/2006 Tdap (Adacel) Ages 7 And Above Only Vital Signs Date Vital Result Comment 03/24/2019 9:01am Body Temperature 97.1 F Weight 189.00 lb Heart Rate 103 /min BP Systolic 124 mmHg BP Diastolic 70 mmHg Respiratory Rate 16 /min Height 64 inches 5'4" O2 % BldC Oximetry 98 % BMI (Body Mass Index) 32.4 kg/m2 01/22/2019 9:10am Body Temperature 97.0 F Weight 188.00 lb Heart Rate 97 /min BP Systolic 116 mmHg BP Diastolic 76 mmHg Respiratory Rate 16 /min Height 64 inches 5'4" O2 % BldC Oximetry 98 % BMI (Body Mass Index) 32.3 kg/m2 Results Test Acquired Date Facility Test Result H/L Range Note Laboratory test 03/24/2019 [facility] 1 Preg negative Negative finding Urine (In-House) CBC with Auto 03/24/2019 [facility] RBC 4.46 10*6/uL (4.00-5.40) 1 Diff-fcmg HGB 12.6 g/dL (12.0-16.0) HCT 38.9 % (36.0-47.0) MCV 87.2 fL (80.0-95.0) MCH 28.2 pg (27.0-32.0) MCHC 32.4 g/dL (32.0-36.0) RDW 16.0 % High (10.5-14.5) PLT 279 10*3/uL (150-450) MPV 9.8 fL (7.1-10.7) WBC 16.2 10*3/uL High (4.1-11.0) Neut % 79.3 % High (35.0-75.0) Lymph % 11.3 % Low (16.0-52.0) [place] % 6.6 % (0.0-8.0) Eos % 2.4 % (0.0-5.0) Baso % 0.4 % (0.0-4.0) Neut # 12.9 10*3/uL High (1.8-7.7) Lymph # 1.8 10*3/uL (1.2-4.8) [place] # 1.1 10*3/uL High (0.0-0.8) Eos # 0.4 10*3/uL (0.0-0.5) Baso # 0.1 10*3/uL (0.0-0.2) 2 Comprehensive Met Panel-FCMG 03/24/2019 [facility] Sodium 141 mmol/L (136- 145) Potassium 4.3 mmol/L (3.6-5.2) Chloride 111 mmol/L High (100-108) Co2 25 mmol/L (22-31) Anion Gap 5 mmol/L Low (7-16) Urea Nitrogen 14 mg/dL (7-24) Creatinine 0.75 mg/dL (0.60-1.00) BUN/Creat Ratio 18.7 RATIO (10.0-20.0) Glucose 81 mg/dL (70-99) Calcium 9.4 mg/dL (8.4-10.2) Total Protein 6.9 g/dL (6.4-8.2) Albumin 3.5 g/dL (3.5-4.6) Globulin 3.4 g/dL (2.7-4.3) Alb/Glob Ratio 1.0 RATIO Alkaline Phosphatase 155 U/L High (45-117) Bilirubin,Total 0.3 mg/dL (0.0-1.0) Ast (Sgot) 30 U/L (11-39) Alt (SGPT) 61 U/L (12-78) GFR >60 ml/min/1.73m2 (>59) GFR ( Amer) >60 ml/min/1.73m2 (>59) GFR Interpretation (SEE NOTE) 3 Laboratory test 03/24/2019 [facility] TSH 2.370 mIU/L (0.360-4.170) 4 finding Lipid Panel-RL 03/24/2019 [facility] Cholesterol @ 144 mg/dL (0-200) Triglyceride @ 132 mg/dL (30-200) HDL Cholesterol @ 43 mg/dL (>40) 5 Chol/HDL Ratio 3.3 RATIO 6 LDL Chol (Calc) 75 mg/dL (<130) 7 Laboratory test 12/19/2018 Done [facility] 1 Preg Urine negative Negative finding (In-House) Comprehensive Met 12/18/2018 [facility] Sodium 137 mmol/L (136-145) 8 Panel-FCMG Potassium 4.5 mmol/L (3.6-5.2) Chloride 107 mmol/L (100-108) Co2 24 mmol/L (22-31) Anion Gap 6 mmol/L Low (7-16) Urea Nitrogen 11 mg/dL (7-24) Creatinine 0.67 mg/dL (0.60-1.00) BUN/Creat Ratio 16.4 RATIO (10.0-20.0) Glucose 81 mg/dL (70-99) Calcium 9.3 mg/dL (8.4-10.2) Total Protein 7.4 g/dL (6.4-8.2) Albumin 3.8 g/dL (3.5-4.6) Globulin 3.6 g/dL (2.7-4.3) Alb/Glob Ratio 1.1 RATIO Alkaline Phosphatase 138 U/L High (45-117) Bilirubin,Total 0.5 mg/dL (0.0-1.0) Ast (Sgot) 20 U/L (11-39) Alt (SGPT) 38 U/L (12-78) GFR >60 ml/min/1.73m2 (>59) GFR ( Amer) >60 ml/min/1.73m2 (>59) GFR Interpretation (SEE NOTE) 9 CBC with Auto Diff-fcmg 12/18/2018 [facility] WBC 14.0 10*3/uL High (4.1- 11.0) RBC 4.73 10*6/uL (4.00-5.40) HGB 13.4 g/dL (12.0-16.0) HCT 41.2 % (36.0-47.0) MCV 87.1 fL (80.0-95.0) MCH 28.2 pg (27.0-32.0) MCHC 32.4 g/dL (32.0-36.0) RDW 15.9 % High (10.5-14.5) PLT 273 10*3/uL (150-450) MPV 10.1 fL (7.1-10.7) Neut % 77.4 % High (35.0-75.0) Lymph % 15.7 % Low (16.0-52.0) [place] % 4.6 % (0.0-8.0) Eos % 1.7 % (0.0-5.0) Baso % 0.6 % (0.0-4.0) Neut # 10.9 10*3/uL High (1.8-7.7) Lymph # 2.2 10*3/uL (1.2-4.8) [place] # 0.7 10*3/uL (0.0-0.8) Eos # 0.2 10*3/uL (0.0-0.5) Baso # 0.1 10*3/uL (0.0-0.2) 10 Laboratory test finding 12/18/2018 [facility] Prolactin 104.0 ng/mL 11 Direct LDL 94 mg/dL (<130) 12 Laboratory test 12/13/2018 [facility] Cortisol 60min 22.6 g/dL 13 finding post Laboratory test 12/13/2018 [facility] Cortisol 30min 20.4 g/dL 14 finding post Laboratory test 12/13/2018 [facility] Dhea-S 34 g/dL <340 finding Cortisol 6.3 g/dL 15 Acth, Plasma 5.1 pg/mL Low 7.2-63.3 16 Drugs Of 12/06/2018 [facility] Amphetamines (Urine) Negative 17 Abuse-Urine Screen (315)- - 7 Barbiturates (Urine) Negative Benzodiazepines (Urine) Negative Cannabinoids (Urine) Negative Cocaine Metabolite (Urine) Negative Methadone (Urine) Negative Opiates (Urine) Negative Urine Cutoffs * 18 Urinalysis With 12/06/2018 [facility] Urine Color Colorless Yellow Microscopic (315)- - Urine Clarity Clear Clear Urine Glucose - Dipstick NEGATIVE mg/dL Negative Urine Bilirubin - Dipstick NEGATIVE Negative Urine Ketone NEGATIVE mg/dL Negative Urine Specific [place] 1.012 Normal 1.010-1.030 Urine Blood MODERATE Abnormal 0-2 Urine PH 5.5 Low 6.5-7.5 Urine Protein - Dipstick NEGATIVE mg/dL Negative Urine Urobilinogen - Dipstick < 2.0 mg/dL < 2.0 Urine Nitrite - Dipstick NEGATIVE Negative Urine Leuk Esterase NEGATIVE Negative Urine RBC 21-30 rbc/hpf 0-2 Urine WBC 0-2 wbc/hpf 0-5 Urine Epithelial Cells FEW /lpf None Seen Urine Mucus SMALL None Seen Source: URINE, CLEAN CAT <SEE NOTE> 19 CBS W/Automated 12/06/2018 [facility] White Blood 15.2 K/ uL High 3.1-10.7 Diff (315)- - Count Red Blood Count 4.23 M/uL Normal 3.90-5.40 Hemoglobin 12.3 gm/dL Normal 11.6-15.8 Hematocrit 38.4 % Normal 36.0-46.1 Mean Cell Volume 90.8 fl Normal 80.9-99.0 Mean Corpuscular HGB 29.1 pg Normal 25.9-32.7 Mean Corpuscular HGB Conc 32.0 g/dL Normal 30.8-34.3 Platelet Count 284 K/uL Normal 155-360 Red Cell Distri Width SD 50.1 fl High 36-47 Red Cell Distri Width %CV 15.3 % High 11.7-14.4 Mean Platelet Volume 10.8 fl Normal 8.9-12.4 Neut% 73.4 % High 40.4-72.8 Lymph % 18.8 % Low 20.0-42.0 [place] % 5.2 % Normal 4.3-13.2 Eo% 1.6 % Normal 0.0-6.6 Bas% 0.5 % Normal 0.0-1.1 Immature Grans 0.5 % Normal 0.0-5.0 NRBC % 0.0 /100WBC < 10/ 100 WBC Neut# 11.18 K/uL High 1.8-7.0 Lymph # 2.87 K/uL Normal 1.0-4.0 [place] # 0.79 K/uL Normal 0.3-0.9 Eos # 0.25 K/uL Normal 0.0-0.5 Baso # 0.07 K/uL Normal 0.0-0.1 Immature Grans Absolute 0.08 K/uL NRBC # 0.00 K/uL Laboratory test 12/06/2018 [facility] Salicylate < 1.7 mg /dL Low 2.8-20.0 20 finding (315)- - Urinalysis With 12/05/2018 [facility] Urine Color Light- Yello Yellow 21 Microscopic (315)- - w Urine Clarity Clear Clear Urine Glucose - Dipstick NEGATIVE mg/dL Negative Urine Bilirubin - Dipstick NEGATIVE Negative Urine Ketone NEGATIVE mg/dL Negative Urine Specific [place] 1.013 Normal 1.010-1.030 Urine Blood LARGE Abnormal 0-2 Urine PH 6.5 Normal 6.5-7.5 Urine Protein - Dipstick TRACE mg/dL Negative Urine Urobilinogen - Dipstick < 2.0 mg/dL < 2.0 Urine Nitrite - Dipstick NEGATIVE Negative Urine Leuk Esterase NEGATIVE Negative Urine RBC 21-30 rbc/hpf 0-2 Urine WBC 0-2 wbc/hpf 0-5 Urine Epithelial Cells FEW /lpf None Seen Urine Bacteria FEW None Seen Urine Hyaline Cast 6-10 #/lpf None Seen Urine Mucus SMALL None Seen Source: URINE, CLEAN CAT <SEE NOTE> 22 Drugs Of Abuse-Urine 12/05/2018 [facility] Amphetamines ( Urine) Negative Screen 7 (315)- - Barbiturates (Urine) Negative Benzodiazepines (Urine) Negative Cannabinoids (Urine) Negative Cocaine Metabolite (Urine) Negative Methadone (Urine) Negative Opiates (Urine) Negative Urine Cutoffs * 23 Laboratory test 12/05/2018 [facility] [place] 0.49 Low 0.60-1.20 finding (315)- - mmol/L Laboratory test 12/05/2018 [facility] Salicylate < 1.7 Low 2.8-20.0 24 finding (315)- - mg/dL Laboratory test 12/05/2018 [facility] TSH Reflex FT4 1.19 Normal 0.30-4.20 finding (315)- - and/or FT3 uIU/mL HCG,Serum (Qualitative) NEGATIVE (Negative) Comprehensive Metabolic 12/05/2018 [facility] Glucose 117 mg/dL High 74-106 Panel (315)- - BUN 12 mg/dL Normal 7-18 Creatinine 0.9 mg/dL Normal 0.6-1.3 Glom Filtration Rate, Estimate >60 mL/min >60 If >60 mL/min >60 25 BUN/Creat 13.3 ratio Sodium 140 mmol/L Normal 136-145 Potassium 3.6 mmol/L Normal 3.5-5.1 Chloride 111 mmol/L High 98-107 Carbon Dioxide 24 mmol/L Normal 21-32 Anion Gap 5 mEq/L Low 8-16 Calcium 9.1 mg/dL Normal 8.5-10.1 Total Protein 7.0 g/dL Normal 6.4-8.2 Albumin 3.5 g/dL Normal 3.4-5.0 Globulin 3.5 g/dL Normal 1.9-4.3 Alb/Glob 1.0 ratio Bilirubin,Total 0.2 mg/dL Normal 0.2-1.0 Sgot/Ast 13 U/L Low 15-37 26 SGPT/Alt 28 U/L Normal 12-78 Alkaline Phosphatase 118 U/L High 45-117 Laboratory test 12/05/2018 [facility] Acetaminophen < 2.0 ug/mL Low 10.0-30.0 27 finding (315)- - Ethyl Alcohol < 3.0 mg/dL CBS W/Automated 12/05/2018 [facility] White Blood 11.3 K/ uL High 3.1-10.7 Diff (315)- - Count Red Blood Count 4.36 M/uL Normal 3.90-5.40 Hemoglobin 12.5 gm/dL Normal 11.6-15.8 Hematocrit 39.6 % Normal 36.0-46.1 Mean Cell Volume 90.8 fl Normal 80.9-99.0 Mean Corpuscular HGB 28.7 pg Normal 25.9-32.7 Mean Corpuscular HGB Conc 31.6 g/dL Normal 30.8-34.3 Platelet Count 284 K/uL Normal 155-360 Red Cell Distri Width SD 50.5 fl High 36-47 Red Cell Distri Width %CV 15.1 % High 11.7-14.4 Mean Platelet Volume 10.7 fl Normal 8.9-12.4 Neut% 77.6 % High 40.4-72.8 Lymph % 14.5 % Low 20.0-42.0 [place] % 5.1 % Normal 4.3-13.2 Eo% 1.9 % Normal 0.0-6.6 Bas% 0.5 % Normal 0.0-1.1 Immature Grans 0.4 % Normal 0.0-5.0 NRBC % 0.0 /100WBC < 10/ 100 WBC Neut# 8.79 K/uL High 1.8-7.0 Lymph # 1.64 K/uL Normal 1.0-4.0 [place] # 0.58 K/uL Normal 0.3-0.9 Eos # 0.22 K/uL Normal 0.0-0.5 Baso # 0.06 K/uL Normal 0.0-0.1 Immature Grans Absolute 0.05 K/uL NRBC # 0.00 K/uL 1 Urinalysis By Machine 11/08/2018 Done In [facility] Z#Color PALE YELLOW (In Ho Z#Appearance CLEAR Z#Urine,Leukocytes - Z#Nitrite - Z#Urobilinogen - Z#Urine,Protein - Z#PH Urine 6.5 Z#Blood, Urine +3 Z#Specific [place] 1.005 Z#Ketones Urine - Z#Bili,Urine - Z#Glu Urine - Laboratory test 10/30/2018 [facility] Cortisol 60min post 23.9 g/dL 28 finding Laboratory test 10/30/2018 [facility] Cortisol 30min post 20.1 g/dL 29 finding Laboratory test 10/30/2018 [facility] Cortisol 8.6 g/dL 30 finding Acth, Plasma 7.0 pg/mL Low 7.2-63.3 31 Laboratory test finding 10/17/2018 [facility] TSH 0.752 u[IU]/mL 0.270 -4.200 Free Thyroxine 1.63 ng/dL 0.93-1.70 Basic Metabolic Panel 10/17/2018 [facility] Hco3 Ser-sCnc 24 mmol/L 22 -29 [...] MDRD-ArVRat >90 mL/min/1.73m2 >60 Laboratory test 10/17/2018 [facility] Prolactin 80.5 ng/ml High 4.7- 23.3 finding Affirm 10/16/2018 [facility] Trichomonas Negative [ Negative] 32 Vaginitis Panel (315)- - vaginalis Gardnerella vaginalis Negative [Negative] Linda species Negative [Negative] 33 Urinalysis With 10/16/2018 [facility] Urine Color STRAW Yellow Microscopic (315)- - Urine Clarity CLEAR Clear Urine Glucose - Dipstick NEGATIVE mg/dL Negative Urine Bilirubin - Dipstick NEGATIVE Negative Urine Ketone NEGATIVE mg/dL Negative Urine Specific [place] <= 1.005 Low 1.010-1.030 Urine Blood SMALL [...] Seen Source: URINE, CLEAN CAT <SEE NOTE> 34 1 This sample is drawn by: TK 2 Unless otherwise specified, testing performed by [facility] [place] [address] 3 NORMAL KIDNEY FUNCTION OR MILD DISEASE - GFR >OR= 60 CHRONIC KIDNEY DISEASE - GFR 15 - 59 RENAL FAILURE - GFR <15 Est. GFR calculation based on the MDRD study equation, which assumes a steady state for creatinine. Est. GFR should not be used for medication dosing. Unless otherwise specified, testing performed by [facility] [place] [address] 4 Unless otherwise specified, testing performed by [facility] [place] [address] 5 PER NCEP ATP III GUIDELINES: RESULTS LOWER THAN 40 MG/DL ARE SUGGESTIVE OF INCREASED RISK FOR CORONARY ARTERY DISEASE. RESULTS > OR = TO 60 MG/DL ARE CONSIDERED A NEGATIVE RISK FACTOR. 6 INTERPRETATION OF CHOL-HDL RATIO CHD RISK FEMALE MALE VERY HIGH >8.3 >14.3 HIGH 5.6- 8.3 6.7- 14.3 AVERAGE 3.7- 5.6 4.0- 6.7 BELOW AVERAGE 2.5- 3.7 2.7- 4.0 PROTECTED <2.5 <2.7 7 PER NCEP ATP III GUIDELINES: OPTIMAL < 100 NEAR OPTIMAL 100 - 129 BORDERLINE HIGH 130 - 159 HIGH 160 - 189 VERY HIGH > 189 Unless otherwise specified, testing performed [place] [address] 8 This sample is drawn by:tg 9 NORMAL KIDNEY FUNCTION OR MILD DISEASE - GFR >OR= 60 CHRONIC KIDNEY DISEASE - GFR 15 - 59 RENAL FAILURE - GFR <15 Est. GFR calculation based on the MDRD study equation, which assumes a steady state for creatinine. Est. GFR should not be used for medication dosing. Unless otherwise specified, testing performed by [facility] [place] [address] 10 Unless otherwise specified, testing performed by [facility] [address] [place] [address] 11 Prolactin Reference Range: Males 2.5 - 17.4 ng/mL Females Non- 2.2 - 30.3 ng/mL 8.1 - 347.6 ng/mL Postmenopausal 0.7 - 31.5 ng/mL Unless otherwise specified, testing performed by [facility] [address] [place] [address] 12 PER NCEP ATP III GUIDELINES: OPTIMAL < 100 NEAR OPTIMAL 100 - 129 BORDERLINE HIGH 130 - 159 HIGH 160 - 189 VERY HIGH > 189 Unless otherwise specified, testing performed by [facility] [address] [place] [address] 13 >17.9 ug/dL after IV ACTH >15.9 ug/dL after IM ACTH 14 >17.9 ug/dL after IV ACTH >15.9 ug/dL after IM ACTH 15 Ref range for 6-10 am samples: 6.0-18.4 ug/dL Ref range for 4-8 pm samples: 2.7-10.5 ug/dL Ref range not established for other times. 16 (NOTE) ACTH reference interval for samples collected between 7 and 10 AM. Performed At: RN [facility] [address] [id number] Joe Dye MD Ph:[phone] 17 EVAL 18 URINE SPECIMENS ARE SCREENED AT THE LISTED CUTOFFS DRUG CLASS INITIAL TEST LEVEL Amphetamines 1000 ng/mL Barbiturates 200 ng/mL Benzodiazepines 200 ng/mL Cannabinoids 50 ng/mL Cocaine Metabolite 300 ng/mL Methadone 300 ng/mL Opiates 300 ng/mL Any PRESUMPTIVE POSITIVE findings are UNCONFIRMED. Confirmatory testing is suggested if findings are unexpected. Please contact laboratory if confirmatory testing is desired. SPECIMENS ARE HELD FOR 72 HOURS. 19 URINE, CLEAN CATCH 20 THERAPEUTIC RANGE: 15-30 mg/dL POTENTIAL TOXICITY VARIES WITH TIME FROM INGESTION. PLEASE CONSULT APPROPRIATE NOMOGRAM. 21 AGRESSIVE TOWARD OTHER HOUSEMATES 22 URINE, CLEAN CATCH 23 URINE SPECIMENS ARE SCREENED AT THE LISTED CUTOFFS DRUG CLASS INITIAL TEST LEVEL Amphetamines 1000 ng/mL Barbiturates 200 ng/mL Benzodiazepines 200 ng/mL Cannabinoids 50 ng/mL Cocaine Metabolite 300 ng/mL Methadone 300 ng/mL Opiates 300 ng/mL Any PRESUMPTIVE POSITIVE findings are UNCONFIRMED. Confirmatory testing is suggested if findings are unexpected. Please contact laboratory if confirmatory testing is desired. SPECIMENS ARE HELD FOR 72 HOURS. 24 THERAPEUTIC RANGE: 15-30 mg/dL POTENTIAL TOXICITY VARIES WITH TIME FROM INGESTION. PLEASE CONSULT APPROPRIATE NOMOGRAM. 25 Note: Persistent reduction for 3 months or more in an eGFR <60 mL/min/1.73 m2 defines CKD. Patients with eGFR values >/=60 mL/min/1.73 m2 may also have CKD if evidence of persistent proteinuria is present. The original MDRD equation for estimated GFR is not valid for patients less than 18 years of age. Additional information may be found at www.kdoqi.org. 26 Values below the stated reference ranges of AST and ALT can be seen in normal populations. Clinical correlation is suggested. 27 Acetaminophen concentration >150 ug/mL at four hours after ingestion and 50.0 ug/mL at twelve hours after ingestion are often associated with toxic reactions. 28 >17.9 ug/dL after IV ACTH >15.9 ug/dL after IM ACTH 29 >17.9 ug/dL after IV ACTH >15.9 ug/dL after IM ACTH 30 Ref range for 6-10 am samples: 6.0-18.4 ug/dL Ref range for 4-8 pm samples: 2.7-10.5 ug/dL Ref range not established for other times. 31 (NOTE) ACTH reference interval for samples collected between 7 and 10 AM. Performed At: RN [facility] [address] [id number] Joe Dye MD Ph:[phone] 32 FEVER,PAINFUL URINATION, HIT TO THE HEAD 33 Method: BD Affirm VPIII DNA Probe Assay 34 URINE, CLEAN CATCH Procedures Date Code Description Status 03/24/2019 81405 Electrocardiogram Complete Completed 12/19/2018 35516 Admin Of Inj (Therapeutic Phrophylactic Or Diagnostic Subq Completed Inj Medical Devices Description No Information Available Encounters Type Date Location Provider Dx Diagnosis Office Visit 01/22/2019 [facility] E66.9 Obesity, 9:00a Williams Lozano unspecified NAVJOT Mcgowan D72.9 Disorder of white blood cells, unspecified Z00.01 Encounter for general adult medical exam w abnormal findings N64.59 Other signs and symptoms in breast E22.1 Hyperprolactinemia F33.0 Major depressive disorder, recurrent, mild F41.1 Generalized anxiety disorder F70 Mild intellectual disabilities F31.81 Bipolar II disorder G40.909 Epilepsy, unsp, not intractable, without status epilepticus E03.9 Hypothyroidism, unspecified Z13.89 Encounter for screening for other disorder R32 Unspecified urinary incontinence Z68.32 Body mass index (BMI) 32.0-32.9, adult Office Visit 11/08/2018 [facility] Marta, E66.9 Obesity, 2:40p Williams Mcgowan NP unspecified Z68.32 Body mass index (BMI) 32.0-32.9, adult R35.0 Frequency of micturition Assessments Date Code Description Provider 03/24/2019 F70 Mild intellectual disabilities Flora Sin MD 03/24/2019 F33.0 Major depressive disorder, recurrent, Flora Sin MD mild 03/24/2019 F41.1 Generalized anxiety disorder Flora Sin MD 03/24/2019 F31.81 Bipolar II disorder Flora Sin MD 03/24/2019 G40.909 Epilepsy, unspecified, not Flora Sin MD intractable, without status epile 03/24/2019 E03.9 Hypothyroidism, unspecified Flora Sin MD 03/24/2019 R32 Unspecified urinary incontinence Flora Sin MD 03/24/2019 E22.1 Hyperprolactinemia Flora Sin MD 03/24/2019 E55.9 Vitamin D deficiency, unspecified Flora Sin MD 03/24/2019 E53.9 Vitamin B deficiency, unspecified Flora Sin MD 03/24/2019 R94.31 Abnormal electrocardiogram [ECG] [EKG] Flora Sin MD 03/24/2019 E66.09 Other obesity due to excess calories Flora Sin MD 03/24/2019 Z68.32 Body mass index (BMI) 32.0-32.9, adult Flora Sin MD 03/24/2019 E78.5 Hyperlipidemia, unspecified Flora Sin MD 03/24/2019 Z30.8 Encounter for other contraceptive Flora Sin MD management 01/22/2019 E66.9 Obesity, unspecified Deplaquitalis Reina Lzoanoline, [employer] OPERATOR 01/22/2019 D72.9 Disorder of white blood cells, Depdennis Lozano, unspecified Roslyn, AUG[employer] OPERATOR 01/22/2019 Z00.01 Encounter for general adult medical Ivonne Lozano, examination with abnormal findings Roslyn, AUGER OPERATOR 01/22/2019 N64.59 Other signs and symptoms in breast Roslyn Smith, AUGER OPERATOR 01/22/2019 E22.1 Hyperprolactinemia Reina Smithline, AUGER OPERATOR 01/22/2019 F33.0 Major depressive disorder, recurrent, Depdennis Lozano, mild Roslyn, AUGER OPERATOR 01/22/2019 F41.1 Generalized anxiety disorder Roslyn Smith, AUGER OPERATOR 01/22/2019 F70 Mild intellectual disabilities Reina Smithline, AUGER OPERATOR 01/22/2019 F31.81 Bipolar II disorder Roslyn Smith, AUGER OPERATOR 01/22/2019 G40.909 Epilepsy, unspecified, not Depaulis Fiumano, intractable, without status epile Roslyn, AUGER OPERATOR 01/22/2019 E03.9 Hypothyroidism, unspecified Deplaquitalis Reina Lozanoline, AUGER OPERATOR 01/22/2019 Z13.89 Encounter for screening for other Depaulis Fiumano, disorder Roslyn, AUGER OPERATOR 01/22/2019 R32 Unspecified urinary incontinence Reina Smithline, AUGER OPERATOR 01/22/2019 Z68.32 Body mass index (BMI) 32.0-32.9, adult Roslyn Smith, AUGER OPERATOR 12/19/2018 Z30.8 Encounter for other contraceptive Flora Sin MD management 12/19/2018 Z30.8 Encounter for other contraceptive Location V1 Nurse 2 management 12/19/2018 Z32.02 Encounter for test, result Flora Sin MD negative 12/18/2018 E22.1 Hyperprolactinemia Flora Sin MD 12/18/2018 E22.1 Hyperprolactinemia Loc V1 Nurse Blood 12/18/2018 F63.9 Impulse disorder, unspecified Flora Sin MD 12/18/2018 F63.9 Impulse disorder, unspecified Loc V1 Nurse Blood 12/18/2018 Z79.899 Other radiation monitor (current) drug therapy Flora Sin MD 12/18/2018 Z79.899 Other radiation monitor (current) drug therapy Loc V1 Nurse Blood 11/08/2018 E66.9 Obesity, unspecified Roslyn Smith, AUGER OPERATOR 11/08/2018 Z68.32 Body mass index (BMI) 32.0-32.9, adult Roslyn Smith, NAVJOT 11/08/2018 R35.0 Frequency of micturition Roslyn Smith NP Plan of Treatment Future Appointment(s):06/16/2019 10:45 am - Flora Sin MD at [facility]03/24/2019 - Flora Sin MDF70 Mild intellectual disabilitiesComments:We [...] continue current medication regimen. We will continueto monitor.E03.9 Hypothyroidism, unspecifiedComments:The patient was advised to continue on current medication regimen. We will need to monitor her TSH periodically.R32 Unspecified urinary incontinenceComments:She continues to struggle with urinary incontinence. Continue current medication regimen. We will continue to monitor.E22.1 HyperprolactinemiaComments:She is on estrogen replacement therapy. She will follow up with MUSEUM DIRECTOR. We will continue to monitor.E55.9 Vitamin D deficiency, unspecifiedComments:Will continue supplements and we will need to check blood work periodically. Improvement in symptomsseen.E53.9 Vitamin B deficiency, unspecifiedComments:We will continue to monitor her blood work periodically.R94.31 Abnormal electrocardiogram [ECG] [ EKG]Comments:Patient will be scheduled for an echocardiogram due to her abnormal EKG.E66.09 Other obesity due to excess caloriesComments:The patient had gained around 1lb of body weight since the previous visit and she currently weighs around 189lbs. A detailed discussion was had with the patient regarding her body weight and BMI. Shewas made aware about the health hazards of obesity including diabetes, hypertension, cardiac diseases, and other various risk factors. [...] continue to monitor her weight and BMI periodically.E78.5 Hyperlipidemia, [id number] Encounter for other contraceptive managementAllFollow up:The patient will follow-up with me in six weeks for reevaluation. Functional Status Description No Information Available Mental Status Description No Information Available Referrals Refer to Reason for Referral Status Appt Date [facility] H[facility]/ Oncology Sent [address] [place] [address] [id number] [place] [address] [phone] Patient Declined [facility] [address] [place] [phone]
[2019-03-31 15:28] VITALS: BP 132/77
[2019-03-31 15:38] LABS: Influenza A Molecular POSITIVE (Negative)
--- NOTE | 2019-03-31 15:40 | UC ---
Throat Pain/Nasal Hitesh HPI - HPI Summary HPI Summary: 34-year-old woman comes in with a chief complaint of upper respiratory tract infection symptoms for 2 days. She's had a cough and chest congestion. Denies any runny nose. Denies any sore throat or body aches. No history of asthma. A close acquaintance was diagnosed with influenza today. 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 - Family History Known Family History: Positive: Cardiac Disease, Hypertension Family History: Dementia - Social History Alcohol Use: None Substance Use Type: None Smoking Status (MU): Never Smoked Tobacco - Immunization History Vaccination Up to Date: Yes Review of Systems All Other Systems Reviewed And Are Negative: Yes Constitutional: Positive: Other - see hpi Skin: Positive: Negative Eyes: Positive: Negative ENT: Positive: Nasal Discharge Respiratory: Positive: Cough, Other - see hpi Cardiovascular: Positive: Negative Gastrointestinal: Positive: Negative Motor: Positive: Negative Neurovascular: Positive: Negative Musculoskeletal: Positive: Negative Neurological/Mental Status: Positive: Negative Psychological: Positive: Negative Is Patient Immunocompromised?: No Physical Exam Triage Information Reviewed: Yes Appearance: No Pain Distress, Well-Nourished, Ill-Appearing - mild Vital Signs: Initial Vital Signs Temp 98.1 F 03/31/19 15:21 Pulse 97 03/31/19 15:21 Resp 16 03/31/19 15:21 BP 132/77 03/31/19 15:21 Pulse Ox 100 03/31/19 15:21 Vital Signs Reviewed: Yes Eyes: Positive: Conjunctiva Clear ENT: Positive: Pharynx normal, Nasal drainage, TMs normal Neck: Positive: Supple Respiratory: Positive: Lungs clear, Normal breath sounds, No respiratory distress Cardiovascular: Positive: RRR Musculoskeletal: Positive: Strength Intact, ROM Intact Neurological: Positive: Alert, Muscle Tone Normal Psychological: Positive: Age Appropriate Behavior Skin Exam: Normal Throat Pain/Nasal Course/Dx - Differential Dx/Diagnosis Provider Diagnosis: Influenza Discharge ED - Sign-Out/Discharge Documenting (check all that apply): Patient Departure All imaging exams completed and their final reports reviewed: No Studies - Discharge Plan Condition: Stable Disposition: HOME Prescriptions: Oseltamivir CAP* [Tamiflu CAP*] 75 mg PO BID #10 cap Patient Education Materials: Influenza (ED) Referrals: Flora Sin MD [Primary Care Provider] - Additional Instructions: FOLLOW UP WITH YOUR DOCTOR IF NOT COMPLETELY IMPROVED. GET REEVALUATED SOONER IF NOT IMPROVED OR WORSE OR ANY QUESTIONS OR CONCERNS. - Billing Disposition and Condition Condition: STABLE Disposition: Home
== END 2019-03-31 15:57 | disposition home or self-care (01) ==
LOC: UCCORT 14:08
DX: J11.1 Influenza due to unidentified influenza virus with other respiratory manifestations (principal); I10 Essential (primary) hypertension
CPT/HCPCS: 99212; G0463